=== PATIENT | male | born 1965 | race Caucasian/White ===

== ENCOUNTER → 2016-09-02 | Outpatient (CLI) | payer OTHER ==
[~2016-09-02] MED LIST: ATOR-22 PO; AZAT50TA5 PO; CLIN1LOT; CYAN10005 PO; FOLIC ACID PO; FRRG PO; GEMF600T3 PO; LISI-725 PO; PRED10TA PO; PROP80TA2 PO; WARF5TAB7 PO
[2016-09-02 13:15] LABS: BASO % 0.4 %; BASO ABS # 0.04 K/uL (0-0.2); COMPLETE YES; EOS % 1.4 %; HEMATOCRIT 35.4 % (42-52); IG% 2.3 %; INR 2.4 (0.9-1.1); LYMPH % 19.8 %; LYMPH ABS # 1.84 K/uL (1.2-3.4); MEAN CELL VOLUME 98.9 fL (80-100); MEAN CORPUSCULAR HEMOGLOBIN 33.2 pg (25-34); MEAN CORPUSCULAR HGB CONC 33.6 g/dl (32-36); MEAN PLATELET VOLUME 8.9 fL (7.4-10.4); MONO % 8.1 %; PLATELET COUNT 309 K/uL (130-400); PROTHROMBIN TIME (PATIENT) 26.7 SECONDS (9.0-12.0); RED BLOOD COUNT 3.58 M/uL (4.7-6.1); WHITE BLOOD COUNT 9.27 K/uL (4.8-10.8)
[2016-09-02 13:27] LABS: URINE APPEARANCE CLEAR (CLEAR); URINE BILIRUBIN NEG (NEG); URINE COLOR YELLOW; URINE EPITHELIAL CELL AUTO 0-5 /lpf (0-5); URINE NITRITE NEG (NEG); URINE PH 6.5 (4.5-7.5); URINE SPECIFIC GRAVITY 1.009 (1.000-1.030); UROBILINOGEN NEG (NEG)
[2016-09-02 13:44] LABS: MANUAL MICROSCOPIC REQUIRED? NO; REVIEW REQ? NO
[2016-09-02 13:50] LABS: ESTIMATED AVERAGE GLUCOSE 117 mg/dl; HA1C FLAG Normal (Normal)
[2016-09-02 14:16] LABS: ALT/SGPT 16 U/L (12-78); AST/SGOT 16 U/L (15-37); BLOOD UREA NITROGEN 55 mg/dl (7-18); BUN/CREATININE RATIO 21.3 (10-20); CALCIUM 8.6 mg/dl (8.5-10.1); CARBON DIOXIDE 21 mmol/L (21-32); CHLORIDE 105 mmol/L (98-107); CHOLESTEROL 154 mg/dl (0-200); GLUCOSE 99 mg/dl (70-99); POTASSIUM 4.4 mmol/L (3.5-5.1); SODIUM 138 mmol/L (136-145); TRIGLYCERIDES 218 mg/dl (0-150); VERY LOW DENSITY LIPOPROT CALC 44 mg/dl
[2016-09-02 14:19] LABS: CHOLESTEROL/HDL RATIO 3.5; HDL CHOLESTEROL 44 mg/dl; LDL CHOLESTEROL CALCULATED 66 mg/dl
== END | disposition home or self-care (01) ==
LOC: C.LABMFLN 08:34
PROVIDERS: ATTEND Internal Medicine
DX: E78.00 Pure hypercholesterolemia, unspecified (principal); N28.9 Disorder of kidney and ureter, unspecified; D62 Acute posthemorrhagic anemia; I82.409 Acute embolism and thrombosis of unspecified deep veins of unspecified lower extremity; Z94.0 Kidney transplant status

== ENCOUNTER → 2016-12-05 | Outpatient (CLI) | payer OTHER ==
[2016-12-05 13:15] LABS: BASO % 0.4 %; BASO ABS # 0.04 K/uL (0-0.2); COMPLETE YES; HEMATOCRIT 38.5 % (42-52); IG% 2.1 %; LYMPH % 19.6 %; LYMPH ABS # 2.19 K/uL (1.2-3.4); MEAN CELL VOLUME 102.4 fL (80-100); MEAN CORPUSCULAR HGB CONC 32.2 g/dl (32-36); MEAN PLATELET VOLUME 9.1 fL (7.4-10.4); NEUT % 69.9 %; PLATELET COUNT 315 K/uL (130-400); RED BLOOD COUNT 3.76 M/uL (4.7-6.1); WHITE BLOOD COUNT 11.19 K/uL (4.8-10.8)
[2016-12-05 14:01] LABS: BLOOD UREA NITROGEN 58 mg/dl (7-18); BUN/CREATININE RATIO 23.2 (10-20); CARBON DIOXIDE 24 mmol/L (21-32); CHLORIDE 106 mmol/L (98-107); GLUCOSE 95 mg/dl (70-99); POTASSIUM 4.4 mmol/L (3.5-5.1); SODIUM 140 mmol/L (136-145)
[2016-12-05 14:06] LABS: FERRITIN 1837.9 ng/ml (8.0-388.0); TOTAL IRON BINDING CAPACITY 265 mcg/dl (250-450)
== END | disposition home or self-care (01) ==
LOC: C.LABMFLN 09:00
PROVIDERS: ATTEND Internal Medicine
DX: M10.9 Gout, unspecified (principal); N18.9 Chronic kidney disease, unspecified

== ENCOUNTER → 2016-12-21 | Outpatient (CLI) | payer OTHER ==
[2016-12-21 13:05] LABS: INR 2.1 (0.9-1.1); PROTHROMBIN TIME (PATIENT) 23.4 SECONDS (9.0-12.0)
== END | disposition home or self-care (01) ==
LOC: C.LABMFLN 08:49
PROVIDERS: ATTEND Internal Medicine
DX: I82.409 Acute embolism and thrombosis of unspecified deep veins of unspecified lower extremity (principal)

== ENCOUNTER → 2017-03-16 | Outpatient (CLI) | payer OTHER ==
[2017-03-16 13:37] LABS: HEMATOCRIT 35.8 % (42-52); MEAN CELL VOLUME 102.6 fL (80-100); MEAN CORPUSCULAR HGB CONC 32.1 g/dl (32-36); PLATELET COUNT 331 K/uL (130-400); RED BLOOD COUNT 3.49 M/uL (4.7-6.1); WHITE BLOOD COUNT 9.61 K/uL (4.8-10.8)
[2017-03-16 13:52] LABS: INR 2.2 (0.9-1.1); PROTHROMBIN TIME (PATIENT) 24.1 SECONDS (9.0-12.0)
[2017-03-16 14:21] LABS: ESTIMATED AVERAGE GLUCOSE 117 mg/dl; HA1C FLAG Normal (Normal)
[2017-03-16 14:34] LABS: ALT/SGPT 18 U/L (12-78); AST/SGOT 18 U/L (15-37); BLOOD UREA NITROGEN 46 mg/dl (7-18); BUN/CREATININE RATIO 19.1 (10-20); CALCIUM 8.3 mg/dl (8.5-10.1); CARBON DIOXIDE 22 mmol/L (21-32); CHLORIDE 107 mmol/L (98-107); CHOLESTEROL 143 mg/dl (0-200); GLUCOSE 93 mg/dl (70-99); POTASSIUM 4.4 mmol/L (3.5-5.1); SODIUM 138 mmol/L (136-145); TRIGLYCERIDES 269 mg/dl (0-150); VERY LOW DENSITY LIPOPROT CALC 54 mg/dl
[2017-03-16 14:41] LABS: COMPLETE YES; EOSINOPHIL % 2.6 %; LYMPH ABS # 4.01 K/uL (1.2-3.4); LYMPHOCYTE % 41.7 %; MYELOCYTE % 3.5 %
[2017-03-16 14:45] LABS: CHOLESTEROL/HDL RATIO 3.8; HDL CHOLESTEROL 38 mg/dl; LDL CHOLESTEROL CALCULATED 51 mg/dl
[2017-03-16 14:46] LABS: URINE APPEARANCE CLEAR (CLEAR); URINE BILIRUBIN NEG (NEG); URINE COLOR YELLOW; URINE EPITHELIAL CELL AUTO 0-5 /lpf (0-5); URINE NITRITE NEG (NEG); URINE PH 6.5 (4.5-7.5); URINE SPECIFIC GRAVITY 1.012 (1.000-1.030); UROBILINOGEN NEG (NEG)
[2017-03-16 14:51] LABS: MANUAL MICROSCOPIC REQUIRED? NO; REVIEW REQ? NO
== END | disposition home or self-care (01) ==
LOC: C.LABMFLN 07:14
PROVIDERS: ATTEND Internal Medicine
DX: E78.00 Pure hypercholesterolemia, unspecified (principal); I82.409 Acute embolism and thrombosis of unspecified deep veins of unspecified lower extremity

== ENCOUNTER → 2017-06-28 | Outpatient (CLI) | payer OTHER ==
[2017-06-28 12:45] LABS: BASO % 0.4 %; BASO ABS # 0.05 K/uL (0-0.2); COMPLETE YES; EOS % 1.3 %; HEMATOCRIT 36.7 % (42-52); IG% 1.7 %; LYMPH % 16.5 %; LYMPH ABS # 2.01 K/uL (1.2-3.4); MEAN CELL VOLUME 102.8 fL (80-100); MEAN CORPUSCULAR HEMOGLOBIN 33.1 pg (25-34); MEAN CORPUSCULAR HGB CONC 32.2 g/dl (32-36); MEAN PLATELET VOLUME 9.1 fL (7.4-10.4); MONO % 5.7 %; NEUT % 74.4 %; PLATELET COUNT 265 K/uL (130-400); RED BLOOD COUNT 3.57 M/uL (4.7-6.1); WHITE BLOOD COUNT 12.21 K/uL (4.8-10.8)
[2017-06-28 13:06] LABS: BLOOD UREA NITROGEN 70 mg/dl (7-18); BUN/CREATININE RATIO 27.6 (10-20); CALCIUM 8.8 mg/dl (8.5-10.1); CARBON DIOXIDE 22 mmol/L (21-32); CHLORIDE 107 mmol/L (98-107); CREATININE 2.53 mg/dl (0.60-1.40); GLUCOSE 100 mg/dl (70-99); POTASSIUM 4.1 mmol/L (3.5-5.1); SODIUM 137 mmol/L (136-145)
== END | disposition home or self-care (01) ==
LOC: C.LABMFLN 07:30
PROVIDERS: ATTEND Internal Medicine
DX: E78.00 Pure hypercholesterolemia, unspecified (principal)

== ENCOUNTER 2023-06-22 15:49 | Inpatient (IN) ==
--- NOTE | 2023-06-22 16:48 | XRay Report ---
XR chest 1V not portable CLINICAL HISTORY: Chest pain, nonspecific TECHNIQUE: Single frontal radiograph of the chest was obtained. Comparison: Comparison is made to chest radiograph 11/05/2018 FINDINGS: No lines and tubes are seen. The cardiomediastinal silhouette is normal. The lungs are clear. No evid ence of pleural effusion or pneumothorax. IMPRESSION: No acute chest disease. ACT 112: Negative or not required by law. Electronically signed by: Zak Arredondo M.D. 06/22/2023 4:47 PM
[2023-06-22 18:10] LABS: Basophils # (auto) 0.08 K/uL (0.00-0.20); Basophils % (auto) 0.6 %; Eosinophils # (auto) 0.16 K/uL (0.00-0.50); Eosinophils % (auto) 1.2 %; Hematocrit (blood only) 35.7 % (42.0-52.0); Hemoglobin 11.5 g/dl (14.0-18.0); Immature Granulocytes % (auto) 4.4 %; Lymphocytes % (auto) 7.4 %; Mean Corpuscular Hemoglobin 33.8 pg (25.0-34.0); Mean Corpuscular Hgb Conc 32.2 g/dL (32.0-36.0); Mean Platelet Volume 8.9 fL (9.4-12.4); Monocytes # (auto) 0.66 K/uL (0.11-0.59); Monocytes % (auto) 4.9 %; Neutrophils # (auto) 11.05 K/uL (1.40-6.50); Neutrophils % (auto) 81.5 %; Platelet Count 434 K/uL (130-400); RDW Coefficient of Variation 15.3 % (11.5-14.5); RDW Standard Deviation 59.1 fL (36.4-46.3); White Blood Count 13.55 K/ul (4.8-10.8)
[2023-06-22 18:26] LABS: Albumin Globulin Ratio 1.3 (0.9-2); BUN Creatinine Ratio 23.9 (10-20); Bilirubin,Total 0.5 mg/dl (0.2-1.0); Calcium 8.7 mg/dl (8.6-10.3); Creatinine Clr Calc Pharmacy 25.7 ml/min; Est GFR (African American) 25.7 ml/min; Est GFR (Non-African American) 22.2 ml/min; Globulin 3.1 gm/dl (2.5-4.0); Potassium 5.1 mmol/L (3.5-5.1); Total Protein 7.1 gm/dl (6.0-8.3)
[2023-06-22 18:36] LABS: Troponin I High Sensitivity 264.2 pg/ml (0-20)
[2023-06-22 18:37] LABS: INR 2.1 (0.9-1.1); Partial Thromboplastin Ratio 1.2; Partial Thromboplastin Time 32.5 Seconds (21.0-31.0); Prothrombin Time 22.4 Seconds (9.0-12.0)
--- NOTE | 2023-06-22 19:05 | Emergency Department Note ---
Impression & Plan KNOX (dyspnea on exertion), Chest discomfort, Elevated troponin, CKD (chronic kidney disease) ED Provider Note ED Provider Note NAME: GUERO SIMEON AGE:58 SEX: Male : 1965 ARRIVES VIA: Private vehicle INFORMANT: Patient ED PROVIDER(s): Heather Alicea DO CHIEF COMPLAINT: Dyspnea on exertion, chest discomfort, referred here by nephrology HPI: This is a 58-year-old male who presents to the emergency department due to concern for increased dyspnea with exertion with accompanying chest discomfort that he describes as a burning. Patient mention this to other providers today when he was having a check of his INR and they contacted his flood control engineer, Dr. Noyola, who instructed him this afternoon to come to the emergency room for additional evaluation. Patient denies any history of heart problems. He states there are sick people at work although he has not otherwise felt overtly ill. He denies any fevers, chills, URI symptoms. No recent increased leg swelling. Patient is a kidney transplant patient. Transplant performed back in 1979. He states only recent medication change was a calcium supplement that was added several weeks ago. He states he did have a sinus infection about 3 to 4 weeks ago but felt as though that had resolved. INR today 2.1. Patient does have a history of DVT, and states there is an inherited clotting disorder in his family. PAST MEDICAL HISTORY:See Below PAST SURGICAL HISTORY:See Below FAMILY HISTORY:See Below SOCIAL HISTORY:See Below HOME MEDICATIONS:See Below ALLERGIES:See Below VITALS:See Below PHYSICAL EXAMINATION: GENERAL: alert, well appearing, well nourished, no distress, non-toxic EYE EXAM: normal conjunctiva, PERRL and EOM's grossly intact OROPHARYNX: no exudate, no erythema, lips, buccal mucosa, and tongue normal and mucous membranes are moist NECK: supple, no nuchal rigidity, no adenopathy, non-tender LUNGS: Clear to auscultation. Normal chest wall mechanics, no w/r/r HEART: no murmurs, S1 normal and S2 normal ABDOMEN: abdomen soft, non-tender, normo-active bowel sounds, no masses, no rebound or guarding. BACK: Back is symmetrical on inspection and there is no deformity, no midline tenderness, no CVA tenderness. SKIN: no rashes, petechiae, orbruising UPPER EXTREMITIES: upper extremities are grossly normal. FROM, nml pulses b/l. LOWER EXTREMITIES: No pitting edema. FROM, nml pulses b/l. NEURO EXAM: Normal sensorium, cranial nerves II-XII grossly intact, normal speech, no facial droop,nogross weakness of arms, no gross weakness of legs. Gross sensation intact. No ataxia. Vital Signs: reviewed and remarkable Differential Diagnosis: pneumonia, bronchitis, COPD/Asthma exacerbation, pneumothorax, pulmonary embolism, congestive heart failure, acute coronary syndrome, as well as others were considered MEDICAL DECISION MAKING: This is a 58-year-old male presents emergency department due to concern for 2 weeks of increased dyspnea on exertion and chest discomfort. Patient well- appearing here and had no symptoms while at rest. He was afebrile vital signs stable. Labs drawn and sent, IV established, EKG and chest were performed at bedside and interpreted by me and patient monitored in telemetry. I did discuss case with the patient's flood control engineer this patient stated he had been referred here by nephrology. I do not feel this is a primary nephrology problem. I was concerned and discussed with the patient additional inpatient evaluation due to possible cardiac etiology of his symptoms. Patient does have multiple risk factors for coronary artery disease. Case discussed with the mother and the hospitalist team for additional evaluation and management. Patient had no acute EKG changes. He was noted to have an elevated troponin. While patient does have chronic kidney disease, the troponin elevation feels disproportional and there are no priors to compare to. A bio fire nasal swab was added and did show COVID-19. I suspect this may be from patient's reported sinus infection 3 weeks ago as patient has no further URI symptoms, fevers or chills in the last 2 weeks. I do not suspect acute vascular etiology of his symptoms. I have a low suspicion for occult PE as patient is anticoagulated. Consultation(s): 1944: Discussed with Dr. Noyola, nephrology. We reviewed labs. Patient is stable from a renal perspective. 2039: Discussed with Dr. Pham, not any hospitalist, for additional evaluation and management. ER Treatment Provided: See below Diagnostics Interpreted By Me: -ECG: Normal sinus at 75 with first-degree AV block, leftward axis, right bundle branch block, normal QTc, ST depression noted in 1, aVL -Cardiac Monitoring: An order was placed for continuous cardiac monitoring. The monitor shows a rate of 70 with normal sinus rhythm. -Laboratory studies: As stated above and show below. -Imaging studies: X-ray Chest: A single view study of the chest was reviewed and was negative for cardiomegaly, focal infiltrate, effusion, pulmonary edema, or wide mediastinum. Triage Nursing Note Reviewed Prior/Outside Records Reviewed -prior nephrology office visit reviewed Past Med/Surg History Medical History Blood clotting disorder pt unable to specify -- dx after DVT LLE > 5 years ago - on warfarin Chronic steroid use Gout Osteoarthritis History of renal dialysis prior to transplant History of GI bleed GERD (gastroesophageal reflux disease) TUMS prn History of DVT (deep vein thrombosis) LLE - > 5 years ago - clotting disorder - on warfarin Anemia due to chronic kidney disease Anticoagulant long-term use Gout Hypercholesterolemia Hypertension Immunosuppressed status 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 Lynn Family History Brother Diabetes Mother Diabetes Other Coronary heart disease Heart disease Hypertension No family history of adverse response to anesthesia Social History Smoking Status: Never smoker Second Hand Exposure: No; Do You Dip or Chew Tobacco: No; Hx Alcohol Use: No Hx Substance Use: No Preferred Language: Mauritanian Communication Ability: Effective Visual Impairment: No Limitations Hearing Ability: Normal Egyptologist Required: No Beliefs That Will Affect Care: None Current Living Situation: Spouse Current Living Situation Comment: home with current occupational status: employed Feels Safe at Home: Yes Assistive Devices: None Allergies Allergies Allergy/AdvReac Type Severity Reaction Status Date / Time NSAIDS (Non-Steroidal AdvReac Unknown GI bleeds Verified 06/22/23 19:55 Anti-Inflamma Home Meds Home Medications Medication Instructions Recorded Confirmed folic acid 800 mcg tablet 800 mcg PO DAILY 10/25/19 06/22/23 calcium carbonate 300 mg (750 mg) 300 mg PO BID PRN Heartburn 01/01/20 06/22/23 chewable tablet (Tums) cyanocobalamin (vitamin B-12) 2,000 mcg PO DAILY 01/12/23 06/22/23 1,000 mcg tablet calcitriol 0.25 mcg capsule 0.25 mcg PO HS 06/22/23 06/22/23 gemfibrozil 600 mg tablet 600 mg PO HS 06/22/23 06/22/23 hydrocortisone 2.5 % topical cream 1 applic topical BID PRN Skin 06/22/23 06/22/23 Irritation lisinopril 20 mg tablet 20 mg PO QAM 06/22/23 06/22/23 Previous Rx's Medication Instructions Recorded warfarin 5 mg tablet 5 mg PO DAILY #90 tabs 03/01/22 clindamycin 1 %-benzoyl peroxide 5 1 applic topical BID PRN acne #45 07/08/22 % topical gel grams atorvastatin 20 mg tablet 20 mg PO QPM #90 tabs 07/11/22 propranolol 160 mg capsule,24 160 mg PO BID #180 caps 10/14/22 hr,extended release amoxicillin 500 mg tablet 2,000 mg (4 x 500 mg) PO ONCE #4 01/17/23 tabs azathioprine 50 mg tablet 150 mg (3 x 50 mg) PO QAM #270 tabs 03/09/23 prednisone 10 mg tablet 10 mg PO QAM #90 tabs 04/28/23 Results & Data (ED) Vital Signs Vital Signs - 24 hr 06/22/23 16:04 06/22/23 18:44 06/22/23 18:46 Temperature 36.4 C L Temperature Source Temporal Artery Scan Pulse Rate 73 Pulse Rate [Apical] 81 Respiratory Rate 20 19 Respiratory Effort / Characteristics Non-Labored Spontaneous Non-Labored Spontaneous Respiratory Depth Normal Normal Respiratory Pattern Regular Blood Pressure 169/107 H Blood Pressure [Right Arm] 182/109 H Blood Pressure Mean 127 Blood Pressure Mean [Right Arm] 133 Blood Pressure Position [Right Arm] Semi-fowlers Pulse Oximetry 97 99 Oxygen Delivery Method Room Air Room Air Room Air Sepsis Recent Fever Within 48 Hours No Sepsis New/Unexplained Change in Mental Status No Sepsis Action Taken by Nursing No Action Required 06/22/23 18:54 06/22/23 19:17 06/22/23 19:18 Temperature Temperature Source Pulse Rate 77 Pulse Rate [Apical] Respiratory Rate Respiratory Effort / Characteristics Respiratory Depth Respiratory Pattern Blood Pressure Blood Pressure [Right Arm] 178/114 H Blood Pressure Mean Blood Pressure Mean [Right Arm] 135 Blood Pressure Position [Right Arm] Semi-fowlers Pulse Oximetry Oxygen Delivery Method Room Air Sepsis Recent Fever Within 48 Hours Sepsis New/Unexplained Change in Mental Status Sepsis Action Taken by Nursing Laboratory Data 06/23/23 03:39 06/23/23 03:39 Lab Results 06/22/23 06/22/23 06/22/23 Range/Units 17:46 19:16 20:00 WBC 13.55 H (4.8-10.8) K/ul RBC 3.40 L (4.70-6.10) M/uL Hgb 11.5 L (14.0-18.0) g/dl Hct 35.7 L (42.0-52.0) % MCV 105.0 H (80.0-100.0) fL MCH 33.8 (25.0-34.0) pg MCHC 32.2 (32.0-36.0) g/dL RDW Std Deviation 59.1 H (36.4-46.3) fL RDW Coeff of Zeus 15.3 H (11.5-14.5) % Plt Count 434 H (130-400) K/uL MPV 8.9 L (9.4-12.4) fL Immature Gran % (Auto) 4.4 % Neut % (Auto) 81.5 % Lymph % (Auto) 7.4 % Mcpherson % (Auto) 4.9 % Eos % (Auto) 1.2 % Baso % (Auto) 0.6 % Neut # (Auto) 11.05 H (1.40-6.50) K/uL Lymph # (Auto) 1.00 L (1.20-3.40) K/uL Mcpherson # (Auto) 0.66 H (0.11-0.59) K/uL Eos # (Auto) 0.16 (0.00-0.50) K/uL Baso # (Auto) 0.08 (0.00-0.20) K/uL Immature Gran # (Auto) 0.60 H (0.01-0.20) K/uL PT 22.4 H (9.0-12.0) Seconds INR 2.1 H (0.9-1.1) APTT 32.5 H (21.0-31.0) Seconds PTT Ratio 1.2 Sodium 136 (136-145) mmol/L Potassium 5.1 (3.5-5.1) mmol/L Chloride 107 (98-107) mmol/L Carbon Dioxide 19 L (21-32) mmol/L Anion Gap 10 (3-11) BUN 71 H (6-23) mg/dl Creatinine 2.97 H (0.6-1.4) mg/dl Est Cr Clr Drug Dosing 25.7 ml/min Est GFR ( Amer) 25.7 ml/min Est GFR (Non-Af Amer) 22.2 ml/min BUN/Creatinine Ratio 23.9 H (10-20) Glucose 109 H (70-99(Fasting)) mg/dl Calcium 8.7 (8.6-10.3) mg/dl Total Bilirubin 0.5 (0.2-1.0) mg/dl AST 16 (13-39) U/L ALT 9 (7-52) U/L Alkaline Phosphatase 46 (34-104) U/L Troponin I High Sens 264.2 H* 285.2 H* (0-20) pg/ml Total Protein 7.1 (6.0-8.3) gm/dl Albumin 4.0 (3.4-5.0) gm/dl Globulin 3.1 (2.5-4.0) gm/dl Albumin/Globulin Ratio 1.3 (0.9-2) Procalcitonin < 0.05 (0-0.5) ng/ml Adenovirus (PCR) Not Detected (NotDetected) B. pertussis DNA (PCR) Not Detected (NotDetected) B.parapertussis DNA PCR Not Detected (NotDetected) C. pneumoniae DNA (PCR) Not Detected (NotDetected) Coronavirus OC43 (PCR) Not Detected (NotDetected) Coronavirus HKU1 (PCR) Not Detected (NotDetected) Coronavirus 229E (PCR) Not Detected (NotDetected) SARS-CoV-2 (PCR) DETECTED A* (NotDetected) Coronavirus NL63 (PCR) Not Detected (NotDetected) Human Metapneumovir PCR Not Detected (NotDetected) Influenza Type A (PCR) Not Detected (NotDetected) Influenza Type B (PCR) Not Detected (NotDetected) M. pneumoniae (PCR) Not Detected (NotDetected) Parainfluenza 1 (PCR) Not Detected (NotDetected) Parainfluenza 2 (PCR) Not Detected (NotDetected) Parainfluenza 3 (PCR) Not Detected (NotDetected) Parainfluenza 4 (PCR) Not Detected (NotDetected) RSV (PCR) Not Detected (NotDetected) Entero/Rhino (PCR) Not Detected (NotDetected) Administered Medications Atorvastatin Calcium (Atorvastatin 20 Mg Tab) 20 mg PO QPM [facility] Stop: 07/23/23 01:05 Last Admin: 06/23/23 21:23 Dose: 20 mg Documented By: JOSE GUADALUPE Admin: 06/23/23 02:17 Dose: 20 mg Documented By: PENELOPE Azathioprine (Azathioprine 50 Mg Tab) [facility] [place] Stop: 07/23/23 08:59 Last Admin: 06/23/23 08:11 Dose: 150 mg Documented By: QGV Calcitriol (Calcitriol 0.25 Mcg Capsule) 0.25 mcg PO [facility] Stop: 07/23/23 01:05 Last Admin: 06/23/23 21:23 Dose: 0.25 mcg Documented By: JOSE GUADALUPE Admin: 06/23/23 02:17 Dose: 0.25 mcg Documented By: PENELOPE Gemfibrozil (Gemfibrozil 600 Mg Tab) 600 mg PO [facility] Stop: 07/23/23 01:05 Last Admin: 06/23/23 21:22 Dose: 600 mg Documented By: JOSE GUADALUPE Admin: 06/23/23 02:17 Dose: 600 mg Documented By: PENELOPE Lisinopril (Lisinopril 20 Mg Tab) 20 mg PO QAM [facility] Stop: 07/23/23 08:59 Last Admin: 06/23/23 08:10 Dose: 20 mg Documented By: QGV Pantoprazole Sodium (Pantoprazole 40 Mg Tab) 40 mg PO DAILY [facility] Stop: 07/23/23 08:59 Last Admin: 06/23/23 08:10 Dose: 40 mg Documented By: QGV Prednisone (Prednisone 10 Mg Tablet) 10 mg PO QAM [facility] Stop: 07/23/23 08:59 Last Admin: 06/23/23 08:11 Dose: 10 mg Documented By: QGV Propranolol HCl (Propranolol Hcl La 80 Mg Capcr) 160 mg PO BID [facility] Stop: 07/23/23 01:05 Last Admin: 06/23/23 21:23 Dose: 160 mg Documented By: Admin: 06/23/23 08:11 Dose: 160 mg Documented By: Admin: 06/23/23 02:17 Dose: 160 mg Documented By: KMB Warfarin Sodium (Warfarin Sod 2.5 Mg Tab) 2.5 mg PO MoFr@1600 [facility] Stop: 07/23/23 15:59 Last Admin: 06/23/23 17:19 Dose: 2.5 mg Documented By: MES Imaging Data Radiologist's Impression: Chest X-Ray 06/22/23 16:07 XR chest 1V not portable CLINICAL HISTORY: Chest pain, nonspecific TECHNIQUE: Single frontal radiograph of the chest was obtained. Comparison: Comparison is made to chest radiograph 11/05/2018 FINDINGS: No lines and tubes are seen. The cardiomediastinal silhouette is normal. The lungs are clear. No evidence of pleural effusion or pneumothorax. IMPRESSION: No acute chest disease. ACT 112: Negative or not required by law. Electronically signed by: Zak Arredondo M.D. 06/22/2023 4:47 PM Discharge Plan Visit Data Chief Complaint: Shortness of Breath/Dyspnea Stated Complaint: REF BY ZULY VELARDE ED Provider: Heather Alicea Discharge Problem: KNOX (dyspnea on exertion), Chest discomfort, Elevated troponin, CKD (chronic kidney disease) Patient Disposition: Home - Self-Care Discharge Instructions Interventions: ED Discharge Assessment Last Done: 06/23/23 01:07
[2023-06-22 20:43] LABS: Adenovirus PCR Not Detected (NotDetected); Bordetella parapertussis PCR Not Detected (NotDetected); Bordetella pertussis PCR Not Detected (NotDetected); Chlamydia pneumoniae PCR Not Detected (NotDetected); Coronavirus 229E PCR Not Detected (NotDetected); Coronavirus HKU1 PCR Not Detected (NotDetected); Coronavirus NL63 PCR Not Detected (NotDetected); Coronavirus OC43PCR Not Detected (NotDetected); Human Metapneumovirus PCR Not Detected (NotDetected); Influenza A PCR Not Detected (NotDetected); Influenza B PCR Not Detected (NotDetected); Mycoplasma pneumoniae PCR Not Detected (NotDetected); Parainfluenza Virus 1 PCR Not Detected (NotDetected); Parainfluenza Virus 2 PCR Not Detected (NotDetected); Parainfluenza Virus 3 PCR Not Detected (NotDetected); Parainfluenza Virus 4 PCR Not Detected (NotDetected); Respiratory Syncytial VirusPCR Not Detected (NotDetected); Rhinovirus/Enterovirus PCR Not Detected (NotDetected)
[2023-06-22 20:48] LABS: Coronavirus CoV-2 (COVID19)PCR DETECTED (NotDetected)
--- NOTE | 2023-06-22 20:51 | History & Physical Report ---
Date of Service June 22, 2023 Assessment & Plan (1) Shortness of breath: Plan: +Covid-19 may be etiology of patient's SOB. He reports a head cold two weeks ago - this may have been the initial infection now with continued positive PCR testing? Difficult to tell. Concern also for elevated troponin and patient's report of exertional "heart burn symptoms" -Trend troponin -Check 2 echo -Symptomatic management for Covid (2) Elevated troponin: Plan: Patient denies chest pain. -Trend troponin -Patient may benefit from outpatient stress testing (3) Kidney replaced by transplant: Plan: Chronic -Continue Prednisone History of Present Illness Chief Complaint: shortness of breath Primary Care Provider: Jorge Luis Noyola DO 58yo male with history of renal transplant on Prednisone, hypercoag state on Coumadin anticoagulation presenting with progressive dyspnea over the last few weeks. He reports he had a cold 2 weeks ago. He has occasional chest discomfort and sensation of heart burn and nausea after exertion - walking up two flights of stairs triggers these symptoms. He denies overt chest pain, palpitations or edema, no orthopnea or weight gain. No fever, chills, vomiting or diarrhea. Allergies Allergy/AdvReac Type Severity Reaction Status Date / Time NSAIDS (Non-Steroidal AdvReac Unknown GI bleeds Verified 06/22/23 19:55 Anti-Inflamma Home Medications Medication Instructions Recorded Confirmed Type folic acid 800 mcg tablet 800 mcg PO DAILY 10/25/19 06/22/23 History calcium carbonate 300 mg (750 mg) 300 mg PO BID PRN Heartburn 01/01/20 06/22/23 History chewable tablet (Tums) warfarin 5 mg tablet 5 mg PO DAILY #90 tabs 03/01/22 06/22/23 Rx clindamycin 1 %-benzoyl peroxide 5 1 applic topical BID PRN acne #45 07/08/22 06/22/23 Rx % topical gel grams atorvastatin 20 mg tablet 20 mg PO QPM #90 tabs 07/11/22 06/22/23 Rx propranolol 160 mg capsule,24 160 mg PO BID #180 caps 10/14/22 06/22/23 Rx hr,extended release cyanocobalamin (vitamin B-12) 2,000 mcg PO DAILY 01/12/23 06/22/23 History 1,000 mcg tablet amoxicillin 500 mg tablet 2,000 mg (4 x 500 mg) PO ONCE #4 06/27/23 11/30/23 Rx tabs azathioprine 50 mg tablet 150 mg (3 x 50 mg) PO QAM #270 tabs 03/09/23 06/22/23 Rx prednisone 10 mg tablet 10 mg PO QAM #90 tabs 04/28/23 06/22/23 Rx calcitriol 0.25 mcg capsule 0.25 mcg PO HS 06/22/23 06/22/23 History gemfibrozil 600 mg tablet 600 mg PO HS 06/22/23 06/22/23 History hydrocortisone 2.5 % topical cream 1 applic topical BID PRN Skin 06/22/23 06/22/23 History Irritation lisinopril 20 mg tablet 20 mg PO QAM 06/22/23 06/22/23 History Past Med/Surg History Medical History Blood clotting disorder pt unable to specify -- dx after DVT LLE > 5 years ago - on warfarin Chronic steroid use Gout Osteoarthritis History of renal dialysis prior to transplant History of GI bleed GERD (gastroesophageal reflux disease) TUMS prn History of DVT (deep vein thrombosis) LLE - > 5 years ago - clotting disorder - on warfarin Anemia due to chronic kidney disease Anticoagulant long-term use Gout Hypercholesterolemia Hypertension Immunosuppressed status 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 Lynn Family History Brother Diabetes Mother Diabetes Other Coronary heart disease Heart disease Hypertension No family history of adverse response to anesthesia Social History Smoking Status: Never smoker Second Hand Exposure: No; Do You Dip or Chew Tobacco: No; Tobacco Cessation Education Requested by Patient: No Hx Alcohol Use: No Hx Substance Use: No Preferred Language: Armenian Communication Ability: Effective Visual Impairment: No Limitations Hearing Ability: Normal Trial Judge Required: No Beliefs That Will Affect Care: None Current Living Situation: Spouse Current Living Situation Comment: home with current occupational status: employed Other Information That Helps Us Care for You: No Feels Safe at Home: Yes Safety Concerns: Feels Safe At This Time Assistive Devices: Glasses Review of Systems Review of Systems: All systems reviewed & are unremarkable except as noted in HPI & below Physical Exam Physical Exam: General: patient resting comfortably, NAD, non-toxic in appearance, AA&O x 4 Skin: warm, dry, intact, no rashes or lesions HEENT: NC/AT, PERRL, EOMI, anicteric sclera, conjunctiva without injection, external ear normal to inspection and nontender, nares patent, moist mucus membranes, dentition intact, no oropharyngeal lesions, neck supple, trachea midline, no LAD, no thyromegaly, no JVD Heart: +S1/S2, regular, no m/r/g Lungs: equal air entry bilaterally, no rales/rhonchi/wheezes Abd: +BS, soft, NT/ND, no masses/organomegaly/ascites, transplant in RLQ - no tenderness Ext: warm, 2+ pulses in UE/LE bilaterally, no clubbing/cyanosis or edema Neuro: nonfocal, patient AA&O x 4, speech intact, no facial droop, moving all extremities on command with equal strength 5/5 Results & Data Results & Data Vital Signs (Past 12 Hours) Vital Signs Temp Pulse Pulse Resp BP BP Pulse Ox 06/22/23 19:18 06/22/23 19:17 178/114 H 06/22/23 18:54 77 06/22/23 18:46 99 06/22/23 18:44 81 19 182/109 H 06/22/23 16:04 36.4 C L 73 20 169/107 H 97 O2 Del Method 06/22/23 19:18 Room Air 06/22/23 19:17 06/22/23 18:54 06/22/23 18:46 Room Air 06/22/23 18:44 Room Air 06/22/23 16:04 Room Air Laboratory Results Laboratory Results WBC 10.64 K/ul (4.8-10.8) 06/23/23 03:39 RBC 3.06 M/uL (4.70-6.10) L 06/23/23 03:39 Hgb 10.4 g/dl (14.0-18.0) L 06/23/23 03:39 Hct 32.0 % (42.0-52.0) L 06/23/23 03:39 MCV 104.6 fL (80.0-100.0) H 06/23/23 03:39 MCH 34.0 pg (25.0-34.0) 06/23/23 03:39 MCHC 32.5 g/dL (32.0-36.0) 06/23/23 03:39 RDW Std Deviation 58.6 fL (36.4-46.3) H 06/23/23 03:39 RDW Coeff of Zeus 15.3 % (11.5-14.5) H 06/23/23 03:39 Plt Count 376 K/uL (130-400) 06/23/23 03:39 MPV 8.8 fL (9.4-12.4) L 06/23/23 03:39 Immature Gran % (Auto) 4.4 % 06/22/23 17:46 Neut % (Auto) 81.5 % 06/22/23 17:46 Lymph % (Auto) 7.4 % 06/22/23 17:46 Ferry % (Auto) 4.9 % 06/22/23 17:46 Eos % (Auto) 1.2 % 06/22/23 17:46 Baso % (Auto) 0.6 % 06/22/23 17:46 Neut # (Auto) 11.05 K/uL (1.40-6.50) H 06/22/23 17:46 Lymph # (Auto) 1.00 K/uL (1.20-3.40) L 06/22/23 17:46 Ferry # (Auto) 0.66 K/uL (0.11-0.59) H 06/22/23 17:46 Eos # (Auto) 0.16 K/uL (0.00-0.50) 06/22/23 17:46 Baso # (Auto) 0.08 K/uL (0.00-0.20) 06/22/23 17:46 Immature Gran # (Auto) 0.60 K/uL (0.01-0.20) H 06/22/23 17:46 PT 21.7 Seconds (9.0-12.0) H 06/23/23 03:39 INR 2.1 (0.9-1.1) H 06/23/23 03:39 APTT 32.5 Seconds (21.0-31.0) H 06/22/23 17:46 PTT Ratio 1.2 06/22/23 17:46 Sodium 139 mmol/L (136-145) 06/23/23 03:39 Potassium 4.2 mmol/L (3.5-5.1) 06/23/23 03:39 Chloride 110 mmol/L (98-107) H 06/23/23 03:39 Carbon Dioxide 19 mmol/L (21-32) L 06/23/23 03:39 Anion Gap 10 (3-11) 06/23/23 03:39 BUN 70 mg/dl (6-23) H 06/23/23 03:39 Creatinine 2.95 mg/dl (0.6-1.4) H 06/23/23 03:39 Est Cr Clr Drug Dosing 25.8 ml/min 06/23/23 03:39 Est GFR ( Amer) 25.9 ml/min 06/23/23 03:39 Est GFR (Non-Af Amer) 22.3 ml/min 06/23/23 03:39 BUN/Creatinine Ratio 23.7 (10-20) H 06/23/23 03:39 Glucose 86 mg/dl (70-99(Fasting)) 06/23/23 03:39 Calcium 8.0 mg/dl (8.6-10.3) L 06/23/23 03:39 Total Bilirubin 0.5 mg/dl (0.2-1.0) 06/22/23 17:46 AST 16 U/L (13-39) 06/22/23 17:46 ALT 9 U/L (7-52) 06/22/23 17:46 Alkaline Phosphatase 46 U/L (34-104) 06/22/23 17:46 Troponin I High Sens 285.2 pg/ml (0-20) H* 06/22/23 20:00 Total Protein 7.1 gm/dl (6.0-8.3) 06/22/23 17:46 Albumin 4.0 gm/dl (3.4-5.0) 06/22/23 17:46 Globulin 3.1 gm/dl (2.5-4.0) 06/22/23 17:46 Albumin/Globulin Ratio 1.3 (0.9-2) 06/22/23 17:46 Procalcitonin < 0.05 ng/ml (0-0.5) 06/22/23 20:00 Adenovirus (PCR) Not Detected (NotDetected) 06/22/23 19:16 B. pertussis DNA (PCR) Not Detected (NotDetected) 06/22/23 19:16 B.parapertussis DNA PCR Not Detected (NotDetected) 06/22/23 19:16 C. pneumoniae DNA (PCR) Not Detected (NotDetected) 06/22/23 19:16 Coronavirus OC43 (PCR) Not Detected (NotDetected) 06/22/23 19:16 Coronavirus HKU1 (PCR) Not Detected (NotDetected) 06/22/23 19:16 Coronavirus 229E (PCR) Not Detected (NotDetected) 06/22/23 19:16 SARS-CoV-2 (PCR) DETECTED (NotDetected) A* 06/22/23 19:16 Coronavirus NL63 (PCR) Not Detected (NotDetected) 06/22/23 19:16 Human Metapneumovir PCR Not Detected (NotDetected) 06/22/23 19:16 Influenza Type A (PCR) Not Detected (NotDetected) 06/22/23 19:16 Influenza Type B (PCR) Not Detected (NotDetected) 06/22/23 19:16 M. pneumoniae (PCR) Not Detected (NotDetected) 06/22/23 19:16 Parainfluenza 1 (PCR) Not Detected (NotDetected) 06/22/23 19:16 Parainfluenza 2 (PCR) Not Detected (NotDetected) 06/22/23 19:16 Parainfluenza 3 (PCR) Not Detected (NotDetected) 06/22/23 19:16 Parainfluenza 4 (PCR) Not Detected (NotDetected) 06/22/23 19:16 RSV (PCR) Not Detected (NotDetected) 06/22/23 19:16 Entero/Rhino (PCR) Not Detected (NotDetected) 06/22/23 19:16 Impressions Chest X-Ray 06/22/23 16:07 XR chest 1V not portable CLINICAL HISTORY: Chest pain, nonspecific TECHNIQUE: Single frontal radiograph of the chest was obtained. Comparison: Comparison is made to chest radiograph 11/05/2018 FINDINGS: No lines and tubes are seen. The cardiomediastinal silhouette is normal. The lungs are clear. No evidence of pleural effusion or pneumothorax. IMPRESSION: No acute chest disease. ACT 112: Negative or not required by law. Electronically signed by: Zak Arredondo M.D. 06/22/2023 4:47 PM Code Status & VTE Plan VTE Prophylaxis Plan VTE Prophylaxis will be ordered: Yes PG Care Time/CCT Total # of Minutes Spent Total Time Spent with Patient: Total time spent is greater than 50% in coordination of care (as documented) at patient's floor/unit and/or counseling patient: Coding Level of Care Code 27237 INT INP/OBS CARE 2/55MIN Diagnoses Shortness of breath R06.02 Elevated troponin R79.89 Kidney replaced by transplant Z94.0
[2023-06-23] MEDS ORDERED: ACETAMINOPHEN 325 MG TAB PO PRN (01:06)
[2023-06-23] MEDS ORDERED: ONDANSETRON INJ 2 MG/ML 2 ML VIAL IV PRN (01:06)
[2023-06-23] MEDS: ATORVASTATIN 20 MG TAB PO SCH ×2 (02:17→21:23)
[2023-06-23] MEDS: PROPRANOLOL HCL LA 80 MG CAPCR PO SCH ×3 (02:17→21:23)
[2023-06-23] MEDS: CALCITRIOL 0.25 MCG CAPSULE PO SCH ×2 (02:17→21:23)
[2023-06-23] MEDS: gemfibroziL 600 MG TAB PO SCH ×2 (02:17→21:22)
[2023-06-23 03:57] LABS: Hemoglobin 10.4 g/dl (14.0-18.0); Mean Corpuscular Hgb Conc 32.5 g/dL (32.0-36.0); Mean Corpuscular Volume 104.6 fL (80.0-100.0); Mean Platelet Volume 8.8 fL (9.4-12.4); Platelet Count 376 K/uL (130-400); RDW Coefficient of Variation 15.3 % (11.5-14.5); RDW Standard Deviation 58.6 fL (36.4-46.3); Red Blood Count 3.06 M/uL (4.70-6.10); White Blood Count 10.64 K/ul (4.8-10.8)
[2023-06-23 04:11] LABS: BUN Creatinine Ratio 23.7 (10-20); Creatinine Clr Calc Pharmacy 25.8 ml/min; Est GFR (African American) 25.9 ml/min; Est GFR (Non-African American) 22.3 ml/min; Potassium 4.2 mmol/L (3.5-5.1)
[2023-06-23 04:24] LABS: INR 2.1 (0.9-1.1); Prothrombin Time 21.7 Seconds (9.0-12.0)
[2023-06-23 04:32] LABS: Troponin I High Sensitivity 294.7 pg/ml (0-20)
--- NOTE | 2023-06-23 06:46 | Hospitalist Progress Note ---
Date of Service June 23, 2023 Assessment & Plan (1) Elevated troponin: (2) KNOX (dyspnea on exertion): (3) CKD (chronic kidney disease): (4) Kidney replaced by transplant: Plan Shortness of breath +Covid-19 may be etiology of patient's SOB. He reports a head cold two weeks ago - this may have been the initial infection now with continued positive PCR testing? Difficult to tell. Concern also for elevated troponin and patient's [id number] of exertional "heart burn symptoms" -Symptomatic management for Covid Elevated troponin Patient denies chest pain, when pressed described chest discomfort that accompanied dyspnea on exertion. -Trended troponin: 214 <-- 295 <-- 285 <-- 264 --> then cancelled remaining trop series -Echocardiography results: - nml LV systolic function, nml LV wall motion - moderate MR noted; mild AR noted -Patient may benefit from outpatient stress testing Kidney replaced by transplant Chronic At baseline for Cr 2.9, BUN 70. hypocalcemia at 8.0, mild acidemia HCO3 19 mild anemia, Hgb 10.4 -Continue Prednisone Admission and Anticipated Discharge Date Admission Date: June 22, 2023 Supervising Physician Co-Signing Physician Notes Attending attestation Pt seen and examined in concert with Dr. Khan. In agreement with the documented findings as noted in the resident documentation with any exceptions or additions as noted here. Patient resting comfortably in bed without acute complaint at present. On examination, S1/S2 nl RRR no MCG. CTAB. Abd NT/ND BS+ve VS: 150/87, 69, 18, 36.4C, 98 RA Elevated troponin in the setting of CKD s/p renal transplant on azathioprine - troponin downtrending. Monitor on telemetry o/n and repeat EKG in AM COVID +ve - minimal symptoms at present Else see resident documentation as noted. Subjective Patient has felt increased SOB in going from car to office at work. Patient needed to get his INR tested yesterday at PCP office, it was w/in range for warfarin therapy at 2.1. Has not received COVID vacc this year; has received vaccs/boosters in past. No sick contacts or COVID illness that pt's aware of among contacts. Patient denies cough, runny nose, nasal congestion, sore throat (had these Sx at beginning 2 wks ago but they've resolved. No chest congestion, no chest pain. Only SOB w/ exertion, no orthopnea, no inc SOB at night. When pressed pt said maybe chest discomfort w/ exertion. At baseline for Cr 2.9, BUN 70. hypocalcemia at 8.0. Trops elevated 264 --> 295, then declined to 214. Review of Systems Constitutional: no fever, no chills and no body aches Ear, Nose, Mouth, Throat: no nasal congestion, no nasal discharge, no post nasal drip and no nasal obstruction Respiratory: + dyspnea on exertion; no cough and no c hest congestion Cardiovascular: + chest pain with activity (discomfort w / exertion); no radiating jaw, neck or arm pain and no palpitations Gastrointestinal: no nausea, no vomiting, no constipation and no diarrhea/loose stools Genitourinary: no dysuria or no urinary frequency Physical Exam Constitutional: WD/WN, vitals as above Respiratory: normal respiratory effort, lungs clear to auscultation Cardiovascular: RRR, no murmur, no edema Gastrointestinal (Abdomen): normal bowel sounds, soft, nontender, no hepatosplenomegaly Psychiatric: A+Ox3, euthymic affect Results & Data Results & Data Vital Signs (Past 12 Hours) Vital Signs Pulse Pulse Resp BP BP Pulse Ox O2 Del Method 06/23/23 06:00 67 104/78 96 Room Air 06/23/23 02:00 69 12 139/88 100 Room Air 06/23/23 01:00 74 14 126/82 96 Room Air 06/23/23 00:00 71 15 118/82 97 Room Air 06/22/23 23:26 98 Room Air 06/22/23 23:20 75 06/22/23 23:20 75 20 145/95 H 98 Room Air 06/22/23 22:00 82 18 152/102 H 97 Room Air 06/22/23 21:00 80 20 162/103 H 99 Room Air 06/22/23 19:18 Room Air 06/22/23 19:17 178/114 H 06/22/23 18:54 77 Resident Activity Tracking Resident Involvement: Resident Care Provided Care Provided: Adult Hospital Medicine
[2023-06-23] MEDS: PANTOprazole 40 MG TAB PO SCH (08:10)
[2023-06-23] MEDS: lisinopril 20 MG TAB PO SCH (08:10)
[2023-06-23] MEDS: predniSONE 10 MG TABLET PO SCH (08:11)
[2023-06-23] MEDS: azaTHIOprine 50 MG TAB PO SCH (08:11)
[2023-06-23 15:26] LABS: Folate (Folic Acid),Ser orPlas > 22.30 ng/ml (>5.38)
[2023-06-23 15:27] LABS: Vitamin B12 676 pg/ml (180-914)
[2023-06-23] MEDS ORDERED: WARFARIN SOD 2.5 MG TAB PO SCH (16:00)
--- NOTE | 2023-06-23 17:30 | Electrocardiogram Report ---
Test Reason : Blood Pressure : / mmHG Vent. Rate : 075 BPM Atrial Rate : 075 BPM P-R Int : 248 ms QRS Dur : 136 ms QT Int : 410 ms P-R-T Axes : -04 -33 094 degrees QTc Int : 457 ms Sinus rhythm with 1st degree A-V block Left axis deviation Right bundle branch block T wave abnormality, consider lateral ischemia Abnormal ECG When compared with ECG of 14-AUG-2015 15:24, HI interval has increased QRS axis Shifted left Nonspecific T wave abnormality now evident in Inferior leads T wave inversion now evident in Lateral leads Confirmed by Camilo Leblanc ([id number]) on 06/23/2023 5:30:09 PM Referred By: REFERRED SELF Confirmed By:Dennis Leblanc
--- NOTE | 2023-06-23 18:58 | XCELERA ---
[id number] [id number]
[2023-06-24 07:29] LABS: INR 1.8 (0.9-1.1); Prothrombin Time 19.3 Seconds (9.0-12.0)
[2023-06-24 08:28] LABS: Albumin Globulin Ratio 1.3 (0.9-2); Albumin Level 3.5 gm/dl (3.4-5.0); BUN Creatinine Ratio 21.3 (10-20); Bilirubin,Total 0.5 mg/dl (0.2-1.0); Calcium 8.2 mg/dl (8.6-10.3); Creatinine Clr Calc Pharmacy 22.9 ml/min; Est GFR (African American) 22.4 ml/min; Est GFR (Non-African American) 19.3 ml/min; Globulin 2.7 gm/dl (2.5-4.0); Potassium 4.4 mmol/L (3.5-5.1); Total Protein 6.2 gm/dl (6.0-8.3)
[2023-06-24 08:43] LABS: Basophils # (auto) 0.06 K/uL (0.00-0.20); Basophils % (auto) 0.6 %; Eosinophils # (auto) 0.37 K/uL (0.00-0.50); Eosinophils % (auto) 3.7 %; Hemoglobin 10.7 g/dl (14.0-18.0); Immature Granulocytes # (auto) 0.24 K/uL (0.01-0.20); Immature Granulocytes % (auto) 2.4 %; Lymphocytes % (auto) 17.8 %; Mean Corpuscular Hemoglobin 33.2 pg (25.0-34.0); Mean Corpuscular Hgb Conc 31.5 g/dL (32.0-36.0); Mean Corpuscular Volume 105.6 fL (80.0-100.0); Mean Platelet Volume 9.2 fL (9.4-12.4); Monocytes # (auto) 0.66 K/uL (0.11-0.59); Monocytes % (auto) 6.5 %; Neutrophils # (auto) 6.97 K/uL (1.40-6.50); Platelet Count 378 K/uL (130-400); RDW Coefficient of Variation 15.4 % (11.5-14.5); RDW Standard Deviation 60.9 fL (36.4-46.3); Red Blood Count 3.22 M/uL (4.70-6.10)
[2023-06-24] MEDS: predniSONE 10 MG TABLET PO SCH (09:44)
[2023-06-24] MEDS: azaTHIOprine 50 MG TAB PO SCH (09:44)
[2023-06-24] MEDS: PROPRANOLOL HCL LA 80 MG CAPCR PO SCH (09:44)
[2023-06-24] MEDS: lisinopril 20 MG TAB PO SCH (09:44)
[2023-06-24] MEDS: PANTOprazole 40 MG TAB PO SCH (09:45)
--- NOTE | 2023-06-24 11:39 | Discharge Summary ---
Date of Service June 24, 2023 Admission HPI Per Admitting Provider 58yo male with history of renal transplant on Prednisone, hypercoag state on Coumadin anticoagulation presenting with progressive dyspnea over the last few weeks. He reports he had a cold 2 weeks ago. He has occasional chest discomfort and sensation of heart burn and nausea after exertion - walking up two flights of stairs triggers these symptoms. He denies overt chest pain, palpitations or edema, no orthopnea or weight gain. No fever, chills, vomiting or diarrhea. Admission Exam Per Admitting Provider Physical Exam: General: patient resting comfortably, NAD, non-toxic in appearance, AA&O x 4 Skin: warm, dry, intact, no rashes or lesions HEENT: NC/AT, PERRL, EOMI, anicteric sclera, conjunctiva without injection, external ear normal to inspection and nontender, nares patent, moist mucus membranes, dentition intact, no oropharyngeal lesions, neck supple, trachea midline, no LAD, no thyromegaly, no JVD Heart: +S1/S2, regular, no m/r/g Lungs: equal air entry bilaterally, no rales/rhonchi/wheezes Abd: +BS, soft, NT/ND, no masses/organomegaly/ascites, transplant in RLQ - no tenderness Ext: warm, 2+ pulses in UE/LE bilaterally, no clubbing/cyanosis or edema Neuro: nonfocal, patient AA&O x 4, speech intact, no facial droop, moving all extremities on command with equal strength 5/5 Principal Diagnosis dyspnea on exertion, elevated troponins Discharge Exam Constitutional WD/WN, vitals as above Respiratory normal respiratory effort, lungs clear to auscultation Cardiovascular RRR, no murmur, no edema Gastrointestinal (Abdomen) normal bowel sounds, soft, nontender, no hepatosplenomegaly Psychiatric A+Ox3, euthymic affect Discharge Data Allergies Allergy/AdvReac Type Severity Reaction Status Date / Time NSAIDS (Non-Steroidal AdvReac Unknown GI bleeds Verified 06/22/23 19:55 Anti-Inflamma Consultations 06/22/23 20:33 ED Decision to Admit Stat Hospital Course (1) Elevated troponin: (2) KNOX (dyspnea on exertion): (3) CKD (chronic kidney disease): (4) Kidney replaced by transplant: Plan Shortness of breath +Covid-19 may be etiology of patient's SOB. He reports a head cold two weeks ago - this may have been the initial infection now with continued positive PCR testing? Concern also for elevated troponin and patient's report of exertional "heart burn symptoms" -Symptomatic management for Covid Elevated troponin Patient denies chest pain, when pressed described chest discomfort that accompanied dyspnea on exertion. -Trended troponin: 214 <-- 295 <-- 285 <-- 264 --> then cancelled remaining trop series -Echocardiography results: - nml LV systolic function, nml LV wall motion - moderate MR noted; mild AR noted -Patient may benefit from outpatient stress testing Kidney replaced by transplant Chronic, CKD-stage 4 At baseline for Cr 2.9, BUN 70 --> Cr 3.33 today from 2.9 yesterday, per pt he's not been hydrating well during hospital stay F/U with PCP and/or cold mill inspector 1 week post-discharge hypocalcemia at 8.0, mild acidemia HCO3 19 --> both very close to baseline values mild anemia, Hgb 10.4 -Continue Prednisone Total Time Total Time Spent Total Time Spent (In Minutes): see attending attestation Discharge Plan Discharge Items Patient Disposition: Home - Self-Care Reason For Visit: SHORTNESS OF BREATH, CHEST DISCOMFORT Discharge Diagnosis: Dyspnea on exertion, elevated troponins Activity: Resume your previous activity Non-emergency contact: Primary Care Provider and Patient Financial Services Coordinator Call non-emergency contact if: you have any medication questions and you have a fever Follow-up/Referrals: PCP,NO [Primary Care Provider] - Diet: Regular Addtl Attending Provider Instructions: You were admitted to the hospital for [_]. You were treated with [_]. A discharge summary will be sent to your primary care physician to ensure continuity of care. Please bring this discharge summary with you to your next office appointment so that your provider can review it at that time. Follow-up appointments: We have requested a follow-up appointment with your primary care physician and/or cold mill inspector within one week of discharge. Please call their office if you do not hear from them. Keep all your follow-up appointments as already scheduled. If you cannot make an appointment, notify your provider. Medications: Your medication list has been reviewed and reconciled upon discharge to ensure accuracy and continuity of care. An updated list of all your medications is included with your hospital discharge paperwork. Please review this list closely, and make note of any changes. Take your medications as instructed; do not skip a dose of your medicines. Make sure all of your doctors know every medicine you are taking (including over-the- counter medicines, vitamins, and supplements). Call your primary care provider before taking any new medicines (including sori-lxi-qsrtsze medicines, vitamins, and supplements), because some of these may interact with your current medications, or may make your symptoms worse. Tell your primary care provider if you cannot afford your medications. CONTACT YOUR PRIMARY CARE PROVIDER if you experience any of the following: increased shortness of breath or increased chest pain fever, chills, lightheadedness Difficulty following your treatment plan, or difficulty taking medications CALL 911 OR GO TO THE EMERGENCY DEPARTMENT if you experience any of the following: Sudden, severe abdominal pain or nausea/vomiting Severe chest pain, or chest pain that radiates (moves) to your jaw or arm Sudden, severe shortness of breath or difficulty breathing Thank you for allowing us to participate in your care Pending Studies at Discharge: No Stand-Alone Forms: My [facility] [employer], Smoking Cessation Medications and DC Order Prescriptions: Continued warfarin 5 mg tablet 5 mg PO DAILY Qty: 90 3RF Protocol: Dose Management Condition: Monday Dose/Route: 5 mg Instruction: 1 x 5 mg tablet Condition: Monday Dose/Route: 2.5 mg Instruction: 0.5 x 5 mg tablets Condition: Monday Dose/Route: 5 mg Instruction: 1 x 5 mg tablet Condition: Monday Dose/Route: 5 mg Instruction: 1 x 5 mg tablet Condition: Dose/Route: 5 mg Instruction: 1 x 5 mg tablet Condition: Monday Dose/Route: 2.5 mg Instruction: 0.5 x 5 mg tablets Condition: Monday Dose/Route: 5 mg Instruction: 1 x 5 mg tablet Protocol Text: Adjustment Start Date: 06/22/23 INR Value: 2.1 INR Date: 06/22/23 Recheck Date: 07/20/23 Rx Instructions: Take 2.5mg on Mon/Mon 2.5mg, and take 5mg all other days clindamycin-benzoyl peroxide 1-5 % gel 1 applic TOP BID PRN (Reason: acne) Qty: 45 3RF atorvastatin 20 mg tablet 20 mg PO QPM Qty: 90 3RF propranolol 160 mg capsule,extended release 24 hr 160 mg PO BID Qty: 180 3RF azathioprine 50 mg tablet 150 mg PO QAM Qty: 270 3RF prednisone 10 mg tablet 10 mg PO QAM Qty: 90 3RF cyanocobalamin (vitamin B-12) 1,000 mcg tablet 2,000 mcg PO DAILY folic acid 800 mcg tablet 800 mcg PO DAILY calcium carbonate [Tums] 300 mg (750 mg) Tablet,Chewable 300 mg PO BID PRN (Reason: Heartburn) lisinopril 20 mg tablet 20 mg PO QAM gemfibrozil 600 mg tablet 600 mg PO HS hydrocortisone 2.5 % cream 1 applic topical BID PRN (Reason: Skin Irritation) Rx Instructions: APPLY TOPICALLY TWICE DAILY NEEDED FOR SKIN IRRITATION calcitriol 0.25 mcg capsule 0.25 mcg PO HS Discontinued amoxicillin 500 mg tablet 2,000 mg PO ONCE Qty: 4 2RF Rx Instructions: TAKE 4 TABLETS ONE HOUR PRIOR TO DENTAL WORK Discharge Orders: Discharge Order (Routine); Ordered 06/24/23 Ordered By: Camilo Khan Admission Data Admit Date/Time: 06/22/23 20:50 Attending Provider: Camilo Chacon Admit Provider: Lisette Pham Primary Care Provider: PCP,NO Other Providers: Lisette Pham Supervising Physician Co-Signing Physician Notes Attending attestation Pt seen and examined in concert with Dr. Khan. In agreement with the documented findings as noted in the resident documentation with any exceptions or additions as noted here. Patient resting comfortably in bed without acute complaint at time of examination. On examination, S1/S2 nl RRR no MCG. CTAB. Abd NT/ND BS+ve VS: 154/89, 69, 18, 36.5C, 96 RA Data: Hgb 10.7, BUN 71, Cr 3.33 Elevated Cr in the setting of CKD s/p renal transplant remotely - patient has not been hydrating well during stay and declines monitoring at this time in favor of outpatient follow up with Dr. Noyola Elevated troponin in the setting of CKD s/p renal transplant on azathioprine - troponin downtrended COVID +ve - minimal symptoms at present Else see resident documentation as noted. Total attending physician time spent with this patient's care on the day of discharge: 35 minutes.
[2023-06-24] MEDS ORDERED: WARFARIN SOD 5 MG TAB PO SCH (16:00)
== END 2023-06-24 14:21 | disposition home or self-care (01) | DRG 178 ==
LOC: ED 15:49 → SUATTDRO 20:50 → EDINP 20:50 → 2N 06-23 01:07

== ENCOUNTER 2023-08-28 08:00 | Inpatient (IN) ==
--- OUTSIDE RECORDS SUMMARY | 2023-08-28 08:46 | External Medical Summary | Summary of Care ---
Author Name Unknown Organization [facility] Address [address] [place] [address] Phone [phone] Care Team Providers Care Special Events Fundraiser Name Role Phone Emmett Lynn MD Primary Care Provider [phone] Reason for Visit * Reason Onset Date Comments Other 08/21/2023 Encounter Details Date Type Department Care Team (Late st Contact Info) Description 08/21/2023 Telephone Pre Surgery Center, [facility] [address], [place] [id number] Pipo Meza MD [address] [place] [id number] Other Allergies Active Allergy Reactions Criticality Noted Date Comments Celecoxib Bleeding High 09/04/2013 Gi bleeding Nsaids 07/13/2022 Other Reaction(s): GI bleeds documented as of this encounter (statuses as of 08/21/2023) Medications Medication Sig Dispensed Refills Start Date End Date Status CLINDAMYCIN PHOSPHATE 1 % EX LOTN topically twice a day as needed 0 Active PROPRANOLOL HCL ER 160 MG PO CP24 Take 80 mg by mouth in the morning. 0 Active IMURAN 50 MG PO TABS three tablets daily by mouth 0 Active PREDNISONE 10 MG PO TABS one tab daily 0 Active FOLIC ACID 800 MCG PO TABS one daily by mouth 0 Active COUMADIN 1 MG PO TABS 5 mg daily by mouth , then as directed with INR due every Mon/Th 0 Active atorvaSTATin (LIPITOR) 20 MG Tablet Take 1 Tablet by mouth every night at bedtime. 0 08/22/2018 Active gemfibrozil (LOPID) 600 MG Tablet Take 1 Tablet by mouth in the morning. 0 09/20/2018 Active Ketoconazole 2 % cream Apply topically to affected area. 2 08/07/2018 Active lisinopril (PRINIVIL) 20 MG Tablet Take 1 Tablet by mouth in the morning. 0 08/01/2018 Active Clindamycin Phos-Benzoyl Perox 1.2-5 % GEL APPLY AND RUB IN A THIN FILM TO AFFECTED AREAS TWICE DAILY.(AM AND PM) 3 09/27/2018 Active vitamin b-12 (CYANOCOBALAMIN) 1000 MCG/ML injection Inject 1,000 mcg into a large muscle every 30 days. 1 mL 0 11/29/2019 Active hydrocortisone (ANUSOL-HC) 2.5 % Administer into the rectum 2 times a day. 30 g 0 01/21/2020 Active Additional Information Patient not taking.Reported on 03/07/2023 predniSONE 10 MG Oral Tablet (Deltasone) TAKE ONE TABLET BY MOUTH EVERY DAY IN THE MORNING 90 Tablet 3 10/18/2022 10/18/2023 Active Calcitriol 0.25 MCG Oral Capsule (Rocaltrol) .MWF 0 01/05/2023 Active amLODIPine Besylate 5 MG Oral Tablet (Norvasc) 1 Tablet. 0 07/31/2023 Active documented as of this encounter (statuses as of 08/21/2023) Active Problems Problem Noted Date Diagnosed Date Primary hypercoagulable state 09/04/2013 documented as of this encounter (statuses as of 08/21/2023) Social History Tobacco Use Types Packs/Day Years Used Date Smoking Tobacco: Never Smokeless Tobacco: Never Alcohol Use Standard Drinks/Week Comments No 0 (1 standard drink = 0.6 oz pur e alcohol) Sex and Gender Information Value Date Recorded Sex Assigned at Not on file Gender Identity Not on file Sexual Orientation Not on file Job Start Date Occupation Industry Not on file Not on file Not on file documented as of this encounter Miscellaneous Notes * Telephone Encounter - Trinidad Mendoza LPN - 08/21/2023 3:29 PM EST Called patient. Patient as seen unix engineer last week, Trell Moore PA-C for the abnormal EKG. He did have a echo stress test and was informed that he needed to have a nuclear stress test done. He isawaiting to be scheduled. He will notify his unix engineer that he needs written documentation of clearance for his surgery. The patient will be calling the office on next week to give us an update. * Telephone Encounter - Ramona Joya RN - 08/21/2023 9:15 AM EST Patient's pre op EKG is below: 08/10/2023 EKG: REASON FOR STUDY: pre op CONCLUSIONS: Sinus rhythm with 1st degree AV block Nonspecific intraventricular conduction block Incomplete right bundle branch block Marked ST depression consider anterolateral ischemia Abnormal ECG No previous ECGs available [place] text sent to anesthesiologist, Dr. Ha, to take a look at pt's pre-op EKG. Per Dr. Ha, "He has evidence of possible anterolateral ischemia. He should be seen and evaluatedby cardiology preop to determine whether he is symptomatic and if he needs to be treated. They needto provide preoperative clearance. There is no urgency to hemorrhoid procedure." If your office could set him up for Cardiology clearance prior to his surgery on 09/01/2023. Thanks. documented in this encounter Plan of Treatment Upcoming Encounters Date Type Department Care Team (Latest Contact Info) Description 09/01/2023 3:22 PM EST Hospital Encounter OR [facility], Operating Room, [facility] - 4th Floor [address] [place] [address] Pipo Meza MD [address] [place] [address] 09/01/2023 3:22 PM EST - 09/01/2023 4:45 PM EST Surgery OR [facility], Operating Room, [facility] - 4th Floor [address] [facility] [place] [address] Pipo Meza MD [address] [place] [address] [phone] ANORECTAL EXAM UNDER ANESTHESIA 09/04/2023 9:00 AM EST Scheduled Telephone General Surgery Victor Manuel Watson [address] [facility] [address] [place] [address] Victor Manuel Nurse Gen Surg Perri Ponce RN [address] [facility] [address] [place] [address] 09/15/2023 10:00 AM EST Office Visit General Surgery Victor Manuel [address] [place] [address] Pipo Meza MD [address] [place] [address] [phone] Scheduled Procedures Name Priority Associated Diagnoses Date/Ti me ANORECTAL EXAM UNDER ANESTHESIA Bleeding hemorrhoid 09/01/2023 3:22 PM EST HEMORRHOIDECTOMY EXTERNAL AN D INTERNAL SIMPLE Bleeding hemorrhoid 09/01/2023 3:22 PM EST Health Maintenance Due Date Last Done Comments Hepatitis B (1 of 3 - 3-dose series) 1965 Lipid Panel 1965 Pneumococcal Vaccine: Pediatrics (0 to 5 Years) and At-Risk Patients (6 to 64 Years) (1 - PCV) 1971 Depression Screening 1977 HIV Screening 02/06/1980 Hepatitis C Screening 1983 DTaP,Tdap,and Td Vaccines (1 - Tdap) 02/06/1984 Zoster Vaccines (1 of 2) 02/06/1984 Cologuard 2010 Colonoscopy 2010 Colorectal Cancer Screening 2010 Fecal Occult Blood Test 2010 Sigmoidoscopy 2010 COVID-19 Vaccine ( season) 2023 04/29/2022, 07/22/2021, 09/30/2020, Additional history exists Diabetes Screening 08/10/2026 08/10/2023 Influenza Vaccine (FLU shot) Completed , 07/13/2022, 06/25/2021, Additional history exists GARDASIL-HPV IMMUNIZATION SERIES Aged Out No longer eligible based on patient's age to complete this topic MENINGOCOCCAL (MENACTRA/MENVEO) Aged Out No longer eligible based on patient's age to complete this topic documented as of this encounter Medical Devices Not on filedocumented as of this encounter Care Teams Special Events Fundraiser Relationship Specialty Start Date End Date Emmett Lynn MD [address] [place] [address] PCP - General 07/24/02 documented as of this encounter
--- NOTE | 2023-08-28 08:47 | Emergency Department Note ---
History of Present Illness General Chief complaint: Shortness of Breath/Dyspnea Stated complaint: SOB, LIGHTHEADED, DIARRHEA, LOW BP Time Seen by Provider: 08/28/23 08:11 History of Present Illness Maximum Pain Intensity: 0 Home Medications Medication Instructions Recorded Confirmed Type folic acid 800 mcg tablet 800 mcg PO DAILY 10/25/19 08/28/23 History calcium carbonate 300 mg (750 mg) 300 mg PO BID PRN Heartburn 01/01/20 08/28/23 History chewable tablet (Tums) clindamycin 1 %-benzoyl peroxide 5 1 applic topical BID PRN acne #45 07/08/22 08/28/23 Rx % topical gel grams cyanocobalamin (vitamin B-12) 2,000 mcg PO DAILY 01/12/23 08/28/23 History 1,000 mcg tablet azathioprine 50 mg tablet 150 mg (3 x 50 mg) PO QAM #270 tabs 03/09/23 08/28/23 Rx prednisone 10 mg tablet 10 mg PO QAM #90 tabs 04/28/23 08/28/23 Rx gemfibrozil 600 mg tablet 600 mg PO HS 06/22/23 08/28/23 History calcitriol 0.25 mcg capsule 0.25 mcg PO HS #90 caps 06/29/23 08/28/23 Rx atorvastatin 20 mg tablet 20 mg PO QPM #90 tabs 07/05/23 08/28/23 Rx warfarin 5 mg tablet 5 mg PO DAILY #90 tabs 07/05/23 08/28/23 Rx amlodipine 5 mg tablet 5 mg PO DAILY #90 tabs 07/31/23 08/28/23 Rx lisinopril 20 mg tablet 20 mg PO QAM #90 tabs 07/31/23 08/28/23 Rx propranolol 80 mg capsule,24 80 mg PO DAILY #90 caps 07/31/23 08/28/23 Rx hr,extended release Allergies Allergy/AdvReac Type Severity Reaction Status Date / Time NSAIDS (Non-Steroidal AdvReac Unknown GI bleeds Verified 08/16/23 09:56 Anti-Inflamma Past Med/Surg History Medical History Blood clotting disorder pt unable to specify -- dx after DVT LLE > 5 years ago - on warfarin Chronic steroid use Gout Osteoarthritis History of renal dialysis prior to transplant History of GI bleed GERD (gastroesophageal reflux disease) TUMS prn History of DVT (deep vein thrombosis) LLE - > 5 years ago - clotting disorder - on warfarin Anemia due to chronic kidney disease Anticoagulant long-term use Gout Hypercholesterolemia Hypertension Immunosuppressed status 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 Helper Required: No Beliefs That Will Affect Care: None Current Living Situation: Spouse Current Living Situation Comment: home with current occupational status: employed Feels Safe at Home: Yes Assistive Devices: None Review of Systems A total of 10 systems reviewed and were otherwise negative Cardiovascular: + dyspnea; no chest pain and no palpitations Gastrointestinal: no abdominal pain Physical Exam Vital Signs Vital Signs - 24 hr 08/28/23 08:06 08/28/23 08:22 08/28/23 08:27 Temperature 36.7 C Temperature Source Temporal Artery Scan Pulse Rate 45 L 43 L 43 L Pulse Rate from SpO2 Sensor Pulse Rhythm Regular Respiratory Rate 16 22 22 Respiratory Effort / Characteristics Non-Labored Respiratory Depth Normal Respiratory Pattern Blood Pressure 135/75 178/87 H Blood Pressure Mean 95 117 Pulse Oximetry 100 100 100 Oxygen Delivery Method Room Air Room Air Room Air Sepsis Recent Fever Within 48 Hours No Sepsis New/Unexplained Change in Mental Status N/A Sepsis Action Taken by Nursing No Action Required 08/28/23 08:29 08/28/23 08:29 08/28/23 08:31 Temperature Temperature Source Pulse Rate 42 L Pulse Rate from SpO2 Sensor Pulse Rhythm Respiratory Rate 20 Respiratory Effort / Characteristics Non-Labored Spontaneous SOB on Exertion Respiratory Depth Normal Respiratory Pattern Regular Blood Pressure 166/83 H Blood Pressure Mean 110 Pulse Oximetry 100 100 Oxygen Delivery Method Room Air Room Air Room Air Sepsis Recent Fever Within 48 Hours Sepsis New/Unexplained Change in Mental Status Sepsis Action Taken by Nursing 08/28/23 08:51 08/28/23 09:00 08/28/23 09:30 Temperature Temperature Source Pulse Rate 43 L 41 L 42 L Pulse Rate from SpO2 Sensor 41 L 42 L Pulse Rhythm Respiratory Rate 22 24 Respiratory Effort / Characteristics Respiratory Depth Respiratory Pattern Blood Pressure 144/71 H 147/80 H Blood Pressure Mean 95 102 Pulse Oximetry 98 98 Oxygen Delivery Method Room Air Room Air Sepsis Recent Fever Within 48 Hours Sepsis New/Unexplained Change in Mental Status Sepsis Action Taken by Nursing 08/28/23 10:00 08/28/23 10:31 08/28/23 11:00 Temperature Temperature Source Pulse Rate 42 L 41 L 42 L Pulse Rate from SpO2 Sensor 42 L 42 L Pulse Rhythm Respiratory Rate 22 20 18 Respiratory Effort / Characteristics Respiratory Depth Respiratory Pattern Blood Pressure 155/79 H 134/66 Blood Pressure Mean 104 88 Pulse Oximetry 99 99 98 Oxygen Delivery Method Room Air Room Air Sepsis Recent Fever Within 48 Hours Sepsis New/Unexplained Change in Mental Status Sepsis Action Taken by Nursing 08/28/23 11:00 08/28/23 11:30 08/28/23 11:31 Temperature Temperature Source Pulse Rate 41 L 42 L Pulse Rate from SpO2 Sensor 42 L 42 L Pulse Rhythm Respiratory Rate 18 18 Respiratory Effort / Characteristics Respiratory Depth Respiratory Pattern Blood Pressure 135/73 Blood Pressure Mean 91 Pulse Oximetry 98 99 Oxygen Delivery Method Sepsis Recent Fever Within 48 Hours Sepsis New/Unexplained Change in Mental Status Sepsis Action Taken by Nursing 08/28/23 11:31 08/28/23 12:00 08/28/23 12:02 Temperature Temperature Source Pulse Rate 40 L Pulse Rate from SpO2 Sensor 40 L Pulse Rhythm Respiratory Rate 20 Respiratory Effort / Characteristics Respiratory Depth Respiratory Pattern Blood Pressure 147/76 H 134/79 Blood Pressure Mean 107 102 Pulse Oximetry 97 Oxygen Delivery Method Sepsis Recent Fever Within 48 Hours Sepsis New/Unexplained Change in Mental Status Sepsis Action Taken by Nursing 08/28/23 12:02 Temperature Temperature Source Pulse Rate 41 L Pulse Rate from SpO2 Sensor Pulse Rhythm Respiratory Rate 18 Respiratory Effort / Characteristics Respiratory Depth Respiratory Pattern Blood Pressure Blood Pressure Mean Pulse Oximetry 98 Oxygen Delivery Method Sepsis Recent Fever Within 48 Hours Sepsis New/Unexplained Change in Mental Status Sepsis Action Taken by Nursing GENERAL: Patient is awake alert in no acute distress patient is resting comfortably and showing no signs of anxiety EYES: The conjunctivae are clear. The pupils are round and reactive. EARS, NOSE, MOUTH AND THROAT: The nose is without any evidence of any deformity. Mucous membranes are moist. Tongue is midline. NECK: The neck is nontender and supple. RESPIRATORY: Normal respiratory effort is noted there is no evidence of wheezing rhonchi or rales CARDIOVASCULAR: Bradycardic rate and regular rhythm noted there no murmurs rubs or gallops normal S1 normal S2. GASTROINTESTINAL: The abdomen is soft. Abdomen is nontender. BACK: No midline tenderness or or step-off noted range of motion in flexion extension as well as rotation no signs of muscle spasm noted MUSCULOSKELETAL/EXTREMITIES: There is no evidence of gross deformity full range of motion is noted in the hips and shoulders. SKIN: There is no obvious evidence of any rash. There are no petechiae, pallor or cyanosis noted. NEUROLOGIC: Patient is awake alert and oriented x3 strength is symmetric Course Reevaluation(s) Reevaluation #1: Patient is resting in no distress heart rate is 44 blood pressure is greater than 120 systolic. I discussed the evaluation with the patient. He does relate having diarrhea for the past 3 days as well. No current chest pain, dizziness, or shortness of breath Time: 09:42 Consultations Consultation #1: Case was discussed with the [facility] hospitalist for admission Time: 09:43 Administered Medications Magnesium Sulfate/Dextrose (Magnesium Sulfate / D5w) 1 gm in 100 mls @ 50 mls/hr IV ONE ONE Stop: 08/28/23 12:43 Last Admin: 08/28/23 10:49 Dose: 50 mls/hr Documented By: LEE Heparin Sodium/Dextrose (Heparin Sodium/Dextrose) 25,000 units in 500 mls @ 16 mls/hr IV .Q24H [facility]; Protocol Stop: 09/27/23 11:29 Last Admin: 08/28/23 11:42 Dose: 800 units/hr, 16 mls/hr Documented By: SOLEDAD Co-signed By: MES Discontinued Medications Piperacillin Sod/Tazobactam Sod (Zosyn) 4.5 gm in 100 mls @ 200 mls/hr IV NOW ONE Stop: 08/28/23 09:54 Last Infusion: 08/28/23 10:29 Dose: Infused Documented By: Admin: 08/28/23 09:59 Dose: 200 mls/hr Documented By: LEE Sodium Chloride (Nss) 1,000 mls @ 999 mls/hr IV .Q1H1M ONE Stop: 08/28/23 10:29 Last Admin: 08/28/23 09:59 Dose: 500 mls/hr Documented By: LEE Magnesium Sulfate/Dextrose (Magnesium Sulfate 1gm / D5w Bag) Confirm Administered Dose 1 gm IV .STK-MED ONE Stop: 08/28/23 10:48 Last Admin: 08/28/23 10:49 Dose: Not Given Documented By: LEE Critical Care Time Critical Care Time: Yes Total Critical Care Time: 45 I have personally spent greater than 45 minutes of critical care time in the direct management of this patient. This includes bedside care, interpretation of diagnostic studies, and testing, discussion with consultants, patient, and family members, and other required patient management activities. These minutes are in excess of all separately billable procedures. Medical Decision Making Medical Records Attestation: I reviewed the patient's medical records. Home Medications Current Medication List: was personally reviewed by me Laboratory Data Attestation: I reviewed the patient's lab results. Patient has an elevated white blood cell count, elevated potassium, low bicarb, elevated BUN and elevated creatinine 08/28/23 08:21 08/28/23 08:21 Lab Results 08/28/23 08/28/23 08/28/23 Range/Units 08:20 08:21 09:26 WBC 12.09 H (4.8-10.8) K/ul RBC 2.70 L (4.70-6.10) M/uL Hgb 9.2 L (14.0-18.0) g/dl Hct 29.1 L (42.0-52.0) % MCV 107.8 H (80.0-100.0) fL MCH 34.1 H (25.0-34.0) pg MCHC 31.6 L (32.0-36.0) g/dL RDW Std Deviation 61.5 H (36.4-46.3) fL RDW Coeff of Zeus 15.5 H (11.5-14.5) % Plt Count 432 H (130-400) K/uL MPV 9.8 (9.4-12.4) fL Immature Gran % (Auto) 2.2 % Neut % (Auto) 78.3 % Lymph % (Auto) 11.7 % [place] % (Auto) 6.3 % Eos % (Auto) 1.2 % Baso % (Auto) 0.3 % Neut # (Auto) 9.46 H (1.40-6.50) K/uL Lymph # (Auto) 1.42 (1.20-3.40) K/uL [place] # (Auto) 0.76 H (0.11-0.59) K/uL Eos # (Auto) 0.15 (0.00-0.50) K/uL Baso # (Auto) 0.04 (0.00-0.20) K/uL Immature Gran # (Auto) 0.26 H (0.01-0.20) K/uL Absolute Nucleated RBC 0.02 (0.00-0.12) K/uL Nucleated RBC % (auto) 0.2 % PT 19.1 H (9.0-12.0) Seconds INR 1.8 H (0.9-1.1) APTT 33 H (21-31) Seconds PTT Ratio 1.2 Sodium 137 (136-145) mmol/L Potassium 5.2 H (3.5-5.1) mmol/L Chloride 107 (98-107) mmol/L Carbon Dioxide 13 L (21-32) mmol/L Anion Gap 17 H (3-11) BUN 146 H (6-23) mg/dl Creatinine 4.79 H* (0.6-1.4) mg/dl Est Cr Clr Drug Dosing 16.2 ml/min Est GFR ( Amer) 14.4 ml/min Est GFR (Non-Af Amer) 12.4 ml/min BUN/Creatinine Ratio 30.5 H (10-20) Glucose 129 H (70-99(Fasting)) mg/dl Lactate (0.4-2.0) mmol/L Calcium 8.5 L (8.6-10.3) mg/dl Magnesium 1.8 (1.7-2.4) mg/dl Total Bilirubin 0.3 (0.2-1.0) mg/dl Direct Bilirubin 0.1 (0-0.2) mg/dl AST 27 (13-39) U/L ALT 15 (7-52) U/L Alkaline Phosphatase 55 (34-104) U/L Troponin I High Sens 12232.8 H* (0-20) pg/ml Total Protein 6.8 (6.0-8.3) gm/dl Albumin 3.9 (3.4-5.0) gm/dl Procalcitonin Cancelled 0.09 Urine Color Yellow Urine Appearance Clear (Clear) Urine pH 5.5 (4.5-7.5) Ur Specific [place] 1.015 (1.000-1.030) Urine Protein 2+ H (Negative) Urine Glucose (UA) Negative (Negative) Urine Ketones Negative (Negative) Urine Blood Negative (Negative) Urine Nitrite Negative (Negative) Urine Bilirubin Negative (Negative) Urine Urobilinogen Negative (Negative) Ur Leukocyte Esterase Negative (Negative) Urine RBC 0-4 (0-4) /hpf Urine WBC 0-5 (0-5) /hpf Ur Epithelial Cells 0-5 (0-5) /lpf Urine Bacteria Negative (Negative) SARS-CoV-2 (PCR) NEGATIVE (Negative) Influenza Type A (PCR) Negative (Neg) Influenza Type B (PCR) Negative (Neg) RSV (RT-PCR) Negative (Neg) 08/28/23 Range/Units 09:28 WBC (4.8-10.8) K/ul RBC (4.70-6.10) M/uL Hgb (14.0-18.0) g/dl Hct (42.0-52.0) % MCV (80.0-100.0) fL MCH (25.0-34.0) pg MCHC (32.0-36.0) g/dL RDW Std Deviation (36.4-46.3) fL RDW Coeff of Zeus (11.5-14.5) % Plt Count (130-400) K/uL MPV (9.4-12.4) fL Immature Gran % (Auto) % Neut % (Auto) % Lymph % (Auto) % [place] % (Auto) % Eos % (Auto) % Baso % (Auto) % Neut # (Auto) (1.40-6.50) K/uL Lymph # (Auto) (1.20-3.40) K/uL [place] # (Auto) (0.11-0.59) K/uL Eos # (Auto) (0.00-0.50) K/uL Baso # (Auto) (0.00-0.20) K/uL Immature Gran # (Auto) (0.01-0.20) K/uL Absolute Nucleated RBC (0.00-0.12) K/uL Nucleated RBC % (auto) % PT (9.0-12.0) Seconds INR (0.9-1.1) APTT (21-31) Seconds PTT Ratio Sodium (136-145) mmol/L Potassium (3.5-5.1) mmol/L Chloride (98-107) mmol/L Carbon Dioxide (21-32) mmol/L Anion Gap (3-11) BUN (6-23) mg/dl Creatinine (0.6-1.4) mg/dl Est Cr Clr Drug Dosing ml/min Est GFR ( Amer) ml/min Est GFR (Non-Af Amer) ml/min BUN/Creatinine Ratio (10-20) Glucose (70-99(Fasting)) mg/dl Lactate 1.6 (0.4-2.0) mmol/L Calcium (8.6-10.3) mg/dl Magnesium (1.7-2.4) mg/dl Total Bilirubin (0.2-1.0) mg/dl Direct Bilirubin (0-0.2) mg/dl AST (13-39) U/L ALT (7-52) U/L Alkaline Phosphatase (34-104) U/L Troponin I High Sens (0-20) pg/ml Total Protein (6.0-8.3) gm/dl Albumin (3.4-5.0) gm/dl Procalcitonin Urine Color Urine Appearance (Clear) Urine pH (4.5-7.5) Ur Specific [place] (1.000-1.030) Urine Protein (Negative) Urine Glucose (UA) (Negative) Urine Ketones (Negative) Urine Blood (Negative) Urine Nitrite (Negative) Urine Bilirubin (Negative) Urine Urobilinogen (Negative) Ur Leukocyte Esterase (Negative) Urine RBC (0-4) /hpf Urine WBC (0-5) /hpf Ur Epithelial Cells (0-5) /lpf Urine Bacteria (Negative) SARS-CoV-2 (PCR) (Negative) Influenza Type A (PCR) (Neg) Influenza Type B (PCR) (Neg) RSV (RT-PCR) (Neg) Imaging Data Attestation: I personally reviewed and interpreted this imaging study as follows: My Impression: Chest x-ray interpreted by me cardiomegaly, right lower lobe infiltrate Radiologist's Impression: Chest X-Ray 08/28/23 08:11 XR chest 1V portable HISTORY: 58 years-old Male Sepsis acute sepsis COMPARISON: 06/22/2023 TECHNIQUE: AP view of the chest FINDINGS: Cardiac silhouette is enlarged. Asymmetric right hilar prominence. Right infrahilar and bibasilar airspace opacities. Pulmonary vascular congestion. No pneumothorax. Probable trace pleural effusions. Bones appear grossly intact with degenerative changes of the shoulders and spine. A peripherally calcified vascular structure is again noted within the left axilla measuring 3.1 cm transversely. IMPRESSION: 1. Cardiomegaly with pulmonary vascular congestion. 2. Bibasilar and right perihilar opacities are suggestive of multifocal pneumonia. Follow-up imaging in order to document resolution is recommended. 3. Probable trace pleural effusions. ACT 112: Negative or not required by law. The above report was generated using voice recognition software. It may contain grammatical, syntax or spelling errors. Electronically signed by: Mehdi Kiser M.D. 08/28/2023 9:17 AM ECG Data Attestation: I personally reviewed and interpreted this ECG as follows: Additional Comments: EKG interpreted by me sinus bradycardia with first-degree AV block rate of 45 left ventricular hypertrophy age-indeterminate inferior wall DC nonspecific ST-T change, in comparison to an EKG of June 22, 2023 the rate has changed from 82-45 EKG from today was also compared to EKG from August 10, 2023 in which the patient had ST segment elevation in 3 and aVF with depression in 1 and aVL that is essentially unchanged in today's EKG Telemetry was ordered by me, interpreted as sinus bradycardia rate of 42 MDM Narrative Medical decision making differential diagnosis includes symptomatic bradycardia, electrolyte abnormality, cardiac dysrhythmia, overmedicated with beta-macy, CHF, acute coronary syndrome Plan is to check labs, EKG, chest x-ray I have reviewed the patient's stress echo of June 2023, patient did not achieve maximal heart rate due to propranolol I have also reviewed the nephrology note of July 31, [address] Noyola -in which the patient had a prior renal transplant and was not 100% sold on going back on dialysis in the future Patient was started on IV saline, IV Zosyn, patient did describe to me that he had diarrhea in the past 3 days he may be significantly dry. A 1 L bolus was given to the patient. Patient also may be over medicated with a beta-macy; patient has no current chest pain patient's EKG is unchanged from August 10, 2023 in which the patient had ST segment elevation in 3 and aVF as well as reciprocal changes in 1 and aVL. Patient has no current chest pain or symptoms to suggest acute DC; patient however does have an elevated troponin has an elevated creatinine worse than baseline has a history of diarrhea for the past 4 days and may be dehydrated. Patient is on Coumadin and has an INR of 1.8 Plan is to admit to the hospitalist, case was discussed with the [facility] hospitalist for admission Impression & Plan ACS (acute coronary syndrome), Acute renal failure, Pneumonia, Anemia, Acidosis Discharge Plan Visit Data Chief Complaint: Shortness of Breath/Dyspnea Stated Complaint: SOB, LIGHTHEADED, DIARRHEA, LOW BP ED Provider: Jae Sheridan Discharge Problem: ACS (acute coronary syndrome), Acute renal failure, Pneumonia, Anemia, Acidosis Patient Disposition: Admitted As Inpatient Forms Stand Alone Forms: My [facility] [employer] Prescriptions Prescriptions: No Action clindamycin-benzoyl peroxide 1-5 % gel 1 applic TOP BID PRN (Reason: acne) Qty: 45 3RF azathioprine 50 mg tablet 150 mg PO QAM Qty: 270 3RF prednisone 10 mg tablet 10 mg PO QAM Qty: 90 3RF calcitriol 0.25 mcg capsule 0.25 mcg PO HS Qty: 90 3RF atorvastatin 20 mg tablet 20 mg PO QPM Qty: 90 3RF warfarin 5 mg tablet 5 mg PO DAILY Qty: 90 3RF Protocol: Dose Management Condition: Monday Dose/Route: 5 mg Instruction: 1 x 5 mg tablet Condition: Monday Dose/Route: 2.5 mg Instruction: 0.5 x 5 mg tablets Condition: Monday Dose/Route: 5 mg Instruction: 1 x 5 mg tablet Condition: Monday Dose/Route: 5 mg Instruction: 1 x 5 mg tablet Condition: Dose/Route: 5 mg Instruction: 1 x 5 mg tablet Condition: Monday Dose/Route: 2.5 mg Instruction: 0.5 x 5 mg tablets Condition: Monday Dose/Route: 5 mg Instruction: 1 x 5 mg tablet Protocol Text: Adjustment Start Date: Monday07/28/23 INR Value: 2.8 INR Date: 07/28/23 Recheck Date: 08/25/23 Rx Instructions: Take 2.5mg on Mon/Mon 2.5mg, and take 5mg all other days cyanocobalamin (vitamin B-12) 1,000 mcg tablet 2,000 mcg PO DAILY amlodipine 5 mg tablet 5 mg PO DAILY Qty: 90 3RF propranolol 80 mg capsule,extended release 24 hr 80 mg PO DAILY Qty: 90 3RF Hold Instructions: Home Medication placed on hold at Doctor's office lisinopril 20 mg tablet 20 mg PO QAM Qty: 90 0RF folic acid 800 mcg tablet 800 mcg PO DAILY calcium carbonate [Tums] 300 mg (750 mg) Tablet,Chewable 300 mg PO BID PRN (Reason: Heartburn) gemfibrozil 600 mg tablet 600 mg PO HS Referrals Referrals: Jorge Luis Noyola DO [Primary Care Provider] -
[2023-08-28 08:49] LABS: Basophils # (auto) 0.04 K/uL (0.00-0.20); Basophils % (auto) 0.3 %; Eosinophils # (auto) 0.15 K/uL (0.00-0.50); Eosinophils % (auto) 1.2 %; Hematocrit (blood only) 29.1 % (42.0-52.0); Hemoglobin 9.2 g/dl (14.0-18.0); Immature Granulocytes # (auto) 0.26 K/uL (0.01-0.20); Immature Granulocytes % (auto) 2.2 %; Lymphocytes # (auto) 1.42 K/uL (1.20-3.40); Lymphocytes % (auto) 11.7 %; Mean Corpuscular Hemoglobin 34.1 pg (25.0-34.0); Mean Corpuscular Hgb Conc 31.6 g/dL (32.0-36.0); Mean Corpuscular Volume 107.8 fL (80.0-100.0); Mean Platelet Volume 9.8 fL (9.4-12.4); Monocytes # (auto) 0.76 K/uL (0.11-0.59); Monocytes % (auto) 6.3 %; Neutrophils # (auto) 9.46 K/uL (1.40-6.50); Neutrophils % (auto) 78.3 %; Nucleated RBC # (auto) 0.02 K/uL (0.00-0.12); Nucleated RBC % (auto) 0.2 %; Platelet Count 432 K/uL (130-400); RDW Coefficient of Variation 15.5 % (11.5-14.5); RDW Standard Deviation 61.5 fL (36.4-46.3); White Blood Count 12.09 K/ul (4.8-10.8)
[2023-08-28 08:54] LABS: Appearance Urine Clear (Clear); Bilirubin Urine Negative (Negative); Blood Urine Negative (Negative); Color Urine Yellow; Glucose Urine UA Negative (Negative); Ketones Urine Negative (Negative); Leukocyte Esterase Urine Negative (Negative); Nitrite Urine Negative (Negative); Protein Urine 2+ (Negative); Specific Gravity Urine 1.015 (1.000-1.030); Urobilinogen Urine Negative (Negative); pH Urine 5.5 (4.5-7.5)
[2023-08-28 09:04] LABS: Bilirubin Direct 0.1 mg/dl (0-0.2)
[2023-08-28 09:09] LABS: Epithelial Cell Urine 0-5 /lpf (0-5)
[2023-08-28 09:10] LABS: RBC Urine 0-4 /hpf (0-4)
[2023-08-28 09:11] LABS: Bacteria Urine Negative (Negative); WBC Urine 0-5 /hpf (0-5)
[2023-08-28 09:15] LABS: INR 1.8 (0.9-1.1); Partial Thromboplastin Ratio 1.2; Partial Thromboplastin Time 33 Seconds (21-31); Prothrombin Time 19.1 Seconds (9.0-12.0)
[2023-08-28 09:20] LABS: Albumin Level 3.9 gm/dl (3.4-5.0); BUN Creatinine Ratio 30.5 (10-20); Bilirubin,Total 0.3 mg/dl (0.2-1.0); Calcium 8.5 mg/dl (8.6-10.3); Creatinine Clr Calc Pharmacy 16.2 ml/min; Est GFR (African American) 14.4 ml/min; Est GFR (Non-African American) 12.4 ml/min; Magnesium 1.8 mg/dl (1.7-2.4); Potassium 5.2 mmol/L (3.5-5.1); Total Protein 6.8 gm/dl (6.0-8.3); Troponin I High Sensitivity 10072.8 pg/ml (0-20)
--- NOTE | 2023-08-28 09:20 | XRay Report ---
XR chest 1V portable HISTORY: 58 years-old Male Sepsis acute sepsis COMPARISON: 06/22/2023 TECHNIQUE: AP view of the chest FINDINGS: Cardiac silhouette is enlarged. Asymmetric right hilar prominence. Right infrahilar and bibasilar air space opacities. Pulmonary vascular congestion. No pneumothorax. Probable trace pleural effusions. Sarthak michelle appear grossly intact with degenerative changes of the shoulders and spine. A peripherally calcif ied vascular structure is again noted within the left axilla measuring 3.1 cm transversely. IMPRESSION: 1. Cardiomegaly with pulmonary vascular congestion. 2. Bibasilar and right perihilar opacities are suggestive of multifocal pneumonia. Follow-up imaging in order to document resolution is recommended. 3. Probable trace pleural effusions. ACT 112: Negative or not required by law. The above report was generated using voice recognition software. It may contain grammatical, syntax o r spelling errors. Electronically signed by: Mehdi Kiser M.D. 08/28/2023 9:17 AM
[2023-08-28 09:24] LABS: Influenza A virus by PCR Negative (Neg); Influenza B virus by PCR Negative (Neg); RSV by PCR Negative (Neg); SARS CoV2 RNA(COVID-19) Ceph NEGATIVE (Negative)
--- NOTE | 2023-08-28 09:42 | History & Physical Report ---
Date of Service August 28, 2023 Assessment & Plan (1) Multifocal pneumonia: Plan: SOB, diarrhea, fatigue starting on 08/24 Leukocytosis at 12.09 with neutrophil predominance; afebrile Note: patient is on immunosuppressive therapy with azathioprine Procalcitonin WNL COVID, RSV, flu negative CXR revealed multifocal pneumonia Blood cultures drawn, pending MRSA swab ordered, pending No prior microbiology available Zosyn 4.5mg IV q12h Doxycycline 100 mg IV BID Promote good pulmonary hygiene with incentive spirometry and flutter valve Supplemental oxygen as needed to maintain SpO2 >94% Monitor for third spacing A.m. CBC, BMP, mag, PT/INR (2) Type 2 DC (myocardial infarction): Plan: Clinically, patient denies chest pain, left arm pain, and left jaw pain/pressure Bradycardia in the 35-45bpm range Troponin grossly elevated at 10,072.9-->9,733.0 on arrival Trend troponin q6h x 3 EKG revealed sinus bradycardia with first-degree AV block at 45 bpm; QTc 380 Inferior infarct now present when compared to EKG on 06/22/2023 EKG on 06/22/2023 revealed sinus rhythm with first-degree AV block at 75 bpm; QTc 457; notable decrease in heart rate since that time ?Chronic ST elevations in leads II, III, aVF Stat cardiology consult Per cardiology: patient will require a catheterization, however he does not need emergency catheterization as he is not currently having chest pain Cath scheduled for 08/30 While ACS was in the initial differential, this elevated troponin likely represents severe demand ischemia rather than plaque rupture and thus is better characterized as a type II DC Dobutamine stress test on 07/04/2023 revealed markedly blunted HR dobutamine/atropine There was no EKG or echo evidence of DC at 62% maximum predicted heart rate Last echo on 06/23/2023 revealed LVEF at 60 to 65% Stat echocardiogram ordered, pending Heparin low-dose without bolus started in the ED CXR also revealed cardiomegaly with pulmonary vascular congestion and trace pleural effusions BNP markedly elevated at 4669 Continuous telemetry monitoring EKG as needed for chest pain Communication order placed: Please notify provider immediately of any chest pain (3) Kidney replaced by transplant: Plan: Hx of renal transplant in 1979 Continue prednisone Per nephrology, okay to continue azathioprine (4) Acute kidney injury superimposed on chronic kidney disease: Plan: Per patient, poor oral intake and GI losses since 08/24 BUN 146, creatinine 4.79 (baseline 2.9), EGFR 12.4 K 5.2-->4.9 on arrival Anion gap elevated at 17 on arrival ?Intravascular depletion due to poor oral intake vs cardiogenic Avoid nephrotoxic agents Hold lisinopril Will provide patient with small boluses of 500 mL of IVF at this time and trend BMP Nephrology consulted (5) Anemia: Plan: Hgb 9.2 and HCT 29.1 on arrival; may be secondary to acute on chronic CKD No signs of active bleeding Clinically, patient endorses some dizziness with standing In the setting of type II DC, transfuse to hemoglobin target >8 g/dL Hx of blood transfusion approximately 10 years ago H&H recheck ordered Type and screen ordered, pending Blood informed consent obtained 2 units PRBCs ordered; hold for now Continue to monitor a.m. labs (6) Bradycardia: Plan: Patient remains bradycardic despite GI losses; ?lack of compensation If patient becomes symptomatic, recommend atropine, transcutaneous pacing, or dopamine if necessary Atropine 1.0mg IV q5m x 3 max doses as needed for symptomatic bradycardia Communication order: Place transcutaneous pacer at bedside (7) History of DVT (deep vein thrombosis): Plan: Patient normally takes warfarin; PT/INR supratherapeutic on arrival (INR 1.8) Hold warfarin Heparin low-dose without bolus started in the ED Repeat a.m. PT/INR (8) Hypertension: Plan: Propranolol was decreased from 160mg BID --> 80mg daily approximately 1.5 months ago Despite this, patient is still exhibiting bradycardia on arrival Hold all BP medications for now (9) Hypercholesterolemia: Plan: Continue atorvastatin Hold gemfibrozil due to kidney function (10) 1st degree AV block: Plan: Chronic; noted (11) Immunosuppressed status: Plan: Chronic; noted Plan Disposition: Admit to PCU telemetry DNR/DNI AHA, dialysis renal diet VTE PPx: Heparin low-dose w/o bolus (platelets okay at 432) History of Present Illness Chief Complaint: SOB, diarrhea Primary Care Provider: DO Bradley Conley is a 58-year-old male with PMH of kidney transplant (on prednisone), immunosuppressed status, old RBBB, 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 He presented for KNOX, diarrhea, and dizziness that started on 08/24. Patient reports that he was around a sick coworker this past week. He then developed worsening KNOX when walking to the bathroom. He denies SOB at rest. SOB is worse when lying flat and he reports that he slept in his recliner on . No supplemental oxygen at home. No ambulatory assist devices. He denies history of pulmonary illness such as COPD, asthma. He denies smoking, tobacco use, and alcohol use. Patient had his renal transplant in 1979, when he was in 10th grade. He had previously been on dialysis starting in seventh grade. He follows with Dr. Canela for neph rology. He denies history of cardiac events such as MIs, bypasses, and stents. His diarrhea has improved since it started on , but he notes it is still runny; nonbloody; he is not taking anything additional at home for it. He endorses dizziness with standing that started on . He took his regular medications this morning. Patient recently decreased his propranolol from 160 mg twice daily to 80 mg daily approximately 1.5 months ago. He had a stress test and echo performed in June. Of note, he has been holding his amlodipine since due to low blood pressure and swelling in his lower extremities. His heart rate has also been markedly lower than it was during his hospitalization in June for COVID. Patient is bradycardic at 41 bpm at time of admission; normotensive; 98% SpO2 on room air; vitals otherwise stable. ED course: Zosyn 4.5 g IV NSS 1000 mL IV ROS: Patient endorses clammy, KNOX, diarrhea, and swelling in legs. Patient denies fever, chills, sweating, body aches, chest pain, chest palpitations, SOB at rest, pressure in L arm or jaw, abdominal pain, N/V, dysuria, burning with urination, blood in the urine/stool, or numbness/tingling/pain in legs. Allergies Allergy/AdvReac Type Severity Reaction Status Date / Time NSAIDS (Non-Steroidal AdvReac Unknown GI bleeds Verified 08/16/23 09:56 Anti-Inflamma Home Medications Medication Instructions Recorded Confirmed Type folic acid 800 mcg tablet 800 mcg PO DAILY 10/25/19 08/28/23 History calcium carbonate 300 mg (750 mg) 300 mg PO BID PRN Heartburn 01/01/20 08/28/23 History chewable tablet (Tums) clindamycin 1 %-benzoyl peroxide 5 1 applic topical BID PRN acne #45 07/08/22 08/28/23 Rx % topical gel grams cyanocobalamin (vitamin B-12) 2,000 mcg PO DAILY 01/12/23 08/28/23 History 1,000 mcg tablet azathioprine 50 mg tablet 150 mg (3 x 50 mg) PO QAM #270 tabs 03/09/23 08/28/23 Rx prednisone 10 mg tablet 10 mg PO QAM #90 tabs 04/28/23 08/28/23 Rx gemfibrozil 600 mg tablet 600 mg PO HS 06/22/23 08/28/23 History calcitriol 0.25 mcg capsule 0.25 mcg PO HS #90 caps 06/29/23 08/28/23 Rx atorvastatin 20 mg tablet 20 mg PO QPM #90 tabs 07/05/23 08/28/23 Rx warfarin 5 mg tablet 5 mg PO DAILY #90 tabs 07/05/23 08/28/23 Rx amlodipine 5 mg tablet 5 mg PO DAILY #90 tabs 07/31/23 08/28/23 Rx lisinopril 20 mg tablet 20 mg PO QAM #90 tabs 07/31/23 08/28/23 Rx propranolol 80 mg capsule,24 80 mg PO DAILY #90 caps 07/31/23 08/28/23 Rx hr,extended release Past Med/Surg History Medical History Blood clotting disorder pt unable to specify -- dx after DVT LLE > 5 years ago - on warfarin Chronic steroid use Gout Osteoarthritis History of renal dialysis prior to transplant History of GI bleed GERD (gastroesophageal reflux disease) TUMS prn History of DVT (deep vein thrombosis) LLE - > 5 years ago - clotting disorder - on warfarin Anemia due to chronic kidney disease Anticoagulant long-term use Gout Hypercholesterolemia Hypertension Immunosuppressed status 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 Lynn Family History Brother Diabetes Mother Diabetes Other Coronary heart disease Heart disease Hypertension No family history of adverse response to anesthesia Social History Smoking Status: Never smoker Second Hand Exposure: No; Do You Dip or Chew Tobacco: No; Hx Alcohol Use: No Hx Substance Use: No Preferred Language: Slovenian Communication Ability: Effective Visual Impairment: No Limitations Hearing Ability: Normal Perinatal Technician Required: No Beliefs That Will Affect Care: None Current Living Situation: Spouse Current Living Situation Comment: home with current occupational status: employed Feels Safe at Home: Yes Assistive Devices: None Review of Systems Review of Systems: See HPI above Physical Exam Physical Exam: General: no acute distress; clinically dry; anxious; non-toxic appearing; well- nourished; cooperative; 98% SpO2 on RA HEENT: normocephalic, atraumatic; no scleral icterus; PERRLA; dry mucus membrane; vision and hearing grossly intact Neck: supple; negative for JVD; no lymphadenopathy; trachea midline Skin: warm, dry without signs of tenting; no cyanosis; no rashes, bruising, lesions, or erythema noted CV: chest wall NTP; RR, bradycardic around 38-45 bpm; S1/S2 normal; no murmurs/rubs/gallops; diminished pulses intact and symmetric at radial, DP, and PT Lungs: no acute respiratory distress; symmetrical chest wall expansion; clear breath sounds across all lung segundo w/o adventitious sounds; no wheezing ABD: Soft, NTP; RUQ NTP; BS present; no rebound/guarding; no ascites; no distention MSK: no tics or fasciculations; nonpitting edema in the LEs b/l, nonerythematous, and NTP Neuro: A&Ox3; normal mood and affect; fluent speech; sensation grossly intact in the LEs b/l Results & Data Results & Data Vital Signs (Past 12 Hours) Vital Signs Temp Pulse Resp BP Pulse Ox O2 Del Method 08/28/23 08:51 43 L 08/28/23 08:29 Room Air 08/28/23 08:29 100 Room Air 08/28/23 08:27 43 L 22 100 Room Air 08/28/23 08:06 36.7 C 45 L 16 135/75 100 Room Air Laboratory Results Abnormal lab results 08/28/23 08/28/23 08/28/23 Range/Units 08:21 11:05 11:58 WBC 12.09 H (4.8-10.8) K/ul RBC 2.70 L (4.70-6.10) M/uL Hgb 9.2 L (14.0-18.0) g/dl Hct 29.1 L (42.0-52.0) % MCV 107.8 H (80.0-100.0) fL MCH 34.1 H (25.0-34.0) pg MCHC 31.6 L (32.0-36.0) g/dL RDW Std Deviation 61.5 H (36.4-46.3) fL RDW Coeff of Zeus 15.5 H (11.5-14.5) % Plt Count 432 H (130-400) K/uL Neut # (Auto) 9.46 H (1.40-6.50) K/uL Carter # (Auto) 0.76 H (0.11-0.59) K/uL Immature Gran # (Auto) 0.26 H (0.01-0.20) K/uL PT 19.1 H (9.0-12.0) Seconds INR 1.8 H (0.9-1.1) APTT 33 H (21-31) Seconds Potassium 5.2 H (3.5-5.1) mmol/L Chloride 108 H (98-107) mmol/L Carbon Dioxide 13 L 14 L (21-32) mmol/L Anion Gap 17 H 15 H (3-11) BUN 146 H 143 H (6-23) mg/dl Creatinine 4.79 H* 4.71 H* (0.6-1.4) mg/dl BUN/Creatinine Ratio 30.5 H 30.8 H (10-20) Glucose 129 H 143 H (70-99(Fasting)) mg/dl Calcium 8.5 L 8.2 L (8.6-10.3) mg/dl Troponin I High Sens 99258.8 H* 9733.0 H* (0-20) pg/ml B-Natriuretic Peptide 4669 H (0-100) pg/ml Urine Protein 2+ H (Negative) Diagnostic Findings Chest X-Ray 08/28/23 08:11 XR chest 1V portable HISTORY: 58 years-old Male Sepsis acute sepsis COMPARISON: 06/22/2023 TECHNIQUE: AP view of the chest FINDINGS: Cardiac silhouette is enlarged. Asymmetric right hilar prominence. Right infrahilar and bibasilar airspace opacities. Pulmonary vascular congestion. No pneumothorax. Probable trace pleural effusions. Bones appear grossly intact with degenerative changes of the shoulders and spine. A peripherally calcified vascular structure is again noted within the left axilla measuring 3.1 cm transversely. IMPRESSION: 1. Cardiomegaly with pulmonary vascular congestion. 2. Bibasilar and right perihilar opacities are suggestive of multifocal pneumonia. Follow-up imaging in order to document resolution is recommended. 3. Probable trace pleural effusions. ACT 112: Negative or not required by law. The above report was generated using voice recognition software. It may contain grammatical, syntax or spelling errors. Electronically signed by: Mehdi Kiser M.D. 08/28/2023 9:17 AM Code Status & VTE Plan Code Status DNR/DNI VTE Prophylaxis Plan VTE Prophylaxis will be ordered: Yes Supervising Physician Co-Signing Physician Notes Bradley is a 58-year-old male with a past medical history of renal transplant on prednisone, hypertension, DVT on warfarin, osteoarthritis, and first-degree AV block who presented to the emergency department with progressive dyspnea on exertion, orthopnea, presyncope without syncope, and fatigue. Acutely bradycardic in the 40s with EKG showing sinus first-degree AV block. EKG is concerning for potential ST elevations in the inferior leads with reciprocal depressions; initial troponin is elevated at 10,000. Given EKG changes and markedly elevated troponin stat cardiology consultation was obtained. He has been without chest pain at that point. Seen at the bedside and on reassessment at time of transport to floor. Patient remains without any chest pain, chest pressure, lightheadedness, dizziness, or syncope/presyncope.Troponin is downtrending at time of reassessment patient aware and reassured by this. Anticipate cardiac catheterization tomorrow. Pacer pads at bedside and atropine is available on-call if patient develops symptomatic bradycardia. Remains asymptomatic at this time. Multifocal pneumonia Patient is with multifactorial shortness of breath, fatigue, and? Multifocal pneumonia. Leukocytosis present, procalcitonin is normal Has a leukocytosis with a negative Pro-Sy, perihilar opacities and bibasilar opacities suggestive of multifocal pneumonia. Patient likely has superimposed CHF with cardiomegaly, pulmonary vascular congestion, and trace pleural effusions. Zosyn continually renally adjusted and Doxy added for atypical coverage, MRSA nares pending Possible small pleural effusions but no overt pulmonary edema, with KELSEA and infection, reasonable to continue small fluid boluses at this time and follow for signs of hypxoia/fluid overload. BNP pending. weight ~78kg, prior weights ~75-75kg. Demand ischemia/type II DC With? Inferior ST changes on EKG, initial troponin over than 10,000 in the setting of renal disease and pneumonia. No chest pain clinically. Cardiology consulted, stat echo pending, patient's warfarin for DVT temporarily held and he was transitioned to heparin GTT. INR slightly subtherapeutic on admission KELSEA on CKD With history of renal transplant the 1980s stable on prednisone/azathioprine. Baseline creatinine is 2.63.3, acutely elevated at 4.79 DDx includes prerenal with poor intake and multifocal pneumonia in addition to cardiogenic with worsened bradycardia, elevated troponin, and echo pending. Lactate is normal and patient has not been hypotensive. Nephrology consulted. Azathiaprine/pred continued. Potassium mildly elevated 5.2 without peaked T waves, patient s/p 1 L fluid and repeat BMP is pending. No signs of respiratory failure. Emergent dialysis not indicated at time of admission.. Hydration continued and patient may require cardiac cath/contrast administration during this admission with increased risk of DAVID Agree with assessment and management as above PG Care Time/CCT Total # of Minutes Spent Total Time Spent with Patient: Total time spent is greater than 50% in coordination of care (as documented) at patient's floor/unit and/or counseling patient: Coding [place] [address] INT INP/OBS CARE MIN Patient Type Established Medical Decision Making High Complexity Diagnoses Multifocal pneumonia J18.9 Type 2 DC (myocardial infarction) I21.A1 Kidney replaced by transplant Z94.0 Acute kidney injury superimposed on chronic kidney disease N17.9; N18.9 Anemia D64.9 Bradycardia R00.1 History of DVT (deep vein thrombosis) Z86.718 Hypertension, unspecified type I10 Hypertension type: unspecified Hypercholesterolemia E78.00 1st degree AV block I44.0 Immunosuppressed status D89.9 (8) Hypertension Hypertension type: unspecified Qualified Code(s): I10 - Essential (primary) hypertension
[2023-08-28] MEDS: PIPERACILLIN/TAZOBACTAM 4.5 GM/100 ML BAG IV ONE (09:59)
[2023-08-28] MEDS: SODIUM CHLORIDE 0.9% 1,000 ML IV ONE (09:59)
[2023-08-28] MEDS: MAGNESIUM SULFATE / D5W 1 GM/100 ML BAG IV ONE (10:49)
[2023-08-28] MEDS: MAGNESIUM SULFATE 1GM / D5W BAG IV ONE (10:49)
[2023-08-28] MEDS ORDERED: Heparin IV Adult Wt-Based Low-Dose *NO* INITIAL Bolus Protocol IV SCH (11:15)
[2023-08-28] MEDS: HEPARIN SODIUM/DEXTROSE 25,000 UNITS/500 ML BAG IV SCH (11:42)
[2023-08-28 12:06] LABS: Calcium 8.2 mg/dl (8.6-10.3); Potassium 4.9 mmol/L (3.5-5.1)
[2023-08-28 12:18] LABS: Creatinine Clr Calc Pharmacy 16.5 ml/min; Est GFR (African American) 14.7 ml/min; Est GFR (Non-African American) 12.7 ml/min
[2023-08-28 12:35] LABS: BUN Creatinine Ratio 30.8 (10-20)
[2023-08-28] MEDS: DOXYCYCLINE HYCLATE 100 MG in DEXTROSE 5% MINI-B 100 ML IV ONE (12:48)
--- NOTE | 2023-08-28 13:03 | Electrocardiogram Report ---
Test Reason : Blood Pressure : / mmHG Vent. Rate : 045 BPM Atrial Rate : 045 BPM P-R Int : 240 ms QRS Dur : 148 ms QT Int : 440 ms P-R-T Axes : 035 -25 -54 degrees QTc Int : 380 ms Sinus bradycardia with 1st degree A-V block Left ventricular hypertrophy with QRS widening and repolarization abnormality Right bundle branch block Old Inferior infarct Abnormal ECG When compared with ECG of 22-JUN-2023 17:43, Vent. rate has decreased BY 30 BPM Criteria for Inferior infarct now present Confirmed by Eric Louie ([id number]) on 08/28/2023 1:03:06 PM Referred By: Confirmed By:Eric Louie
--- NOTE | 2023-08-28 13:22 | Nephrology Consultation ---
Date of Consultation August 28, 2023 Assessment & Plan (1) Acute kidney injury superimposed on chronic kidney disease: (2) Anemia: (3) Acidosis: (4) Kidney replaced by transplant: Plan 58-year-old gentleman with stage IV CKD with allograft dysfunction, baseline creatinine lately around 3-3.3 mg/dl with high-grade proteinuria, admitted with several days history of diarrhea, shortness of breath and noted to have multifocal pneumonia and acute kidney injury with volume depletion. Shortness of breath most like related to multifocal pneumonia and possible underlying coronary artery disease, clinically no evidence of significant pulmonary congestion. Blood pressure has been stable. -- Encouraged to maintain oral hydration as he reports decent appetite, as diarrhea seem to be improving and clinically does not seem to be significantly volume depleted, okay to keep off of IV fluid at this time. -- If cardiac cath is planned in next 24 to 48 hours, would recommend hydrating prior to cardiac cath -- iron study, may need IV iron, hold off of MUNA for now -- Continue on azathioprine and prednisone current dose -- Start on sodium bicarbonate 650 mg twice a day -- Check phosphorus in a.m., if elevated, will start on phosphorus binder Thank you for allowing me to participate in your patient's care. It was a pleasure to see Bradley. History of Present Illness Reason for Consultation: Acute kidney injury with history of advanced CKD with allograft dysfunction. History of Present Illness Mr. 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 Nephrology consult was requested for management of KELSEA, immunosuppression with history of kidney transplant. Electronic medical records were reviewed in detail during patient's visit. Bradley presented to ER with several days history of diarrhea, shortness of breath, cough, dizziness at home. On admission chest x-ray showed multifocal pneumonia and pulmonary congestion. Labs showed creatinine 4.7 with BUN 145. Hemoglobin was low at 9.5 with baseline hemoglobin around 11. Troponin was noted to be elevated and EKG with some acute changes compared to prior EKG a few days ago. Heart rate was noted to be 41-45, beta-macy was discontinued. He denied chest pain, recent fever or chills. He was given IV fluid bolus and started on IV Zosyn empirically. Never smoker. He was recently seen by cardiology as preoperative evaluation for hemorrhoid surgery in future. As part of evaluation he had abnormal stress test and was planned to have cardiac cath in near future. 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 Kidney function has been slowly declining, b/l cr staying around 3.0 mg/dl, with high-grade proteinuria of about 3 g ,although recently further worsening noted, creatinine was 3.3 on routine labs in June, was on lisinopril 20 mg daily, no hematuria. He has been following with dermatology routinely. PMH also significant for complications related to long history of advanced CKD and end-stage renal disease including hypertension, anemia. Iron stores have been adequate, has not been on MUNA. 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 Most recent colonoscopy was unremarkable other than diverticulosis and non-bleeding internal and external hemorrhoids [place] [address] Correa. Has hypercholesterolemia, on atorvastatin 20 mg taken at bedtime and gemfibrozil 600 mg taken daily. Overall he feels slightly better, does not feel as weak or short of breath as he used to well walking back and forth from bathroom. Denies shortness of breath or chest pain at rest. Blood pressure has been stable. Reports decent urine output. Appetite decent. Allergies Allergy/AdvReac Type Severity Reaction Status Date / Time NSAIDS (Non-Steroidal AdvReac Unknown GI bleeds Verified 08/16/23 09:56 Anti-Inflamma Home Medications Medication Instructions Recorded Confirmed Type folic acid 800 mcg tablet 800 mcg PO DAILY 10/25/19 08/28/23 History calcium carbonate 300 mg (750 mg) 300 mg PO BID PRN Heartburn 01/01/20 08/28/23 History chewable tablet (Tums) clindamycin 1 %-benzoyl peroxide 5 1 applic topical BID PRN acne #45 07/08/22 08/28/23 Rx % topical gel grams cyanocobalamin (vitamin B-12) 2,000 mcg PO DAILY 01/12/23 08/28/23 History 1,000 mcg tablet azathioprine 50 mg tablet 150 mg (3 x 50 mg) PO QAM #270 tabs 03/09/23 08/28/23 Rx prednisone 10 mg tablet 10 mg PO QAM #90 tabs 04/28/23 08/28/23 Rx gemfibrozil 600 mg tablet 600 mg PO HS 06/22/23 08/28/23 History calcitriol 0.25 mcg capsule 0.25 mcg PO HS #90 caps 06/29/23 08/28/23 Rx atorvastatin 20 mg tablet 20 mg PO QPM #90 tabs 07/05/23 08/28/23 Rx warfarin 5 mg tablet 5 mg PO DAILY #90 tabs 07/05/23 08/28/23 Rx amlodipine 5 mg tablet 5 mg PO DAILY #90 tabs 07/31/23 08/28/23 Rx lisinopril 20 mg tablet 20 mg PO QAM #90 tabs 07/31/23 08/28/23 Rx propranolol 80 mg capsule,24 80 mg PO DAILY #90 caps 07/31/23 08/28/23 Rx hr,extended release Patient History Medical History Blood clotting disorder pt unable to specify -- dx after DVT LLE > 5 years ago - on warfarin Chronic steroid use Gout Osteoarthritis History of renal dialysis prior to transplant History of GI bleed GERD (gastroesophageal reflux disease) TUMS prn History of DVT (deep vein thrombosis) LLE - > 5 years ago - clotting disorder - on warfarin Anemia due to chronic kidney disease Anticoagulant long-term use Gout Hypercholesterolemia Hypertension Immunosuppressed status 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 Lynn Family History Brother Diabetes Mother Diabetes Other Coronary heart disease Heart disease Hypertension No family history of adverse response to anesthesia Social History Smoking Status: Never smoker Second Hand Exposure: No; Do You Dip or Chew Tobacco: No; Hx Alcohol Use: No Hx Substance Use: No Preferred Language: Serbian Communication Ability: Effective Visual Impairment: No Limitations Hearing Ability: Normal Shove Up Required: No Beliefs That Will Affect Care: None Current Living Situation: Spouse Current Living Situation Comment: home with current occupational status: employed Other Information That Helps Us Care for You: No Feels Safe at Home: Yes Assistive Devices: Glasses Review of Systems Review of Systems: All systems reviewed & are unremarkable except as noted in Subjective Physical Exam Constitutional: WD/WN, vitals as above no acute distress Eyes: + anicteric sclerae Neck: normal visual inspection Respiratory: no respiratory distress Auscultation: lungs clear to auscultation bilaterally; no crackles and no wheezes Cardiovascular: Rate/Rhythm: regular rate and regular rhythm Heart Sounds: normal S1 and normal S2 Extremities: no edema Gastrointestinal (Abdomen): Inspection/Auscultation: abdomen normal to inspection and normal bowel sounds Percussion/Palpation: abdomen soft; abdomen nontender obese Musculoskeletal: Extremities: extremities normal to inspection Skin: no rashes, warm and dry Neurologic: no focal motor deficits Psychiatric: Orientation: alert and oriented x 3 Affect: euthymic affect Results & Data Vital Signs (Past 12 Hours) Vital Signs Temp Pulse Resp BP Pulse Ox O2 Del Method 08/28/23 12:02 41 L 18 98 08/28/23 12:02 134/79 08/28/23 12:00 40 L 20 97 08/28/23 11:31 147/76 H 08/28/23 11:31 42 L 18 99 08/28/23 11:30 41 L 18 98 08/28/23 11:00 135/73 08/28/23 11:00 42 L 18 98 08/28/23 10:31 41 L 20 134/66 99 Room Air 08/28/23 10:00 42 L 22 155/79 H 99 Room Air 08/28/23 09:30 42 L 24 147/80 H 98 Room Air 08/28/23 09:00 41 L 22 144/71 H 98 Room Air 08/28/23 08:51 43 L 08/28/23 08:31 42 L 20 166/83 H 100 Room Air 08/28/23 08:29 Room Air 08/28/23 08:29 100 Room Air 08/28/23 08:27 43 L 22 100 Room Air 08/28/23 08:22 43 L 22 178/87 H 100 Room Air 08/28/23 08:06 36.7 C 45 L 16 135/75 100 Room Air PG Care Time/CCT Total # of Minutes Spent Total Time Spent with Patient: Total time spent is greater than 50% in coordination of care (as documented) at patient's floor/unit and/or counseling patient: Coding Level of Care Code 67505 IN/OBS CONSULT LVL 5,80M Diagnoses Acute kidney injury superimposed on chronic kidney disease N17.9; N18.9 Anemia D64.9 Acidosis E87.20 Kidney replaced by transplant Z94.0
[2023-08-28] MEDS ORDERED: SODIUM CHLORIDE 0.9% 250 ML IV PRN ×2 (13:29→14:43)
[2023-08-28] MEDS ORDERED: ATROPINE SO4 1 MG/ML 1ML VIAL IV PRN (13:40)
[2023-08-28] MEDS ORDERED: ACETAMINOPHEN 325 MG TAB PO PRN (13:45)
--- NOTE | 2023-08-28 14:55 | XCELERA ---
[id number]
--- NOTE | 2023-08-28 15:51 | Cardiology Consultation ---
Date of Consultation August 28, 2023 Assessment & Plan (1) Bradycardia: This is fairly profound. Despite a decrease in his propranolol dose his heart rate has not improved. Agree with holding beta-macy at this time. We will also check a Lyme titer just to be certain that he is not infected. Given his right bundle branch block, first-degree AV block, and some subtle wall motion abnormalities noted on echo I am concerned that he has RCA territory ischemia with underlying chronic RCA CAD. This certainly could trigger bradycardia and have been the cause for him to be unable to achieve his target heart rate with dobutamine infusion (chronotropic incompetence). If holding the beta-macy and excluding ischemia is unrevealing for coronary disease then he may have primary conduction system disease and require pacemaker implantation. (2) Multifocal pneumonia: This is likely the trigger for this acute admission. Contribute to dehydration, shortness of breath, etc. Treatment per primary team. (3) Type 2 LA (myocardial infarction): Suspect patient has underlying chronic occlusive coronary disease. I would like for him to undergo cardiac catheterization to evaluate further. He would also need this prior to upcoming surgery. However, at the moment the risk of the procedure outweighs anticipated benefit in the short term. Will try to optimize him medically and then proceed with cardiac catheterization to evaluate coronaries. If he requires percutaneous revascularization this would likely have to be staged because of his poor renal function. The echocardiogram suggests mildly reduced EF but this is predominantly because of the septal motion with IVCD. There is very subtle inferior wall hypokinesis seen on some views but not others. He is tentatively scheduled for catheterization on Monday. We will keep him on guideline directed medical therapy for secondary prevention. Currently, beta-macy contraindicated as is LAURIE inhibitor/ARB. He will remain on low-dose aspirin and statin will continue. Will discontinue the warfarin and placed him on heparin drip. (4) Acute kidney injury superimposed on chronic kidney disease: Patient is being seen by nephrology. Will defer treatment to them. I note that over the past year and a half his GFR has worsened. Today it is 12.7 with a creatinine of 4.71. He had been running in the upper 20s for GFR. Some of this is likely dehydration from the diarrhea. Despite the fact that he has some radiographic evidence of pulmonary edema and his BNP is elevated he overall looks volume depleted and the elevated BNP may be secondary to his chronic mitral regurgitation. I favor IV fluid resuscitation at this time and if needed we could diurese in the future. History of Present Illness Reason for Consultation: Elevated troponin, abnormal EKG Attending Physician: Hayes Burgess MD History of Present Illness Pleasant 58-year-old gentleman with complex past medical history including homozygous C6 77 T polymorphism in the MTHFR gene, kidney transplant with a cadaveric kidney 43 years ago on chronic immunosuppression, history of DVT on chronic warfarin, with recent COVID-19 infection and mildly elevated troponin at that time. He underwent dobutamine stress echocardiogram on 07/04/2023 which failed to demonstrate any evidence of ischemia but his heart rate was unresponsive to the dobutamine achieving only 66% of target. He was taking propranolol at the time and the dose was decreased by 50%. Recently seen in the cardiology clinic (Trell Moore PA-C) where a Lexiscan MPI stress test was requested in anticipation of upcoming hemorrhoid surgery to be performed by Dr. Meza. Unfortunately, for the past 3 to 4 days the patient has had shortness of breath, fatigue, and diarrhea. He presented to the emergency department with those complaints. EKG was performed demonstrating right bundle branch block, first-degree AV block, voltage criteria for LVH with associated T wave changes, inferior Q waves, anterolateral ST depressions unchanged from prior EKG, and sinus bradycardia heart rate 45. These findings were essentially unchanged except for the evidence of old inferior LA and significant reduction in his baseline heart rate compared to prior study (June 2023). His troponin was also found to be elevated. I was asked to see him regarding the EKG and elevated troponin. Patient denies any chest pain now or recently. He had a chest x-ray suggestive of pulmonary vascular congestion, possible trace bilateral pleural effusions, and evidence of multifocal pneumonia. Also noted on labs was significantly elevated BNP of 4669, elevated white count, anemia, elevated platelet count suggestive of acute phase reaction, elevated neutrophils, and GFR which had worsened from previous. Creatinine was 4.71 and BUN 143 on current labs. Patient denies any syncope, near syncope, orthopnea, PND, racing heartbeat, palpitations, or edema. His is present with him at the time of evaluation. Patient tells me he had been doing better recently but was placed on allopurinol for gout and this caused him significant problems. He voices no other complaints or concerns at this time. Patient was previously seen by Dr. Lynn for nephrology needs. Now seen by Dr. Noyola. Allergies Allergy/AdvReac Type Severity Reaction Status Date / Time NSAIDS (Non-Steroidal AdvReac Unknown GI bleeds Verified 08/16/23 09:56 Anti-Inflamma Home Medications Medication Instructions Recorded Confirmed Type folic acid 800 mcg tablet 800 mcg PO DAILY 10/25/19 08/28/23 History calcium carbonate 300 mg (750 mg) 300 mg PO BID PRN Heartburn 01/01/20 08/28/23 History chewable tablet (Tums) clindamycin 1 %-benzoyl peroxide 5 1 applic topical BID PRN acne #45 07/08/22 08/28/23 Rx % topical gel grams cyanocobalamin (vitamin B-12) 2,000 mcg PO DAILY 01/12/23 08/28/23 History 1,000 mcg tablet azathioprine 50 mg tablet 150 mg (3 x 50 mg) PO QAM #270 tabs 03/09/23 08/28/23 Rx prednisone 10 mg tablet 10 mg PO QAM #90 tabs 04/28/23 08/28/23 Rx gemfibrozil 600 mg tablet 600 mg PO HS 06/22/23 08/28/23 History calcitriol 0.25 mcg capsule 0.25 mcg PO HS #90 caps 06/29/23 08/28/23 Rx atorvastatin 20 mg tablet 20 mg PO QPM #90 tabs 07/05/23 08/28/23 Rx warfarin 5 mg tablet 5 mg PO DAILY #90 tabs 07/05/23 08/28/23 Rx amlodipine 5 mg tablet 5 mg PO DAILY #90 tabs 07/31/23 08/28/23 Rx lisinopril 20 mg tablet 20 mg PO QAM #90 tabs 07/31/23 08/28/23 Rx propranolol 80 mg capsule,24 80 mg PO DAILY #90 caps 07/31/23 08/28/23 Rx hr,extended release Patient History Medical History Blood clotting disorder pt unable to specify -- dx after DVT LLE > 5 years ago - on warfarin Chronic steroid use Gout Osteoarthritis History of renal dialysis prior to transplant History of GI bleed GERD (gastroesophageal reflux disease) TUMS prn History of DVT (deep vein thrombosis) LLE - > 5 years ago - clotting disorder - on warfarin Anemia due to chronic kidney disease Anticoagulant long-term use Gout Hypercholesterolemia Hypertension Immunosuppressed status 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 Lynn Family History Brother Diabetes Mother Diabetes Other Coronary heart disease Heart disease Hypertension No family history of adverse response to anesthesia Social History Smoking Status: Never smoker Second Hand Exposure: No; Do You Dip or Chew Tobacco: No; Hx Alcohol Use: No Hx Substance Use: No Preferred Language: Macedonian Communication Ability: Effective Visual Impairment: No Limitations Hearing Ability: Normal Orthopedic Mechanic Required: No Beliefs That Will Affect Care: None Current Living Situation: Spouse Current Living Situation Comment: home with current occupational status: employed Feels Safe at Home: Yes Assistive Devices: None Review of Systems Review of Systems: Negative except as per HPI Physical Exam Constitutional: Middle-aged, chronically ill-appearing. No acute distress. Eyes: Extraocular muscles intact. Sclera are anicteric. ENMT: Oral mucosa is pink and dry Neck: No JVD or bruits appreciated Respiratory: Bibasilar dullness. I do not appreciate any wheezing or crackles. Cardiovascular: Bradycardic rate, regular rhythm. Grade 2/6 systolic murmur. Trace bilateral lower extremity edema. Left upper extremity fistula without pulse/thrill. Musculoskeletal: no cyanosis or clubbing, extremities motor strength 5/5 Neurologic: Cognition is intact. Speech is fluent. No focal deficits. No tremor. Psychiatric: A+Ox3, euthymic affect Results & Data Vital Signs (Past 12 Hours) Vital Signs Temp Pulse Pulse Resp BP BP Pulse Ox 08/28/23 13:43 39 L 20 139/76 98 08/28/23 12:02 41 L 18 98 08/28/23 12:02 134/79 08/28/23 12:00 40 L 20 97 08/28/23 11:31 147/76 H 08/28/23 11:31 42 L 18 99 08/28/23 11:30 41 L 18 98 08/28/23 11:00 135/73 08/28/23 11:00 42 L 18 98 08/28/23 10:31 41 L 20 134/66 99 08/28/23 10:00 42 L 22 155/79 H 99 08/28/23 09:30 42 L 24 147/80 H 98 08/28/23 09:00 41 L 22 144/71 H 98 08/28/23 08:51 43 L 08/28/23 08:31 42 L 20 166/83 H 100 08/28/23 08:29 08/28/23 08:29 100 08/28/23 08:27 43 L 22 100 08/28/23 08:22 43 L 22 178/87 H 100 08/28/23 08:06 36.7 C 45 L 16 135/75 100 O2 Del Method 08/28/23 13:43 Room Air 08/28/23 12:02 08/28/23 12:02 08/28/23 12:00 08/28/23 11:31 08/28/23 11:31 08/28/23 11:30 08/28/23 11:00 08/28/23 11:00 08/28/23 10:31 Room Air 08/28/23 10:00 Room Air 08/28/23 09:30 Room Air 08/28/23 09:00 Room Air 08/28/23 08:51 08/28/23 08:31 Room Air 08/28/23 08:29 Room Air 08/28/23 08:29 Room Air 08/28/23 08:27 Room Air 08/28/23 08:22 Room Air 08/28/23 08:06 Room Air PG Care Time/CCT Total # of Minutes Spent Total Time Spent: 85 Total Time Spent with Patient: Total time spent is greater than 50% in coordination of care (as documented) at patient's floor/unit and/or counseling patient: Coding Level of Care Code 37201 IN/OBS CONSULT LVL 5,80M Diagnoses Bradycardia R00.1 Multifocal pneumonia J18.9 Type 2 LA (myocardial infarction) I21.A1 Acute kidney injury superimposed on chronic kidney disease N17.9; N18.9
[2023-08-28] MEDS: PIPERACILLIN/TAZOBACTAM 4.5 GM in DEXTROSE 5% MINI-B 100 ML IV SCH (17:47)
[2023-08-28 18:26] LABS: Hematocrit (blood only) 26.2 % (42.0-52.0); Hemoglobin 8.5 g/dl (14.0-18.0)
[2023-08-28 18:48] LABS: BUN Creatinine Ratio 29.1 (10-20); Creatinine Clr Calc Pharmacy 17.4 ml/min; Est GFR (African American) 15.7 ml/min; Est GFR (Non-African American) 13.5 ml/min; Potassium 5.5 mmol/L (3.5-5.1)
[2023-08-28 18:54] LABS: ANTI-Xa, UFH(UnfractionatedHep < 0.10 IU/ml (0.3-0.7)
[2023-08-28] MEDS ORDERED: STAT IV/IM STA (19:05)
[2023-08-28] MEDS: CALCIUM GLUCONATE 10% 1,000 MG in SODIUM CHLOR 0.9% MINI-B 50 ML IV ONE (19:55)
[2023-08-28] MEDS: HEPARIN SOD (PORCINE) 1000 UNIT/ML IV ONE (19:56)
[2023-08-28] MEDS: ATORVASTATIN 20 MG TAB PO SCH (20:01)
[2023-08-28] MEDS: SODIUM BICARBONATE 650 MG TAB PO SCH (20:02)
[2023-08-28] MEDS ORDERED: gemfibroziL 600 MG TAB PO SCH (21:00)
[2023-08-28] MEDS: DOXYCYCLINE HYCLATE 100 MG in DEXTROSE 5% MINI-B 100 ML IV SCH (23:44)
[2023-08-29 02:17] LABS: Basophils # (auto) 0.02 K/uL (0.00-0.20); Basophils % (auto) 0.2 %; Eosinophils # (auto) 0.07 K/uL (0.00-0.50); Eosinophils % (auto) 0.7 %; Hematocrit (blood only) 23.5 % (42.0-52.0); Hemoglobin 7.3 g/dl (14.0-18.0); Immature Granulocytes # (auto) 0.16 K/uL (0.01-0.20); Immature Granulocytes % (auto) 1.7 %; Lymphocytes # (auto) 0.98 K/uL (1.20-3.40); Lymphocytes % (auto) 10.2 %; Mean Corpuscular Hemoglobin 33.6 pg (25.0-34.0); Mean Corpuscular Hgb Conc 31.1 g/dL (32.0-36.0); Mean Corpuscular Volume 108.3 fL (80.0-100.0); Mean Platelet Volume 9.4 fL (9.4-12.4); Monocytes # (auto) 0.62 K/uL (0.11-0.59); Monocytes % (auto) 6.5 %; Neutrophils # (auto) 7.74 K/uL (1.40-6.50); Neutrophils % (auto) 80.7 %; Platelet Count 328 K/uL (130-400); RDW Coefficient of Variation 15.6 % (11.5-14.5); RDW Standard Deviation 61.4 fL (36.4-46.3); Red Blood Count 2.17 M/uL (4.70-6.10); White Blood Count 9.59 K/ul (4.8-10.8)
[2023-08-29 02:35] LABS: Anisocytosis Present; Polychromasia 1+
[2023-08-29 02:48] LABS: Albumin Level 3.3 gm/dl (3.4-5.0); Calcium 8.1 mg/dl (8.6-10.3); Creatinine Clr Calc Pharmacy 16.7 ml/min; Est GFR (Non-African American) 12.9 ml/min; Magnesium 1.9 mg/dl (1.7-2.4); Phosphorus 6.6 mg/dl (2.5-4.9); Potassium 4.9 mmol/L (3.5-5.1)
[2023-08-29 02:52] LABS: ANTI-Xa, UFH(UnfractionatedHep 0.55 IU/ml (0.3-0.7)
[2023-08-29 02:56] LABS: INR 2.4 (0.9-1.1); Prothrombin Time 24.7 Seconds (9.0-12.0)
[2023-08-29] MEDS: azaTHIOprine 50 MG TAB PO SCH (07:40)
[2023-08-29] MEDS: predniSONE 10 MG TABLET PO SCH (07:40)
[2023-08-29] MEDS: FOLIC ACID 400 MCG TAB PO SCH (07:40)
[2023-08-29] MEDS: PATIROMER CALCIUM SORBITEX 8.4 GM PACK PO SCH (07:41)
--- NOTE | 2023-08-29 08:30 | Hospitalist Progress Note ---
Date of Service August 29, 2023 Assessment & Plan (1) Multifocal pneumonia: Plan: Symptoms began 08/24, immunosuppressed with azathioprine for renal transplant Procalcitonin WNL, COVID, RSV, flu negative CXR suggests multifocal pneumonia Blood cultures , pending MRSA swab negative Zosyn 4.5mg IV q12h Doxycycline 100 mg IV BID (2) Type 2 DC (myocardial infarction): Plan: Clinically, patient denies chest pain, left arm pain, and left jaw pain/pressure Bradycardia , worsened baseline changes with inferior wall changes, concern for IWMI Echo with depressed EF from 07/15. perhaps Inferior wall hypokinesis Troponin grossly elevated at 10,072.9-->7439 Per cardiology: patient will require a catheterization, Cath scheduled for 08/30 Heparin low-dose without bolus started in the ED BNP markedly elevated at 4669, however now with acute renal failure (3) Kidney replaced by transplant: Plan: Hx of renal transplant in 1979 Continue prednisone, consider stress dosing Per nephrology, okay to continue azathioprine (4) Acute kidney injury superimposed on chronic kidney disease: Plan: Per patient, poor oral intake and GI losses since 08/24 Avoid nephrotoxic agents Hold lisinopril Will provide patient with small boluses of 500 mL of IVF at this time and trend BMP Nephrology consulted (5) Anemia: Plan: Hgb 9.2 and HCT 29.1 on arrival; may be secondary to acute on chronic CKD Clinically, patient endorses some dizziness with standing In the setting of type II DC, transfuse to hemoglobin target >8 g/dL Hx of blood transfusion approximately 10 years ago Type and screen ordered, pending Blood informed consent obtained 2 units PRBCs ordered; (6) Bradycardia: Plan: Patient remains bradycardic despite GI losses; ? inferior changes on ecg Communication order: Place transcutaneous pacer at bedside (7) History of DVT (deep vein thrombosis): Plan: Patient normally takes warfarin; Hold warfarin Heparin low-dose without bolus started in the ED Repeat a.m. PT/INR (8) Hypertension: Plan: Hold all BP medications for now (9) Hypercholesterolemia: Plan: Continue atorvastatin Hold gemfibrozil due to kidney function (10) 1st degree AV block: Plan: Chronic; noted (11) Immunosuppressed status: Plan: Chronic; noted Plan DNR/DNI VTE PPx: Heparin low-dose w/o bolus (platelets okay at 432) Admission and Anticipated Discharge Date Admission Date: August 28, 2023 Subjective pt is anxious no chest pain, dyspneic with walking, non productive cough Physical Exam Physical Exam: cardiac is bradycardic no murmur lung is diminished at the bases Results & Data Results & Data Vital Signs (Past 12 Hours) Vital Signs Temp Pulse Pulse Resp BP Pulse Ox O2 Del Method 08/29/23 08:00 Room Air 08/29/23 08:00 39 L 08/29/23 07:07 98.2 F 38 L 16 144/67 H 96 Room Air 08/29/23 02:53 97.7 F 37 L 20 125/66 97 Room Air 08/28/23 22:16 97.7 F 36 L 16 123/65 93 Room Air 08/28/23 22:00 35 L Laboratory Results review cbc review chemistry PG Care Time/CCT Total # of Minutes Spent Total Time Spent with Patient: Total time spent is greater than 50% in coordination of care (as documented) at patient's floor/unit and/or counseling patient: Coding Level of Care Code 85536 SUB INP/OBS CARE 3/50MIN Diagnoses Multifocal pneumonia J18.9 Type 2 DC (myocardial infarction) I21.A1 Kidney replaced by transplant Z94.0 Acute kidney injury superimposed on chronic kidney disease N17.9; N18.9 Anemia D64.9 Bradycardia R00.1 History of DVT (deep vein thrombosis) Z86.718 Hypertension, unspecified type I10 Hypertension type: unspecified Hypercholesterolemia E78.00 1st degree AV block I44.0 Immunosuppressed status D89.9 (8) Hypertension Hypertension type: unspecified Qualified Code(s): I10 - Essential (primary) hypertension
[2023-08-29 09:04] LABS: ANTI-Xa, UFH(UnfractionatedHep 0.33 IU/ml (0.3-0.7)
[2023-08-29] MEDS: SODIUM BICARBONATE 650 MG TAB PO SCH (09:38)
[2023-08-29] MEDS: LORazepam 0.5 MG TAB PO STA (10:54)
[2023-08-29] MEDS: SEVELAMER HCL 800 MG TABLET PO SCH (10:54)
--- NOTE | 2023-08-29 12:16 | Nephrology Progress Note ---
Date of Service August 29, 2023 Assessment & Plan (1) Acute kidney injury superimposed on chronic kidney disease: (2) Anemia: (3) Acidosis: (4) Kidney replaced by transplant: Plan 58-year-old gentleman with stage IV CKD with allograft dysfunction, baseline creatinine lately around 3-3.3 mg/dl with high-grade proteinuria, admitted with several days history of diarrhea, shortness of breath and noted to have multifocal pneumonia and acute kidney injury with volume depletion. Shortness of breath most like related to multifocal pneumonia and possible underlying coronary artery disease, clinically no evidence of significant pulmonary congestion. Blood pressure has been stable. Hemoglobin dropped to 7.3, has adequate iron store. Potassium normal, phosphorus elevated with persistent metabolic acidosis. -- Continue on azathioprine and prednisone current dose --Increase to sodium bicarbonate 650 mg 2 tabs twice a day --Renvela 1 tab 3 times daily with meal. --Considering potential for future renal transplant again, would like to avoid blood transfusion if at all possible, considering recent acute SD, ideally should avoid MUNA. Repeat hemoglobin in afternoon if hemoglobin 7 or below, will consider blood transfusion. -- No acute indication for renal replacement therapy however discussed in detail with breath this morning that there is high likelihood that he reached end-stage kidney disease and he will need dialysis in near future if not even during this admission especially if he needs cardiac cath. He verbalized understanding and agreeable to consider dialysis. Continue to monitor and if needed will get tunneled dialysis catheter. Admission and Anticipated Discharge Date Admission Date: August 28, 2023 Juliana Huerta was seen and evaluated this morning. Denied any shortness of breath or chest pain although some conversational dyspnea noted. Blood pressure has been stable. Heart rate remains low around 40s. No improvement in renal function, BUN, creatinine remain quite elevated with multiple electrolyte abnormality. Decent urine output. Hb dropped to 7.3 Review of Systems Review of Systems: All systems reviewed & are unremarkable except as noted in Subjective Physical Exam Constitutional: WD/WN, vitals as above no acute distress Eyes: + anicteric sclerae Neck: normal visual inspection Respiratory: no respiratory distress Auscultation: lungs clear to auscultation bilaterally; no crackles and no wheezes Cardiovascular: Rate/Rhythm: regular rate and regular rhythm Heart Sounds: normal S1 and normal S2 Extremities: no edema Gastrointestinal (Abdomen): obese Musculoskeletal: Extremities: extremities normal to inspection Skin: no rashes, warm and dry Neurologic: no focal motor deficits Psychiatric: Orientation: alert and oriented x 3 Affect: euthymic affect Results & Data Vital Signs (Past 12 Hours) Vital Signs Temp Pulse Pulse Resp BP Pulse Ox O2 Del Method 08/29/23 08:00 Room Air 08/29/23 08:00 39 L 08/29/23 07:07 36.8 C 38 L 16 144/67 H 96 Room Air 08/29/23 02:53 36.5 C 37 L 20 125/66 97 Room Air PG Care Time/CCT Total # of Minutes Spent Total Time Spent with Patient: Total time spent is greater than 50% in coordination of care (as documented) at patient's floor/unit and/or counseling patient: Coding Level of Care Code 05581 SUB INP/OBS CARE 2/35MIN Diagnoses Acute kidney injury superimposed on chronic kidney disease N17.9; N18.9 Anemia D64.9 Acidosis E87.20 Kidney replaced by transplant Z94.0
[2023-08-29] MEDS: QUEtiapine FUMARATE 25 MG TABLET PO ONE (20:14)
[2023-08-30 05:56] LABS: Basophils # (auto) 0.03 K/uL (0.00-0.20); Basophils % (auto) 0.4 %; Eosinophils % (auto) 1.3 %; Hematocrit (blood only) 23.2 % (42.0-52.0); Hemoglobin 7.2 g/dl (14.0-18.0); Immature Granulocytes # (auto) 0.16 K/uL (0.01-0.20); Lymphocytes # (auto) 0.98 K/uL (1.20-3.40); Lymphocytes % (auto) 12.5 %; Mean Corpuscular Hemoglobin 33.3 pg (25.0-34.0); Mean Corpuscular Volume 107.4 fL (80.0-100.0); Mean Platelet Volume 9.5 fL (9.4-12.4); Monocytes # (auto) 0.64 K/uL (0.11-0.59); Monocytes % (auto) 8.2 %; Neutrophils # (auto) 5.92 K/uL (1.40-6.50); Neutrophils % (auto) 75.6 %; Nucleated RBC # (auto) 0.02 K/uL (0.00-0.12); Nucleated RBC % (auto) 0.3 %; Platelet Count 306 K/uL (130-400); RDW Coefficient of Variation 15.7 % (11.5-14.5); RDW Standard Deviation 61.7 fL (36.4-46.3); Red Blood Count 2.16 M/uL (4.70-6.10); White Blood Count 7.83 K/ul (4.8-10.8)
[2023-08-30 06:17] LABS: Albumin Level 3.1 gm/dl (3.4-5.0); BUN Creatinine Ratio 26.5 (10-20); Calcium 8.3 mg/dl (8.6-10.3); Creatinine Clr Calc Pharmacy 17.3 ml/min; Est GFR (African American) 15.7 ml/min; Est GFR (Non-African American) 13.5 ml/min; Magnesium 1.6 mg/dl (1.7-2.4); Phosphorus 5.1 mg/dl (2.5-4.9); Potassium 4.5 mmol/L (3.5-5.1)
[2023-08-30 06:32] LABS: ANTI-Xa, UFH(UnfractionatedHep 0.31 IU/ml (0.3-0.7); INR 2.1 (0.9-1.1); Prothrombin Time 21.5 Seconds (9.0-12.0)
[2023-08-30 06:37] LABS: Echinocytes 1+; Polychromasia 1+
--- NOTE | 2023-08-30 09:11 | Hospitalist Progress Note ---
Date of Service August 30, 2023 Assessment & Plan (1) Multifocal pneumonia: Plan: Symptoms began 08/24, immunosuppressed with azathioprine for renal transplant Procalcitonin WNL, COVID, RSV, flu negative CXR suggests multifocal pneumonia Blood cultures , negative to date MRSA swab negative not acting like pneumonia with non productive cough, will check non con chest CT send pjp pcr, consider asking pulmonary eval pending the CT results Zosyn 4.5mg IV q12h Doxycycline 100 mg IV BID (2) Type 2 KS (myocardial infarction): Plan: Clinically, patient denies chest pain, left arm pain, and left jaw pain/pressure Bradycardia , worsened baseline changes with inferior wall changes, concern for IWMI Echo with depressed EF from 07/15. perhaps Inferior wall hypokinesis Troponin grossly elevated at 10,072.9-->7439 Per cardiology: patient will require a catheterization, Cath scheduled for 08/31 tenative on HGB abd Cr Heparin low-dose without bolus started in the ED BNP markedly elevated at 4669, however now with acute renal failure (3) Kidney replaced by transplant: Plan: Hx of renal transplant in 1979 Continue prednisone, consider stress dosing Per nephrology, okay to continue azathioprine (4) Acute kidney injury superimposed on chronic kidney disease: Plan: Per patient, poor oral intake and GI losses since 08/24 Avoid nephrotoxic agents Hold lisinopril Will provide patient with small boluses of 500 mL of IVF at this time and trend BMP Nephrology consulted (5) Anemia: Plan: Hgb 9.2 and HCT 29.1 on arrival; may be secondary to acute on chronic CKD Clinically, patient endorses some dizziness with standing In the setting of type II KS, transfuse to hemoglobin target >8 g/dL Hx of blood transfusion approximately 10 years ago Concern with transfusion and possible need for future transplant, trying to be conservative, did have epo 08/30 per nephrolgy Blood informed consent obtained 2 units PRBCs ordered; (6) History of DVT (deep vein thrombosis): Plan: Patient normally takes warfarin; Hold warfarin Heparin low-dose without bolus started in the ED Repeat a.m. PT/INR (7) Hypercholesterolemia: Plan: Continue atorvastatin Hold gemfibrozil due to kidney function Plan DNR/DNI VTE PPx: Heparin low-dose w/o bolus (platelets okay at 432) Admission and Anticipated Discharge Date Admission Date: August 28, 2023 Subjective pt is still with some shortness of breath but does not have a cough, his KNOX is lessened due to increased CR and anemia we are holding off on LHC at this time Physical Exam Physical Exam: cardiac is regular, no murmur lungs are diminished at the bases no wheezes no focal loss abd is soft sligtly distended Results & Data Results & Data Vital Signs (Past 12 Hours) Vital Signs Temp Pulse Pulse Resp BP Pulse Ox O2 Del Method 08/30/23 07:59 98.2 F 46 L 18 128/67 99 Room Air 08/30/23 05:52 44 L 08/30/23 02:19 98.2 F 46 L 20 146/73 H 97 Room Air 08/29/23 23:33 97.5 F L 43 L 16 130/66 96 Room Air 08/29/23 21:58 47 L Laboratory Results reviewed cbc reviewed chemistry PG Care Time/CCT Total # of Minutes Spent Total Time Spent with Patient: Total time spent is greater than 50% in coordination of care (as documented) at patient's floor/unit and/or counseling patient: Coding Level of Care Code 19241 SUB INP/OBS CARE 3/50MIN Diagnoses Multifocal pneumonia J18.9 Type 2 KS (myocardial infarction) I21.A1 Kidney replaced by transplant Z94.0 Acute kidney injury superimposed on chronic kidney disease N17.9; N18.9 Anemia D64.9 History of DVT (deep vein thrombosis) Z86.718 Hypercholesterolemia E78.00
--- NOTE | 2023-08-30 10:25 | Nephrology Progress Note ---
Date of Service August 30, 2023 Assessment & Plan (1) Acute kidney injury superimposed on chronic kidney disease: (2) Anemia: (3) Acidosis: (4) Kidney replaced by transplant: Plan 58-year-old gentleman with stage IV CKD with allograft dysfunction, baseline creatinine lately around 3-3.3 mg/dl with high-grade proteinuria, admitted with several days history of diarrhea, shortness of breath and noted to have multifocal pneumonia and acute kidney injury with volume depletion. Kidney function remains quite low although slight improvement in BUN and creatinine noted. Potassium normal. Bicarb slightly improved on sodium bicarbonate. Hemoglobin remains low, has adequate iron store. --Epogen 20,000 units x 1 dose now, repeat hemoglobin in afternoon if hemoglobin drops below 7, okay to give blood transfusion --Continue on azathioprine and prednisone current dose --Continue sodium bicarbonate 650 mg 2 tabs twice a day, Renvela 1 tab 3 times daily with meal. --No acute indication for renal replacement therapy but Mr. Mena knows that there is high likelihood that he reached end-stage kidney disease and he will need dialysis in near future if not even during this admission especially if he needs cardiac cath. --rt arm Nephrology precaution Admission and Anticipated Discharge Date Admission Date: August 28, 2023 Juliana Huerta was seen and evaluated today. Overall he has been feeling better, does not feel as short of breath as he used to while walking to and from the commode , denies chest pain. Blood pressure has been stable. Heart rate improved and staying about 40. Slight improvement in kidney function noted although not significant. Decent urine output. Hb staying low at 7.2. Review of Systems Review of Systems: All systems reviewed & are unremarkable except as noted in Subjective Physical Exam Constitutional: WD/WN, vitals as above no acute distress Eyes: + anicteric sclerae Neck: normal visual inspection Respiratory: no respiratory distress Auscultation: lungs clear to auscultation bilaterally; no crackles and no wheezes Cardiovascular: Rate/Rhythm: regular rhythm and + bradycardic Heart Sounds: normal S1 and normal S2 Extremities: no edema Musculoskeletal: Extremities: extremities normal to inspection Skin: no rashes, warm and dry Neurologic: no focal motor deficits Psychiatric: Orientation: alert and oriented x 3 Affect: euthymic affect Results & Data Vital Signs (Past 12 Hours) Vital Signs Temp Pulse Pulse Resp BP Pulse Ox O2 Del Method 08/30/23 07:59 36.8 C 46 L 18 128/67 99 Room Air 08/30/23 05:52 44 L 08/30/23 02:19 36.8 C 46 L 20 146/73 H 97 Room Air 08/29/23 23:33 36.4 C L 43 L 16 130/66 96 Room Air PG Care Time/CCT Total # of Minutes Spent Total Time Spent with Patient: Total time spent is greater than 50% in coordination of care (as documented) at patient's floor/unit and/or counseling patient: Coding Level of Care Code 53285 SUB INP/OBS CARE 2/35MIN Diagnoses Acute kidney injury superimposed on chronic kidney disease N17.9; N18.9 Anemia D64.9 Acidosis E87.20 Kidney replaced by transplant Z94.0
[2023-08-30] MEDS: EPOETIN ALFA 20,000 UNITS/ML VIAL SQ STA (10:50)
--- NOTE | 2023-08-30 14:04 | Hospitalist Consultation ---
Date of Consultation August 30, 2023 History of Present Illness Attending Physician: Jeronimo Levy MD Allergies Allergy/AdvReac Type Severity Reaction Status Date / Time NSAIDS (Non-Steroidal AdvReac Unknown GI bleeds Verified 08/16/23 09:56 Anti-Inflamma Home Medications Medication Instructions Recorded Confirmed Type folic acid 800 mcg tablet 800 mcg PO DAILY 10/25/19 08/28/23 History calcium carbonate 300 mg (750 mg) 300 mg PO BID PRN Heartburn 01/01/20 08/28/23 History chewable tablet (Tums) clindamycin 1 %-benzoyl peroxide 5 1 applic topical BID PRN acne #45 07/08/22 08/28/23 Rx % topical gel grams cyanocobalamin (vitamin B-12) 2,000 mcg PO DAILY 01/12/23 08/28/23 History 1,000 mcg tablet azathioprine 50 mg tablet 150 mg (3 x 50 mg) PO QAM #270 tabs 03/09/23 08/28/23 Rx prednisone 10 mg tablet 10 mg PO QAM #90 tabs 04/28/23 08/28/23 Rx gemfibrozil 600 mg tablet 600 mg PO HS 06/22/23 08/28/23 History calcitriol 0.25 mcg capsule 0.25 mcg PO HS #90 caps 06/29/23 08/28/23 Rx atorvastatin 20 mg tablet 20 mg PO QPM #90 tabs 07/05/23 08/28/23 Rx warfarin 5 mg tablet 5 mg PO DAILY #90 tabs 07/05/23 08/28/23 Rx amlodipine 5 mg tablet 5 mg PO DAILY #90 tabs 07/31/23 08/28/23 Rx lisinopril 20 mg tablet 20 mg PO QAM #90 tabs 07/31/23 08/28/23 Rx propranolol 80 mg capsule,24 80 mg PO DAILY #90 caps 07/31/23 08/28/23 Rx hr,extended release Patient History Medical History Blood clotting disorder pt unable to specify -- dx after DVT LLE > 5 years ago - on warfarin Chronic steroid use Gout Osteoarthritis History of renal dialysis prior to transplant History of GI bleed GERD (gastroesophageal reflux disease) TUMS prn History of DVT (deep vein thrombosis) LLE - > 5 years ago - clotting disorder - on warfarin Anemia due to chronic kidney disease Anticoagulant long-term use Gout Hypercholesterolemia Hypertension Immunosuppressed status 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 Lynn Family History Brother Diabetes Mother Diabetes Other Coronary heart disease Heart disease Hypertension No family history of adverse response to anesthesia Social History Smoking Status: Never smoker Second Hand Exposure: No; Do You Dip or Chew Tobacco: No; Hx Alcohol Use: No Hx Substance Use: No Preferred Language: Korean Communication Ability: Effective Visual Impairment: No Limitations Hearing Ability: Normal Site Acquisition Manager Required: No Beliefs That Will Affect Care: None Current Living Situation: Spouse Current Living Situation Comment: home with current occupational status: employed Other Information That Helps Us Care for You: No Feels Safe at Home: Yes Assistive Devices: None Review of Systems Constitutional: no sweats, no malaise and no weight loss Physical Exam Constitutional: WD/WN, vitals as above Eyes: PERRL, conjunctivae normal, anicteric sclerae no nystagmus ENMT: Nose: + external nose abnormality Results & Data Results & Data Vital Signs (Past 12 Hours) Vital Signs Temp Pulse Pulse Resp BP Pulse Ox O2 Del Method 08/30/23 11:37 36.7 C 54 L 18 146/79 H 99 Room Air 08/30/23 07:59 36.8 C 46 L 18 128/67 99 Room Air 08/30/23 05:52 44 L 08/30/23 02:19 36.8 C 46 L 20 146/73 H 97 Room Air PG Care Time/CCT Total # of Minutes Spent Total Time Spent with Patient: Total time spent is greater than 50% in coordination of care (as documented) at patient's floor/unit and/or counseling patient: Coding
--- NOTE | 2023-08-30 20:42 | CT Scan Report ---
Exam(s): CT CHEST Without Contrast EXAM: CT Chest Without Intravenous Contrast CLINICAL HISTORY: Reason for exam: renal transplant, abn cxr not acting like pnx. TECHNIQUE: Axial computed tomography images of the chest without intravenous contrast. CTDI is 17.66 mGy and DLP is 584.08 mGy-cm. Automated exposure control was utilized for the study. A dose lowering technique was utilized adhering to the principles of ALARA. COMPARISON: None. FINDINGS: Lungs: Bilateral lower lobe atelectasis, slightly more prominent on the right. Remainder lung segundo are clear. No mass. Pleural space: Minimal bilateral pleural effusions, slightly more prominent on the right compared to the left. No pneumothorax. Heart: Moderate cardiomegaly with coronary artery calcifications . No significant pericardial effusion. Bones/joints: Unremarkable. No acute fracture. No dislocation. Soft tissues: Unremarkable. Vasculature: Atherosclerotic disease of aorta with no aneurysm. Lymph nodes: Unremarkable. No enlarged lymph nodes. Kidneys and ureters: Upper abdomen reveals bilateral renal atrophy. Left upper renal pole simple cyst measuring 2.0 cm with no further follow- up imaging recommended. IMPRESSION: Bilateral lower lobe atelectasis with minimal effusions, finding slightly more prominent on the right compared to the left. Otherwise no acute cardiopulmonary disease. Electronically signed by: Oliva Alford MD 08/30/23 20:40 PM
[2023-08-30] MEDS: QUEtiapine FUMARATE 25 MG TABLET PO SCH (21:40)
[2023-08-30] MEDS: LORazepam 0.5 MG TAB PO PRN (21:50)
[2023-08-31] MEDS: ONDANSETRON INJ 2 MG/ML 2 ML VIAL IV PRN (05:33)
[2023-08-31 06:00] LABS: Basophils # (auto) 0.04 K/uL (0.00-0.20); Basophils % (auto) 0.5 %; Eosinophils # (auto) 0.12 K/uL (0.00-0.50); Eosinophils % (auto) 1.4 %; Hematocrit (blood only) 24.9 % (42.0-52.0); Hemoglobin 7.8 g/dl (14.0-18.0); Immature Granulocytes # (auto) 0.29 K/uL (0.01-0.20); Immature Granulocytes % (auto) 3.5 %; Lymphocytes % (auto) 14.4 %; Mean Corpuscular Hemoglobin 33.5 pg (25.0-34.0); Mean Corpuscular Hgb Conc 31.3 g/dL (32.0-36.0); Mean Corpuscular Volume 106.9 fL (80.0-100.0); Mean Platelet Volume 9.5 fL (9.4-12.4); Monocytes # (auto) 0.56 K/uL (0.11-0.59); Monocytes % (auto) 6.7 %; Neutrophils # (auto) 6.14 K/uL (1.40-6.50); Neutrophils % (auto) 73.5 %; Nucleated RBC # (auto) 0.03 K/uL (0.00-0.12); Nucleated RBC % (auto) 0.4 %; Platelet Count 334 K/uL (130-400); RDW Coefficient of Variation 15.8 % (11.5-14.5); RDW Standard Deviation 60.5 fL (36.4-46.3); Red Blood Count 2.33 M/uL (4.70-6.10); White Blood Count 8.35 K/ul (4.8-10.8)
[2023-08-31 06:04] LABS: Albumin Level 3.2 gm/dl (3.4-5.0); Calcium 8.1 mg/dl (8.6-10.3); Potassium 3.8 mmol/L (3.5-5.1)
[2023-08-31 06:11] LABS: ANTI-Xa, UFH(UnfractionatedHep < 0.10 IU/ml (0.3-0.7)
[2023-08-31 06:14] LABS: BUN Creatinine Ratio 23.9 (10-20); Creatinine Clr Calc Pharmacy 19.6 ml/min; Est GFR (African American) 18.2 ml/min; Est GFR (Non-African American) 15.7 ml/min; Phosphorus 4.2 mg/dl (2.5-4.9)
[2023-08-31 06:15] LABS: INR 1.6 (0.9-1.1); Prothrombin Time 17.4 Seconds (9.0-12.0)
[2023-08-31 06:50] LABS: Polychromasia 1+
--- NOTE | 2023-08-31 13:56 | Nephrology Progress Note ---
Date of Service August 31, 2023 Assessment & Plan (1) Acute kidney injury superimposed on chronic kidney disease: (2) Anemia: (3) Acidosis: (4) Kidney replaced by transplant: Plan 58-year-old gentleman with stage IV CKD with allograft dysfunction, baseline creatinine lately around 3-3.3 mg/dl with high-grade proteinuria, admitted with several days history of diarrhea, shortness of breath and noted to have multifocal pneumonia and acute kidney injury with volume depletion. Slight improvement in BUN and creatinine noted. Potassium normal. Bicarb still low on sodium bicarbonate. Hemoglobin remains low, has adequate iron store. Received Epogen 20,000 units x 1 dose on 08/30/23 --Continue on azathioprine and prednisone current dose --Continue sodium bicarbonate 650 mg 2 tabs twice a day, Renvela 1 tab 3 times daily with meal. --suggest IV NS prior to cardiac cath to minimize DAVID. No acute indication for renal replacement therapy but Mr. Mena knows that there is high likelihood that he reached end-stage kidney disease and he will need dialysis in near future if not even during this admission especially if he needs cardiac cath. --rt arm Nephrology precaution Admission and Anticipated Discharge Date Admission Date: August 28, 2023 Juliana Huerta was seen and evaluated today. Overall he has been feeling well, denies chest pain. Blood pressure has been stable. Heart rate improved and staying about 50. Slight improvement in kidney function noted, cr down to 3.9. Decent urine output. Hb improved to 7.8 Review of Systems Review of Systems: All systems reviewed & are unremarkable except as noted in Subjective Physical Exam Constitutional: WD/WN, vitals as above no acute distress Eyes: + anicteric sclerae Neck: normal visual inspection Respiratory: no respiratory distress Auscultation: lungs clear to auscultation bilaterally; no crackles and no wheezes Cardiovascular: Rate/Rhythm: regular rhythm and + bradycardic Heart Sounds: normal S1 and normal S2 Extremities: no edema Musculoskeletal: Extremities: extremities normal to inspection Skin: no rashes, warm and dry Neurologic: no focal motor deficits Psychiatric: Orientation: alert and oriented x 3 Affect: euthymic affect Results & Data Vital Signs (Past 12 Hours) Vital Signs Temp Pulse Resp BP Pulse Ox O2 Del Method 08/31/23 11:45 37.1 C 51 L 16 133/71 97 Room Air 08/31/23 09:23 36.8 C 52 L 16 134/79 97 Room Air 08/31/23 07:30 Room Air 08/31/23 02:43 36.6 C 49 L 16 142/78 H 96 Room Air PG Care Time/CCT Total # of Minutes Spent Total Time Spent with Patient: Total time spent is greater than 50% in coordination of care (as documented) at patient's floor/unit and/or counseling patient: Coding Level of Care Code 72911 SUB INP/OBS CARE 2/35MIN Diagnoses Acute kidney injury superimposed on chronic kidney disease N17.9; N18.9 Anemia D64.9 Acidosis E87.20 Kidney replaced by transplant Z94.0
--- NOTE | 2023-08-31 14:02 | Cardiology Progress Note ---
Date of Service August 31, 2023 Assessment & Plan (1) Type 2 MA (myocardial infarction): Plan: There is a high pretest probability of the patient has underlying occlusive coronary disease. I suspect that he has RCA involvement which would correlate with his right bundle branch block, wall motion abnormality noted on echo, and potentially his bradycardia. However, this does not appear to be ACS. This is a global demand ischemia from anemia, pneumonia, and high-grade renal insufficiency. As such, there is no urgency for catheterization with regard to ACS. Guideline directed medical therapy for secondary prevention of coronary disease is recommended for presumptive CAD. Unfortunately, we will not be able to provide him beta-macy because of the bradycardia. He may take low-dose aspirin, high intensity statin therapy but is also not currently appropriate for LAURIE inhibitor/ARB. Definitive evaluation by coronary angiography using a limited IVP contrast is recommended in the near future either during this admission or within the next few weeks as an outpatient. He is discussing further with family. (2) Bradycardia: Plan: Patient has not had any beta-blockers. He remains bradycardic although he seems to be asymptomatic. May be secondary to underlying ischemic coronary disease or may represent conduction system disease. There is a fairly good chance that he will require pacemaker implantation in the near future. (3) Preoperative cardiovascular examination: Plan: Currently the patient would be considered high risk for general anesthesia, particularly in light of his elevated troponins and unknown coronary artery disease status. We will need to perform coronary angiography to complete risk stratification. If he requires PCI we would do that in a staged manner to limit IVP contrast dose at any given time. Stenting would delay any planned surgery but would be durable to reduce cardiovascular risk of surgical procedure. Plan I will tentatively plan for catheterization tomorrow. He will notify me if he has decided in conjunction with his family to delay catheterization to another time. Admission and Anticipated Discharge Date Admission Date: August 28, 2023 Subjective Patient doing well. No chest pain or shortness of breath. Stool occult blood was positive. Patient informs me that this whole admission was because of abnormal EKG found preoperatively for planned hemorrhoid surgery. We discussed the risks of cardiac catheterization. Of specific concern for this patient is the low H&H, risk of GI bleed with known bleeding source, potential for occult bleeding source, and need for antiplatelets in addition to his anticoagulant if we were to proceed with PCI. Another specific concern is his worsened renal function. There is a fair chance he will be on dialysis at some point in the near future given his significant decline in renal function. However, excessive IVP contrast may accelerate that decline. He understands all of this. He wishes to discuss further with his . We have agreed to tentatively place him on the cath schedule for tomorrow but I also assured him that we could do this as an outpatient at any point he wished. He understands that it would be unlikely that he would be able to undergo hemorrhoid surgery or any other surgeries until he has had coronary angiography. Review of Systems Review of Systems: Negative except as per HPI Physical Exam Constitutional: Middle-aged, chronically ill-appearing. No acute distress. Eyes: Extraocular muscles intact. Sclera are anicteric. ENMT: Oral mucosa is pink and dry Neck: No JVD or bruits appreciated Respiratory: Fair air movement. No crackles, wheezing, or rhonchi. Cardiovascular: Bradycardic rate, regular rhythm. Grade 2/6 systolic murmur. No edema. Left upper extremity fistula without pulse/thrill. Right radial pulse is palpable. Musculoskeletal: no cyanosis or clubbing, extremities motor strength 5/5 Neurologic: Cognition is intact. Speech is fluent. No focal deficits. No tremor. Psychiatric: A+Ox3, euthymic affect Results & Data Vital Signs (Past 12 Hours) Vital Signs Temp Pulse Resp BP Pulse Ox O2 Del Method 08/31/23 11:45 37.1 C 51 L 16 133/71 97 Room Air 08/31/23 09:23 36.8 C 52 L 16 134/79 97 Room Air 08/31/23 07:30 Room Air 08/31/23 02:43 36.6 C 49 L 16 142/78 H 96 Room Air PG Care Time/CCT Total # of Minutes Spent Total Time Spent with Patient: Total time spent is greater than 50% in coordination of care (as documented) at patient's floor/unit and/or counseling patient: Coding Level of Care Code 32485 SUB INP/OBS CARE 2/35MIN Diagnoses Type 2 MA (myocardial infarction) I21.A1 Bradycardia R00.1 Preoperative cardiovascular examination Z01.810
[2023-08-31] MEDS: ENOXAPARIN INJ 30 MG/0.3 ML SYR SQ ONE (16:09)
[2023-08-31 19:08] LABS: Base Excess VBG -5.8 mEq/L; HCO3 VBG 20 mmol/L; Oxygen Saturation VBG < 60.0 %; PCO2 VBG 37 mmHg (38-50); PO2 VBG 24 mmHg; pH VBG 7.33 (7.36-7.41)
[2023-08-31 19:23] LABS: Hematocrit (blood only) 26.6 % (42.0-52.0); Hemoglobin 8.2 g/dl (14.0-18.0)
[2023-08-31 19:47] LABS: Calcium 8.6 mg/dl (8.6-10.3); Potassium 4.3 mmol/L (3.5-5.1)
[2023-08-31 19:53] LABS: BUN Creatinine Ratio 20.5 (10-20); Creatinine Clr Calc Pharmacy 19.5 ml/min; Est GFR (African American) 18.1 ml/min; Est GFR (Non-African American) 15.6 ml/min
--- NOTE | 2023-08-31 22:03 | Hospitalist Progress Note ---
Date of Service August 31, 2023 Assessment & Plan (1) Multifocal pneumonia: Plan: Symptoms began 08/24, immunosuppressed with azathioprine for renal transplant Procalcitonin WNL, COVID, RSV, flu negative CXR suggests multifocal pneumonia Blood cultures , negative to date MRSA swab negative not acting like pneumonia with non productive cough, will check non con chest CT send pjp pcr, consider asking pulmonary eval pending the CT results Zosyn 4.5mg IV q12h Doxycycline 100 mg IV BID Patient on room air. will continue to monitor. HOld pulmonary consult for now. (2) Type 2 SD (myocardial infarction): Plan: Clinically, patient denies chest pain, left arm pain, and left jaw pain/pressure Bradycardia , worsened baseline changes with inferior wall changes, concern for IWMI Echo with depressed EF from 07/15. perhaps Inferior wall hypokinesis Troponin grossly elevated at 10,072.9-->7439 Per cardiology: patient will require a catheterization, Cath scheduled for 08/31 tenative on HGB abd Cr Heparin low-dose without bolus started in the ED BNP markedly elevated at 4669, however now with acute renal failure (3) Kidney replaced by transplant: Plan: Hx of renal transplant in 1979 Continue prednisone, consider stress dosing Per nephrology, okay to continue azathioprine (4) Acute kidney injury superimposed on chronic kidney disease: Plan: Per patient, poor oral intake and GI losses since 08/24 Avoid nephrotoxic agents Hold lisinopril Will provide patient with small boluses of 500 mL of IVF at this time and trend BMP Nephrology consulted (5) Anemia: Plan: Hgb 9.2 and HCT 29.1 on arrival; may be secondary to acute on chronic CKD Clinically, patient endorses some dizziness with standing In the setting of type II SD, transfuse to hemoglobin target >8 g/dL Hx of blood transfusion approximately 10 years ago Concern with transfusion and possible need for future transplant, trying to be conservative, did have epo 08/30 per nephrolgy Blood informed consent obtained 2 units PRBCs ordered; (6) History of DVT (deep vein thrombosis): Plan: Patient normally takes warfarin; Hold warfarin Heparin low-dose without bolus started in the ED Repeat a.m. PT/INR (7) Hypercholesterolemia: Plan: Continue atorvastatin Hold gemfibrozil due to kidney function Plan DNR/DNI VTE PPx: Heparin low-dose w/o bolus (platelets okay at 432) Admission and Anticipated Discharge Date Admission Date: August 28, 2023 Subjective Patient asking to be discharged soon. Review of Systems Review of Systems: All systems reviewed & are unremarkable except as noted in HPI & below Physical Exam Physical Exam: Patient is comfortable cardiac RRR lungs are diminished at the bases. abd: soft slightly distended Results & Data Results & Data Vital Signs (Past 12 Hours) Vital Signs Temp Pulse Resp BP Pulse Ox O2 Del Method 08/31/23 19:14 36.7 C 51 L 20 139/81 97 Room Air 08/31/23 16:28 36.9 C 63 18 149/92 H 96 Room Air 08/31/23 14:13 36.8 C 54 L 18 135/76 99 Room Air 08/31/23 11:45 37.1 C 51 L 16 133/71 97 Room Air PG Care Time/CCT Total # of Minutes Spent Total Time Spent with Patient: Total time spent is greater than 50% in coordination of care (as documented) at patient's floor/unit and/or counseling patient: Coding Level of Care Code 15249 SUB INP/OBS CARE 2/35MIN Diagnoses Multifocal pneumonia J18.9 Type 2 SD (myocardial infarction) I21.A1 Kidney replaced by transplant Z94.0 Acute kidney injury superimposed on chronic kidney disease N17.9; N18.9 Anemia D64.9 History of DVT (deep vein thrombosis) Z86.718 Hypercholesterolemia E78.00
[2023-09-01 06:01] LABS: Basophils # (auto) 0.04 K/uL (0.00-0.20); Basophils % (auto) 0.5 %; Eosinophils % (auto) 1.2 %; Hematocrit (blood only) 24.2 % (42.0-52.0); Hemoglobin 7.7 g/dl (14.0-18.0); Immature Granulocytes # (auto) 0.33 K/uL (0.01-0.20); Immature Granulocytes % (auto) 3.9 %; Lymphocytes # (auto) 1.22 K/uL (1.20-3.40); Lymphocytes % (auto) 14.3 %; Mean Corpuscular Hemoglobin 34.2 pg (25.0-34.0); Mean Corpuscular Hgb Conc 31.8 g/dL (32.0-36.0); Mean Corpuscular Volume 107.6 fL (80.0-100.0); Mean Platelet Volume 9.5 fL (9.4-12.4); Monocytes # (auto) 0.65 K/uL (0.11-0.59); Monocytes % (auto) 7.6 %; Neutrophils % (auto) 72.5 %; Nucleated RBC # (auto) 0.06 K/uL (0.00-0.12); Nucleated RBC % (auto) 0.7 %; Platelet Count 309 K/uL (130-400); RDW Coefficient of Variation 15.9 % (11.5-14.5); RDW Standard Deviation 61.1 fL (36.4-46.3); Red Blood Count 2.25 M/uL (4.70-6.10); White Blood Count 8.54 K/ul (4.8-10.8)
[2023-09-01 06:22] LABS: Albumin Level 2.9 gm/dl (3.4-5.0); BUN Creatinine Ratio 19.5 (10-20); Calcium 8.1 mg/dl (8.6-10.3); Creatinine Clr Calc Pharmacy 19.3 ml/min; Est GFR (Non-African American) 15.5 ml/min; Potassium 4.1 mmol/L (3.5-5.1)
[2023-09-01 07:40] LABS: Polychromasia 2+; Tear Drop Cells 1+
--- NOTE | 2023-09-01 11:01 | Nephrology Progress Note ---
Date of Service September 01, 2023 Assessment & Plan (1) Acute kidney injury superimposed on chronic kidney disease: (2) Anemia: (3) Acidosis: (4) Kidney replaced by transplant: (5) Bradycardia: Plan 58-year-old gentleman with stage IV CKD with allograft dysfunction, baseline creatinine lately around 3-3.3 mg/dl with high-grade proteinuria, admitted with several days history of diarrhea, shortness of breath and noted to have multifocal pneumonia and acute kidney injury with volume depletion. On admission noted to be bradycardic with heart rate dropping below 40, has been off of beta-macy and slowly heart rate improved to above 50. Troponin was significantly elevated suggesting acute coronary event although did not have any chest pain and clinically otherwise has been doing well and stable. Kidney function staying relatively stable with a creatinine around 4.0 mg/dl over last 2 days, potassium normal. Bicarb still low on sodium bicarbonate. Hemoglobin relatively stable around 7.8-8.2., has adequate iron store. Received Epogen 20,000 units x 1 dose on 08/30/23. Plan for diagnostic cardiac cath this morning. --Continue on azathioprine and prednisone current dose --Continue sodium bicarbonate 650 mg 2 tabs twice a day, Renvela 1 tab 3 times daily with meal. --suggest IV NS prior to cardiac cath to minimize DAVID. Will continue to monitor kidney function after cath. --Do not see any indication for blood transfusion at this time however, if hemoglobin drops further, okay to consider PRBC. Will give another dose of Epogen tomorrow --rt arm Nephrology precaution Admission and Anticipated Discharge Date Admission Date: August 28, 2023 Juliana Huerta was seen and evaluated this morning. Overall he feels well, denies any symptoms. Blood pressure stable, p.o. intake has been decent. Heart rate improved and staying above 50. Kidney function staying stable with creatinine around 4.0 mg/dl. Hemoglobin was 7.8 Review of Systems Review of Systems: Detailed review of system was done, pertinent positives and negatives are mentioned above. Physical Exam Constitutional: WD/WN, vitals as above no acute distress Eyes: + anicteric sclerae Neck: normal visual inspection Respiratory: no respiratory distress Auscultation: lungs clear to auscultation bilaterally; no crackles and no wheezes Cardiovascular: Rate/Rhythm: regular rhythm and + bradycardic Heart Sounds: normal S1 and normal S2 Extremities: no edema Musculoskeletal: Extremities: extremities normal to inspection Skin: no rashes, warm and dry Neurologic: no focal motor deficits Psychiatric: Orientation: alert and oriented x 3 Affect: euthymic affect Results & Data Vital Signs (Past 12 Hours) Vital Signs Temp Pulse Resp BP Pulse Ox O2 Del Method 09/01/23 07:57 36.9 C 55 L 18 138/77 98 Room Air 09/01/23 02:48 36.8 C 63 18 124/73 96 Room Air PG Care Time/CCT Total # of Minutes Spent Total Time Spent with Patient: Total time spent is greater than 50% in coordination of care (as documented) at patient's floor/unit and/or counseling patient: Coding Level of Care Code 37336 SUB INP/OBS CARE 2/35MIN Diagnoses Acute kidney injury superimposed on chronic kidney disease N17.9; N18.9 Anemia D64.9 Acidosis E87.20 Kidney replaced by transplant Z94.0 Bradycardia R00.1
[2023-09-01] MEDS: HEPARIN (PORCINE) 1000 UNIT/ML 10 ML (CATH LAB USE ONLY) ONE (12:55)
[2023-09-01] MEDS: diphenhydrAMINE 50 MG/ML VIAL ONE (12:56)
[2023-09-01] MEDS: OPTIRAY 350 ONE (12:57)
[2023-09-01] MEDS: niCARdipine HCL INJ 2.5 MG/ML 10 ML AMP ONE (12:57)
[2023-09-01] MEDS: NITROGLYCERIN/D5W 100MCG/ML 20ML SYR ONE (12:57)
[2023-09-01] MEDS: fentaNYL citrate PF 100 MCG/2 ML VIAL ONE (12:58)
[2023-09-01] MEDS: MIDAZOLAM HCL 1 MG/ML 2ML VIAL ONE (13:00)
--- NOTE | 2023-09-01 16:29 | Pre Anesthesia Assessment ---
Date of Service September 01, 2023 Pre Sedation Assessment Vital Signs Temp Pulse Pulse Pulse Resp BP BP 09/01/23 14:23 36.9 C 53 L 19 111/79 09/01/23 13:17 56 L 14 105/71 09/01/23 13:10 64 14 109/77 09/01/23 12:19 66 18 164/84 H 09/01/23 11:17 36.9 C 65 19 131/84 09/01/23 07:57 36.9 C 55 L 18 138/77 09/01/23 02:48 36.8 C 63 18 124/73 08/31/23 22:48 36.5 C 51 L 20 116/57 L 08/31/23 22:00 68 08/31/23 19:14 36.7 C 51 L 20 139/81 Pulse Ox O2 Del Method 09/01/23 14:23 100 Room Air 09/01/23 13:17 94 Room Air 09/01/23 13:10 94 Room Air 09/01/23 12:19 97 Room Air 09/01/23 11:17 96 Room Air 09/01/23 07:57 98 Room Air 09/01/23 02:48 96 Room Air 08/31/23 22:48 97 Room Air 08/31/23 22:00 08/31/23 19:14 97 Room Air Cardiovascular RRR, no murmur, no edema Respiratory normal respiratory effort, lungs clear to auscultation Pre-Sedation Airway Assessment Smoking Status: Never smoker Hx Sleep Apnea: No Short, Thick Neck: No Thyromental Distance: > or= 3.5 Finger Breadths Oral Cavity: + WNL Mallampati Class: III ASA: ASA4 NPO Status Date of Last Intake of Fluids: 09/01/23 Time of Last Intake of Fluids: 07:00 Date of Last Intake of Solid Food: 08/31/23 Time of Last Intake of Solid Foods: 17:30 Notes The planned sedation has been discussed with the patient. Informed Consent was obtained. I have identified the patient, determined the appropriateness of sedation and have assessed the patient immediately prior to the procedure. All medicine(s) and interventions are by my order.
--- NOTE | 2023-09-01 16:33 | Post Anesthesia Assessment ---
Date of Service September 01, 2023 Post Sedation Assessment Vital Signs Temp Pulse Pulse Pulse Resp BP BP 09/01/23 14:23 36.9 C 53 L 19 111/79 09/01/23 13:17 56 L 14 105/71 09/01/23 13:10 64 14 109/77 09/01/23 12:19 66 18 164/84 H 09/01/23 11:17 36.9 C 65 19 131/84 09/01/23 07:57 36.9 C 55 L 18 138/77 09/01/23 02:48 36.8 C 63 18 124/73 08/31/23 22:48 36.5 C 51 L 20 116/57 L 08/31/23 22:00 68 08/31/23 19:14 36.7 C 51 L 20 139/81 Pulse Ox O2 Del Method 09/01/23 14:23 100 Room Air 09/01/23 13:17 94 Room Air 09/01/23 13:10 94 Room Air 09/01/23 12:19 97 Room Air 09/01/23 11:17 96 Room Air 09/01/23 07:57 98 Room Air 09/01/23 02:48 96 Room Air 08/31/23 22:48 97 Room Air 08/31/23 22:00 08/31/23 19:14 97 Room Air Recovery Score Activity: Moves 4 extremities Respiration: Deep Breath/Cough Circulation: +/-20% PreAnes Value Consciousness: Fully Awake Post Anesthesia Score: 8 Discharge Sedation Level of Care: Fast Track Phase II Post Sedation Plan On clinical assessment, the patient appears to have tolerated the sedation without complications. Patient is recovering as anticipated. Patient will continue to be monitored by nursing and may be discharged when sedation discharge criteria are met per below protocol. Upon Completions of procedure up to 15 minutes continue every 5 minute vital signs and the P.A.R. score; then discharge to a Phase I or Fast Track to Phase II per the following guidelines: * Discharge Patient to appropriate Phase II area if PAR is 8 or greater or return to pre- procedure baseline. The post - procedure orders will be as directed. * If PAR score is less than 8 or not return to pre-procedure baseline then patient will follow Phase I monitoring till PAR is reached for Phase II. The Phase I may be done in procedure room or may call to secure a Phase I area. * If naloxone or flumazenil are used for reversal, hold in Phase I for continued monitoring from when last reversal dose was given for a minimum of 60 minutes or longer pending the nurse and/or physician discretion of patient condition before discharge to Phase II. Please call the Sedation Physician to re-evaluate and complete post-note for discharge to Phase II area. Do NOT discharge from procedure sedation or Phase 1 until post- sedation evaluation note is complete by procedure /sedation MD Sedation Discharge Instructions to be given to the patient at discharge to home. [facility] Procedure Codes (Charges) Indication for Procedure Indication for procedure: NSTEMI Sedation/Anesthesia Procedure 1: Sedation/Anesthesia: 42475 Mod Sedation by the same physician;Init15 Min Child Age 5 & Up (Initial 15 min, start 1246 end 1259) Total Sedation Time (minutes): 13
--- NOTE | 2023-09-01 16:34 | Post Anesthesia Assessment ---
Date of Service September 01, 2023 Post Sedation Assessment Vital Signs Temp Pulse Pulse Pulse Resp BP BP 09/01/23 14:23 36.9 C 53 L 19 111/79 09/01/23 13:17 56 L 14 105/71 09/01/23 13:10 64 14 109/77 09/01/23 12:19 66 18 164/84 H 09/01/23 11:17 36.9 C 65 19 131/84 09/01/23 07:57 36.9 C 55 L 18 138/77 09/01/23 02:48 36.8 C 63 18 124/73 08/31/23 22:48 36.5 C 51 L 20 116/57 L 08/31/23 22:00 68 08/31/23 19:14 36.7 C 51 L 20 139/81 Pulse Ox O2 Del Method 09/01/23 14:23 100 Room Air 09/01/23 13:17 94 Room Air 09/01/23 13:10 94 Room Air 09/01/23 12:19 97 Room Air 09/01/23 11:17 96 Room Air 09/01/23 07:57 98 Room Air 09/01/23 02:48 96 Room Air 08/31/23 22:48 97 Room Air 08/31/23 22:00 08/31/23 19:14 97 Room Air Recovery Score Activity: Moves 4 extremities Respiration: Deep Breath/Cough Circulation: +/-20% PreAnes Value Consciousness: Fully Awake Post Anesthesia Score: 8 Discharge Sedation Level of Care: Fast Track Phase II Post Sedation Plan On clinical assessment, the patient appears to have tolerated the sedation without complications. Patient is recovering as anticipated. Patient will continue to be monitored by nursing and may be discharged when sedation discharge criteria are met per below protocol. Upon Completions of procedure up to 15 minutes continue every 5 minute vital signs and the P.A.R. score; then discharge to a Phase I or Fast Track to Phase II per the following guidelines: * Discharge Patient to appropriate Phase II area if PAR is 8 or greater or return to pre- procedure baseline. The post - procedure orders will be as directed. * If PAR score is less than 8 or not return to pre-procedure baseline then patient will follow Phase I monitoring till PAR is reached for Phase II. The Phase I may be done in procedure room or may call to secure a Phase I area. * If naloxone or flumazenil are used for reversal, hold in Phase I for continued monitoring from when last reversal dose was given for a minimum of 60 minutes or longer pending the nurse and/or physician discretion of patient condition before discharge to Phase II. Please call the Sedation Physician to re-evaluate and complete post-note for discharge to Phase II area. Do NOT discharge from procedure sedation or Phase 1 until post- sedation evaluation note is complete by procedure /sedation MD Sedation Discharge Instructions to be given to the patient at discharge to home. [facility] Procedure Codes (Charges) Indication for Procedure Indication for procedure: NSTEMI Sedation/Anesthesia Procedure 1: Sedation/Anesthesia: 46741 Mod Sedation by the same physician;Init15 Min Child Age 5 & Up (Initial 15 min, start time 1246, end time 1259) Total Sedation Time (minutes): 13
--- NOTE | 2023-09-01 16:40 | Cardiac Catheterization ---
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 Cardiac Status Clinical evaluation leading to the procedure CAD Presenation: Non STEMI Anginal Classification: No Symptoms Heart Failure: NYHA Class: CCS III Cardiogenic Shock within 24 Hours: No Cardiac Arrest within 24 Hours: No Imaging Studies Past 6 Months: Yes Stress Studies Past 6 Months: No Coronary Anatomy Dominant: Right Left Main (% Stenosis): Normal LAD (% Stenosis): Proximal (Mild less than 30%), Mid (80 to 90% focal calcified) and Distal (Long eccentric 70% calcified) D1 (% Stenosis): Ostial (Ostial to proximal 70 to 80%) Circumflex (% Stenosis): Normal OM1 (% Stenosis): Proximal (50%) and Mid (50%) L PL1 (% Stenosis): Normal RCA (% Stenosis): Proximal (Calcified 40%) and Mid (99% with thrombus) R PDA (% Stenosis): Normal R PL1 (% Stenosis): Normal Diagnostic Physicians Name: Tha Tran MD, PhD Closure Device Percutaneous Entry Location: Radial Closure Device: Radial Band Recommendations: PCI without planned CABG Cardiac Cath Procedure Full Procedure Date September 01, 2023 Pre-Procedure Diagnosis Pre-Procedure Diagnosis: Non STEMI AUC Score AUC Score: 07 Post-Procedure Diagnosis Post-Procedure Diagnosis: Severe CAD Procedure(s) Performed Procedure(s) Performed: Coronary Angiography and Ultrasound Guided Vascular Access Medical Scientific Liaison Tha Tran MD, PhD Estimated Blood Loss Estimated Blood Loss: 10 mL Medication(s) Medication(s): Fentanyl, Lidocaine 1%, Nicardipine, Nitroglycerin and Versed Summary of Findings Brief description: Patient was brought to cardiac catheterization suite where he was shaved and prepped in a sterile fashion. Sedated using IV Versed and fentanyl. Soft tis sues of the right wrist were anesthetized using 2 mL of 1% Xylocaine. Using the ultrasound for guidance, the right radial artery was accessed and a 6 [place] radial artery glide sheath was placed. All catheters were advanced and exchanged over a 0.035 J-tip wire. Patient was provided antispasmodics including nicardipine and nitroglycerin. Right coronary angiography was performed in orthogonal views with a 5 [place] 4 diagnostic catheter. Left coronary angiography was performed in orthogonal views with a 5 [place] JL 3.5 diagnostic catheter. Diagnostic catheters were removed. Radial artery sheath was removed. Hemostasis was obtained using the TR band. Patient remained hemodynamically stable and asymptomatic. He was returned to the recovery area. This ended the case. Coronary angiography findings: [id number] vessel bifurcating into LAD and circumflex. No angiographically significant disease. PRY-gsfsy-vfsgaev vessel. Proximal segment has mild disease. It provides a first diagonal which has ostial to proximal 70 to 80% stenosis and then branches. It appears to be medium caliber. The mid LAD has 80 to 90% calcified disease. Distally there is a long eccentric stenosis of 70% which is moderately calcified. ZEp-menee-pkwchtd and nondominant. Travels in the AV groove. Proximal segment is short and provides a large caliber branching OM1. This vessel has proximal and mid 50% stenosis. Circumflex continues in the midsegment providing an atrial branch and then provides a medium to large caliber multi branching posterolateral. Posterior lateral has scattered mild less than 30% stenosis. The distal AV groove circumflex is small in caliber and then terminates. CCB-oougj-vbmbrcm and dominant. It is moderately to severely calcified. Proximally there is mild diffuse 40% stenosis. The mid segment has a focal 99% stenosis which appears to harbor some thrombus. Distally the vessel has luminal irregularities and then bifurcates into a large PDA and a large multi branching posterolateral. These branch vessels have no angiographically significant disease. Summary: 1. Severe two-vessel coronary disease. The RCA is the culprit for recent non- ST elevation MD. The LAD appears more chronic. 2. Recommend that the patient undergo staged PCI. Would first address the RCA. The LAD will likely require at least intracoronary lithotripsy but the shockwave balloon. It may require rotational atherectomy. 3. We will allow the patient's kidney function to stabilize post diagnostic coronary angiography. We will add low volume normal saline infusion. Reassess renal function over the next 48 hours. 4. If renal function stable or improved would plan for inpatient PCI of the RCA on Monday. The LAD would be staged as an outpatient procedure. Hemodynamics Rest Ao:: 132/76 mmHg Final Ao: 109/67 mmHg LV: Not performed Recommendations Recommendations: PCI without planned CABG Radiation Exposure (mGy) 943 mGy, fluoroscopy time 2.7 minutes Contrast (mls) 60 mL Anesthesia 2 mg Versed, 50 mcg fentanyl IV. Start time 1246, end time 1259 Procedural Complication(s) None Disposition Process Tank Tender Holding/Recovery I attest to the content of the Intraoperative Record and any orders documented therein. Any exceptions are noted below. [facility] Card Cath Procedure Codes Cardiac Catheterization Procedure 1: Cardiovascular Cath Procedures: 79129 Coronaries Therapeutic Services & Ancillary Procedure 1: Cardiovascular Tx and Anc Procedures: 69492 Ultrasonic Guidance Vascular Access Moderate Sedation Procedure 1: Sedation/Anesthesia: 92758 Mod Sedation by the same physician;Init15 Min Child Age 5 & Up (Start 1246, end 1259) PG Care Time/CCT Total # of Minutes Spent Total Time Spent with Patient: Total time spent is greater than 50% in coordination of care (as documented) at patient's floor/unit and/or counseling patient:
[2023-09-01] MEDS: SODIUM CHLORIDE 0.9% 1,000 ML IV SCH (18:30)
[2023-09-01] MEDS: ENOXAPARIN INJ 30 MG/0.3 ML SYR SQ SCH (19:31)
--- NOTE | 2023-09-01 21:00 | Hospitalist Progress Note ---
Date of Service September 01, 2023 Assessment & Plan (1) Multifocal pneumonia: Plan: Symptoms began 08/24, immunosuppressed with azathioprine for renal transplant Procalcitonin WNL, COVID, RSV, flu negative CXR suggests multifocal pneumonia Blood cultures , negative to date MRSA swab negative not acting like pneumonia with non productive cough, will check non con chest CT send pjp pcr, consider asking pulmonary eval pending the CT results Zosyn 4.5mg IV q12h Doxycycline 100 mg IV BID Patient on room air. will continue to monitor. HOld pulmonary consult for now. (2) Type 2 OH (myocardial infarction): Plan: Clinically, patient denies chest pain, left arm pain, and left jaw pain/pressure Bradycardia , worsened baseline changes with inferior wall changes, concern for IWMI Echo with depressed EF from 07/15. perhaps Inferior wall hypokinesis Troponin grossly elevated at 10,072.9-->7439 Per cardiology: patient will require a catheterization, Cath scheduled for 08/31 tenative on HGB abd Cr stent placemenyt for 09/04 Heparin low-dose without bolus started in the ED BNP markedly elevated at 4669, however now with acute renal failure (3) Kidney replaced by transplant: Plan: Hx of renal transplant in 1979 Continue prednisone, consider stress dosing Per nephrology, okay to continue azathioprine (4) Acute kidney injury superimposed on chronic kidney disease: Plan: Per patient, poor oral intake and GI losses since 08/24 Avoid nephrotoxic agents Hold lisinopril Will provide patient with small boluses of 500 mL of IVF at this time and trend BMP Nephrology consulted (5) Anemia: Plan: Hgb 9.2 and HCT 29.1 on arrival; may be secondary to acute on chronic CKD Clinically, patient endorses some dizziness with standing In the setting of type II OH, transfuse to hemoglobin target >8 g/dL Hx of blood transfusion approximately 10 years ago Concern with transfusion and possible need for future transplant, trying to be conservative, did have epo 08/30 per nephrolgy Blood informed consent obtained 2 units PRBCs ordered; (6) History of DVT (deep vein thrombosis): Plan: Patient normally takes warfarin; Hold warfarin Heparin low-dose without bolus started in the ED Repeat a.m. PT/INR (7) Hypercholesterolemia: Plan: Continue atorvastatin Hold gemfibrozil due to kidney function Plan DNR/DNI VTE PPx: Heparin low-dose w/o bolus (platelets okay at 432) Admission and Anticipated Discharge Date Admission Date: August 28, 2023 Subjective Patient reports no new symptoms. Review of Systems Review of Systems: All systems reviewed & are unremarkable except as noted in HPI & below Physical Exam Physical Exam: Patient is comfortable cardiac RRR abd: soft slightly distended Results & Data Results & Data Vital Signs (Past 12 Hours) Vital Signs Temp Pulse Pulse Pulse Resp BP BP 09/01/23 19:18 36.9 C 74 18 167/75 H 09/01/23 17:23 36.8 C 62 16 102/64 09/01/23 17:20 65 0 L 09/01/23 17:10 52 L 5 L 09/01/23 17:00 70 10 L 09/01/23 16:50 69 7 L 09/01/23 16:40 73 11 L 09/01/23 16:30 55 L 8 L 09/01/23 16:23 36.7 C 55 L 18 107/65 09/01/23 16:20 50 L 8 L 09/01/23 16:10 50 L 2 L 09/01/23 16:00 51 L 5 L 09/01/23 15:50 56 L 4 L 09/01/23 15:48 53 L 14 09/01/23 14:23 36.9 C 53 L 19 111/79 09/01/23 13:17 56 L 14 105/71 09/01/23 13:10 64 14 109/77 09/01/23 12:19 66 18 164/84 H 09/01/23 12:02 56 L 0 L 09/01/23 11:17 36.9 C 65 19 131/84 Pulse Ox O2 Del Method 09/01/23 19:18 96 Room Air 09/01/23 17:23 95 Room Air 09/01/23 17:20 09/01/23 17:10 09/01/23 17:00 09/01/23 16:50 09/01/23 16:40 09/01/23 16:30 09/01/23 16:23 Room Air 09/01/23 16:20 09/01/23 16:10 09/01/23 16:00 09/01/23 15:50 09/01/23 15:48 09/01/23 14:23 100 Room Air 09/01/23 13:17 94 Room Air 09/01/23 13:10 94 Room Air 09/01/23 12:19 97 Room Air 09/01/23 12:02 09/01/23 11:17 96 Room Air PG Care Time/CCT Total # of Minutes Spent Total Time Spent with Patient: Total time spent is greater than 50% in coordination of care (as documented) at patient's floor/unit and/or counseling patient: Coding Level of Care Code 05139 SUB INP/OBS CARE 235MIN Diagnoses Multifocal pneumonia J18.9 Type 2 OH (myocardial infarction) I21.A1 Kidney replaced by transplant Z94.0 Acute kidney injury superimposed on chronic kidney disease N17.9; N18.9 Anemia D64.9 History of DVT (deep vein thrombosis) Z86.718 Hypercholesterolemia E78.00
[2023-09-02 06:15] LABS: Hematocrit (blood only) 26.6 % (42.0-52.0); Hemoglobin 8.3 g/dl (14.0-18.0); Mean Corpuscular Hemoglobin 33.7 pg (25.0-34.0); Mean Corpuscular Hgb Conc 31.2 g/dL (32.0-36.0); Mean Corpuscular Volume 108.1 fL (80.0-100.0); Mean Platelet Volume 9.2 fL (9.4-12.4); Nucleated RBC # (auto) 0.03 K/uL (0.00-0.12); Nucleated RBC % (auto) 0.4 %; Platelet Count 343 K/uL (130-400); RDW Standard Deviation 62.3 fL (36.4-46.3); Red Blood Count 2.46 M/uL (4.70-6.10); White Blood Count 7.95 K/ul (4.8-10.8)
[2023-09-02 06:32] LABS: Albumin Level 3.1 gm/dl (3.4-5.0); BUN Creatinine Ratio 18.5 (10-20); Calcium 7.9 mg/dl (8.6-10.3); Creatinine Clr Calc Pharmacy 21.3 ml/min; Est GFR (African American) 20.2 ml/min; Est GFR (Non-African American) 17.4 ml/min; Phosphorus 3.9 mg/dl (2.5-4.9); Potassium 3.7 mmol/L (3.5-5.1)
--- NOTE | 2023-09-02 11:16 | Cardiology Progress Note ---
Date of Service September 02, 2023 Assessment & Plan (1) Coronary artery disease: Plan: Status postcardiac catheterization. Thus far, no complications from catheterization. Findings demonstrated severe RCA and LAD disease. RCA appears more acute while the LAD is chronic disease. Plan for staged PCI of the each vessel. Patient will undergo PCI of the RCA via the femoral artery approach on Monday. The LAD will be undertaken as an outpatient 1 or [address] We will need to allow for his kidney to recover post RCA PCI. Will load Plavix 300 mg tomorrow evening and ASA 81 mg daily. Beta macy and ACEI/ARB are recommended but currently contraindicated. (2) Bradycardia: Plan: Heart rate now normal after washout of beta-macy. Suspect the RCA stenosis is contributing. Hopefully, post PCI his heart rate will tolerate the addition of beta-macy. If not, at some point he likely needs to be considered for pacemaker. (3) Acute kidney injury superimposed on chronic kidney disease: Plan: Unfortunately it seems that his transplanted kidney is failing. So far he has not required dialysis. I am using all possible caution with regard to nephrotoxic agents. However, the patient's coronary disease is a significant impediment to improving his quality of life at this time. Therefore, I will proceed with PCI of the RCA and later we will need to fix the LAD. He may need dialysis sooner rather than later but it seems fairly obvious that at some point he will need dialysis regardless. Additional recommendations per nephrology. (4) Hypercholesterolemia: Plan: Atherogenic dyslipidemia. High intensity statin therapy is recommended given his high risk. Currently on atorvastatin 20 mg. Recommend increasing that to at least 40 mg daily. (5) Hypertension: Plan: Blood pressure has been high normal to slightly high. He is not currently on any medications for blood pressure. I will recommend using low-dose beta- macy at minimum post PCI and see how his heart rate tolerates. LAURIE inhibitor or angiotensin receptor macy is also recommended from a cardiac standpoint but because of his kidney function not appropriate at this time. If he begins dialysis and it looks like he will remain on dialysis then we could utilize 1 of those medications for blood pressure control and myocardial protection as we certainly could not make his kidney function worse at that point. Plan Plan for PCI of RCA on Monday. Admission and Anticipated Discharge Date Admission Date: August 28, 2023 Subjective Patient reports that he is doing well post catheterization. He denies any chest pain or shortness of breath. No pain at the radial access site. We discussed staged PCI. We also discussed that thus far his renal function has remained stable and his H&H are also currently stable. Tentative plan for PCI on Monday morning. Review of Systems Review of Systems: Negative except as per HPI Physical Exam Constitutional: Middle-aged, chronically ill-appearing. No acute distress. Eyes: Extraocular muscles intact. Sclera are anicteric. ENMT: Oral mucosa is pink and moist Neck: No JVD or bruits appreciated Respiratory: Fair air movement. No crackles, wheezing, or rhonchi. Cardiovascular: regular rate and rhythm. Grade 2/6 systolic murmur. No edema. Right radial access site is clean dry and intact. Good distal perfusion. Musculoskeletal: no cyanosis or clubbing, extremities motor strength 5/5 Neurologic: Cognition is intact. Speech is fluent. No focal deficits. No tremor. Psychiatric: A+Ox3, euthymic affect Results & Data Vital Signs (Past 12 Hours) Vital Signs Temp Pulse Resp BP Pulse Ox O2 Del Method 09/02/23 08:25 36.8 C 69 17 131/84 94 Room Air 09/02/23 04:07 36.8 C 70 16 130/88 97 Room Air 09/01/23 23:08 36.7 C 67 16 149/94 H 97 Room Air PG Care Time/CCT Total # of Minutes Spent Total Time Spent with Patient: Total time spent is greater than 50% in coordination of care (as documented) at patient's floor/unit and/or counseling patient: Coding Level of Care Code 40855 SUB INP/OBS CARE 2/35MIN Diagnoses Coronary artery disease I25.10 Bradycardia R00.1 Acute kidney injury superimposed on chronic kidney disease N17.9; N18.9 Hypercholesterolemia E78.00 Hypertension, unspecified type I10 Hypertension type: unspecified (5) Hypertension Hypertension type: unspecified Qualified Code(s): I10 - Essential (primary) hypertension
--- NOTE | 2023-09-02 11:45 | Nephrology Progress Note ---
Date of Service September 02, 2023 Assessment & Plan (1) Acute kidney injury superimposed on chronic kidney disease: Plan: KELSEA attributed to ATN in the setting of NSTEMI and multifocal pneumonia. Volume status acceptable. Creatinine stable/slightly improved. Electrolytes normal. Medications are appropriate for kidney function. Maintain renal diet. May hold Patiromer. Continue Renvela QAC. Continue NaHCO3 BID. Repeat metabolic profile tomorrow AM. (2) Kidney replaced by transplant: Plan: Baseline creatinine ~3.3 mg/dL. A3 albuminuria. Potential future indications for [employer] reviewed. Continue azathioprine and prednisone at current dose. (3) Anemia: Plan: Hgb stable. Epogen 56395 units provided today. Repeat labs tomorrow AM. Denies signs of continued GI blood loss. (4) Coronary artery disease: Plan: s/p diagnostic cath yesterday. Dr. Tran planning staged procedure for RCA and LAD. Anticipated PCI on Monday. Beta macy held due to symptomatic bradycardia. Asymptomatic currently. (5) ACS (acute coronary syndrome): Plan: Remains on aspirin, Plavix, and Lovenox. Admission and Anticipated Discharge Date Admission Date: August 28, 2023 Subjective No acute events overnight. Bradley is resting comfortably in bed. He denies chest pain or palpitation. No shortness of breath. Some mild edema in the left leg but otherwise no notable fluid retention. Bradley continues to have loose bowel movements but this is improving. He denies hematochezia. Bowels are more formed. He is not experiencing abdominal pain or discomfort. No fevers or chills. Tolerated cardiac catheterization without complications. Review of Systems Review of Systems: All systems reviewed & are unremarkable except as noted in HPI & below Physical Exam Constitutional: well developed; no acute distress Eyes: no scleral abnormality and no corneal abnormality Neck: normal visual inspection and trachea midline Respiratory: normal respiratory effort Auscultation: lungs clear to auscultation bilaterally Cardiovascular: Rate/Rhythm: regular rate Heart Sounds: normal S1 and normal S2 Extremities: no edema Musculoskeletal: Extremities: no cyanosis and no clubbing Skin: normal turgor Neurologic: Motor/Sensory: no tremor and no asterixis Psychiatric: Orientation: alert and oriented x 3 Results & Data Vital Signs (Past 12 Hours) Vital Signs Temp Pulse Resp BP Pulse Ox O2 Del Method 09/02/23 08:25 36.8 C 69 17 131/84 94 Room Air 09/02/23 04:07 36.8 C 70 16 130/88 97 Room Air Laboratory Results Laboratory Results - last 24 hr 09/02/23 05:33 WBC 7.95 RBC 2.46 L Hgb 8.3 L Hct 26.6 L MCV 108.1 H MCH 33.7 MCHC 31.2 L RDW Std Deviation 62.3 H RDW Coeff of Zeus 16.0 H Plt Count 343 MPV 9.2 L Absolute Nucleated RBC 0.03 Nucleated RBC % (auto) 0.4 Sodium 139 Potassium 3.7 Chloride 111 H Carbon Dioxide 17 L Anion Gap 11 BUN 67 H Creatinine 3.62 H D Est Cr Clr Drug Dosing 21.3 Est GFR ( Amer) 20.2 Est GFR (Non-Af Amer) 17.4 BUN/Creatinine Ratio 18.5 Glucose 83 Calcium 7.9 L Phosphorus 3.9 Albumin 3.1 L Beta-(1,3)-D-Glucan Pending B-(1,3)-D-Glucan Intrp Pending Diagnostic Findings Coronary angiography findings: LPX-tsdpy-hfbgmlp vessel bifurcating into LAD and circumflex. No angiographically significant disease. OMS-jbgmv-vpoghkz vessel. Proximal segment has mild disease. It provides a first diagonal which has ostial to proximal 70 to 80% stenosis and then branches. It appears to be medium caliber. The mid LAD has 80 to 90% calcified disease. Distally there is a long eccentric stenosis of 70% which is moderately calcified. YKt-rpsvd-guajnat and nondominant. Travels in the AV groove. Proximal segment is short and provides a large caliber branching OM1. This vessel has proximal and mid 50% stenosis. Circumflex continues in the midsegment providing an atrial branch and then provides a medium to large caliber multi branching posterolateral. Posterior lateral has scattered mild less than 30% stenosis. The distal AV groove circumflex is small in caliber and then terminates. YLN-vczgt-sitygkc and dominant. It is moderately to severely calcified. Proximally there is mild diffuse 40% stenosis. The mid segment has a focal 99% stenosis which appears to harbor some thrombus. Distally the vessel has luminal irregularities and then bifurcates into a large PDA and a large multi branching posterolateral. These branch vessels have no angiographically significant disease. PG Care Time/CCT Total # of Minutes Spent Total Time Spent with Patient: Total time spent is greater than 50% in coordination of care (as documented) at patient's floor/unit and/or counseling patient: Coding Level of Care Code 47761 SUB INP/OBS CARE 3/50MIN Diagnoses Acute kidney injury superimposed on chronic kidney disease N17.9; N18.9 Kidney replaced by transplant Z94.0 Anemia D64.9 Coronary artery disease I25.10 ACS (acute coronary syndrome) I24.9
[2023-09-02] MEDS: EPOETIN ALFA 20,000 UNITS/ML VIAL SQ ONE (11:55)
[2023-09-02] MEDS: PIPERACILLIN/TAZOBACTAM 4.5 GM in DEXTROSE 5% MINI-B 100 ML IV SCH (14:33)
--- NOTE | 2023-09-02 20:46 | Hospitalist Progress Note ---
Date of Service September 02, 2023 Assessment & Plan (1) Multifocal pneumonia: Plan: Symptoms began 08/24, immunosuppressed with azathioprine for renal transplant Procalcitonin WNL, COVID, RSV, flu negative CXR suggests multifocal pneumonia Blood cultures , negative to date MRSA swab negative not acting like pneumonia with non productive cough, will check non con chest CT send pjp pcr, consider asking pulmonary eval pending the CT results Zosyn 4.5mg IV q12h Doxycycline 100 mg IV BID Patient on room air. will continue to monitor. HOld pulmonary consult for now. (2) Type 2 ID (myocardial infarction): Plan: Clinically, patient denies chest pain, left arm pain, and left jaw pain/pressure Bradycardia , worsened baseline changes with inferior wall changes, concern for IWMI Echo with depressed EF from 07/15. perhaps Inferior wall hypokinesis Troponin grossly elevated at 10,072.9-->7439 Per cardiology: patient will require a catheterization, Cath scheduled for 08/31 tenative on HGB abd Cr staged PCI for 09/04 Heparin low-dose without bolus started in the ED BNP markedly elevated at 4669, however now with acute renal failure (3) Kidney replaced by transplant: Plan: Hx of renal transplant in 1979 Continue prednisone, consider stress dosing Per nephrology, okay to continue azathioprine (4) Acute kidney injury superimposed on chronic kidney disease: Plan: Per patient, poor oral intake and GI losses since 08/24 Avoid nephrotoxic agents Hold lisinopril Nephrology consulted creatinine improving. (5) Anemia: Plan: Hgb 9.2 and HCT 29.1 on arrival; may be secondary to acute on chronic CKD Clinically, patient endorses some dizziness with standing In the setting of type II ID, transfuse to hemoglobin target >8 g/dL Hx of blood transfusion approximately 10 years ago Concern with transfusion and possible need for future transplant, trying to be conservative, did have epo 08/30 per nephrolgy Blood informed consent obtained 2 units PRBCs ordered; (6) History of DVT (deep vein thrombosis): Plan: Patient normally takes warfarin; Hold warfarin Heparin low-dose without bolus started in the ED Repeat a.m. PT/INR (7) Hypercholesterolemia: Plan: Continue atorvastatin Hold gemfibrozil due to kidney function Plan DNR/DNI VTE PPx: Heparin low-dose w/o bolus (platelets okay at 432) Admission and Anticipated Discharge Date Admission Date: August 28, 2023 Subjective Patient reports no new symptoms. Review of Systems Review of Systems: All systems reviewed & are unremarkable except as noted in HPI & below Physical Exam Physical Exam: Patient is comfortable cardiac RRR abd: soft slightly distended Results & Data Results & Data Vital Signs (Past 12 Hours) Vital Signs Temp Pulse Resp BP Pulse Ox O2 Del Method 09/02/23 19:15 37.2 C 70 16 150/96 H 97 Room Air 09/02/23 15:45 36.9 C 83 18 150/103 H 97 Room Air 09/02/23 12:15 36.7 C 77 18 154/94 H 96 Room Air PG Care Time/CCT Total # of Minutes Spent Total Time Spent with Patient: Total time spent is greater than 50% in coordination of care (as documented) at patient's floor/unit and/or counseling patient: Coding Level of Care Code 06992 SUB INP/OBS CARE 2/35MIN Diagnoses Multifocal pneumonia J18.9 Type 2 ID (myocardial infarction) I21.A1 Kidney replaced by transplant Z94.0 Acute kidney injury superimposed on chronic kidney disease N17.9; N18.9 Anemia D64.9 History of DVT (deep vein thrombosis) Z86.718 Hypercholesterolemia E78.00
[2023-09-03 06:13] LABS: Hematocrit (blood only) 27.4 % (42.0-52.0); Hemoglobin 8.4 g/dl (14.0-18.0); Mean Corpuscular Hemoglobin 32.9 pg (25.0-34.0); Mean Corpuscular Hgb Conc 30.7 g/dL (32.0-36.0); Mean Corpuscular Volume 107.5 fL (80.0-100.0); Mean Platelet Volume 9.2 fL (9.4-12.4); Nucleated RBC # (auto) 0.04 K/uL (0.00-0.12); Nucleated RBC % (auto) 0.5 %; Platelet Count 347 K/uL (130-400); RDW Coefficient of Variation 16.1 % (11.5-14.5); RDW Standard Deviation 62.5 fL (36.4-46.3); Red Blood Count 2.55 M/uL (4.70-6.10); White Blood Count 7.65 K/ul (4.8-10.8)
[2023-09-03 06:31] LABS: Albumin Level 3.1 gm/dl (3.4-5.0); BUN Creatinine Ratio 15.4 (10-20); Calcium 7.9 mg/dl (8.6-10.3); Creatinine Clr Calc Pharmacy 21.1 ml/min; Est GFR (African American) 20.1 ml/min; Est GFR (Non-African American) 17.4 ml/min; Phosphorus 3.7 mg/dl (2.5-4.9); Potassium 3.8 mmol/L (3.5-5.1)
[2023-09-03 06:49] LABS: Ferritin 556.9 ng/ml (8-388)
[2023-09-03] MEDS: ASPIRIN 81 MG ECTAB PO SCH (08:57)
[2023-09-03 09:17] LABS: C Reactive Protein 0.83 mg/dl (0-0.5)
--- NOTE | 2023-09-03 15:23 | Nephrology Progress Note ---
Date of Service September 03, 2023 Assessment & Plan (1) Acute kidney injury superimposed on chronic kidney disease: Plan: KELSEA attributed to ATN in the setting of NSTEMI and multifocal pneumonia. Volume status acceptable. Creatinine stable. Electrolytes normal. Medications are appropriate for kidney function. Maintain renal diet. Stop Patiromer today. Continue Renvela QAC. Continue NaHCO3 BID. Repeat metabolic profile tomorrow AM. (2) Kidney replaced by transplant: Plan: Baseline creatinine ~3.3 mg/dL. A3 albuminuria. Potential future indications for [employer] reviewed. Continue azathioprine and prednisone at current dose. (3) Anemia: Plan: Hgb stable. Epogen 83161 units provided yesterday. Repeat labs tomorrow AM. Denies signs of continued GI blood loss. (4) Coronary artery disease: Plan: s/p diagnostic cath 09/01. Planned PCI for RCA and LAD anticipated tomorrow. Beta macy held due to symptomatic bradycardia. HR now in the 90's. May consider resuming low dose beta-macy following intervention to RCA. Will defer to cardiology. Avoid RAASi for now. Asymptomatic currently. Admission and Anticipated Discharge Date Admission Date: August 28, 2023 Subjective No acute events overnight. Bradley feels reasonably well. He denies any fluid retention or edema. He denies chest pains or palpitations. No notable dyspnea ambulating in hospital room. I met with Bradley and his this morning. Review of Systems Review of Systems: All systems reviewed & are unremarkable except as noted in HPI & below Physical Exam Constitutional: well developed; no acute distress Eyes: no scleral abnormality and no corneal abnormality Neck: normal visual inspection and trachea midline Respiratory: normal respiratory effort Auscultation: lungs clear to auscultation bilaterally Cardiovascular: Rate/Rhythm: regular rate Heart Sounds: normal S1 and normal S2 Extremities: no edema Musculoskeletal: Extremities: no cyanosis and no clubbing Skin: normal turgor Neurologic: Motor/Sensory: no tremor and no asterixis Psychiatric: Orientation: alert and oriented x 3 Results & Data Vital Signs (Past 12 Hours) Vital Signs Temp Pulse Resp BP BP Pulse Ox O2 Del Method 09/03/23 15:08 36.8 C 87 16 138/93 98 Room Air 09/03/23 11:18 36.7 C 87 16 150/87 H 97 Room Air 09/03/23 07:30 Room Air 09/03/23 07:06 36.8 C 102 H 18 137/94 99 Room Air Laboratory Results Laboratory Results - last 24 hr 09/03/23 05:31 WBC 7.65 RBC 2.55 L Hgb 8.4 L Hct 27.4 L MCV 107.5 H MCH 32.9 MCHC 30.7 L RDW Std Deviation 62.5 H RDW Coeff of Zeus 16.1 H Plt Count 347 MPV 9.2 L Absolute Nucleated RBC 0.04 Nucleated RBC % (auto) 0.5 Sodium 138 Potassium 3.8 Chloride 110 H Carbon Dioxide 17 L Anion Gap 11 BUN 56 H Creatinine 3.63 H Est Cr Clr Drug Dosing 21.1 Est GFR ( Amer) 20.1 Est GFR (Non-Af Amer) 17.4 BUN/Creatinine Ratio 15.4 Glucose 87 Calcium 7.9 L Phosphorus 3.7 Iron 64 TIBC 204 L Unsaturated IBC 140 L Transferrin % Sat 31 Ferritin 556.9 H C-Reactive Protein 0.83 H Albumin 3.1 L PG Care Time/CCT Total # of Minutes Spent Total Time Spent with Patient: Total time spent is greater than 50% in coordination of care (as documented) at patient's floor/unit and/or counseling patient: Coding Level of Care Code 09547 SUB INP/OBS CARE 3/50MIN Diagnoses Acute kidney injury superimposed on chronic kidney disease N17.9; N18.9 Kidney replaced by transplant Z94.0 Anemia D64.9 Coronary artery disease I25.10
[2023-09-03] MEDS: CLOPIDOGREL BISULFATE 300 MG TAB PO ONE (19:53)
[2023-09-03] MEDS: CLOPIDOGREL BISULFATE 300 MG TAB ONE (21:29)
--- NOTE | 2023-09-03 22:38 | Hospitalist Progress Note ---
Date of Service September 03, 2023 Assessment & Plan (1) Multifocal pneumonia: Plan: Symptoms began 08/24, immunosuppressed with azathioprine for renal transplant Procalcitonin WNL, COVID, RSV, flu negative CXR suggests multifocal pneumonia Blood cultures , negative to date MRSA swab negative not acting like pneumonia with non productive cough, will check non con chest CT send pjp pcr, consider asking pulmonary eval pending the CT results Zosyn 4.5mg IV q12h Doxycycline 100 mg IV BID Patient on room air. will continue to monitor. Hold pulmonary consult for now. (2) Type 2 MN (myocardial infarction): Plan: Clinically, patient denies chest pain, left arm pain, and left jaw pain/pressure Bradycardia , worsened baseline changes with inferior wall changes, concern for IWMI Echo with depressed EF from 07/15. perhaps Inferior wall hypokinesis Troponin grossly elevated at 10,072.9-->7439 Per cardiology: patient will require a catheterization, Cath scheduled for 08/31 tenative on HGB abd Cr staged PCI for 09/04 Heparin low-dose without bolus started in the ED BNP markedly elevated at 4669, however now with acute renal failure reviewed creatinine on 09/03 (3) Kidney replaced by transplant: Plan: Hx of renal transplant in 1979 Continue prednisone, consider stress dosing Per nephrology, okay to continue azathioprine (4) Acute kidney injury superimposed on chronic kidney disease: Plan: Per patient, poor oral intake and GI losses since 08/24 Avoid nephrotoxic agents Hold lisinopril Nephrology consulted creatinine improving. (5) Anemia: Plan: Hgb 9.2 and HCT 29.1 on arrival; may be secondary to acute on chronic CKD Clinically, patient endorses some dizziness with standing In the setting of type II MN, transfuse to hemoglobin target >8 g/dL Hx of blood transfusion approximately 10 years ago Concern with transfusion and possible need for future transplant, trying to be conservative, did have epo 08/30 per nephrolgy Blood informed consent obtained 2 units PRBCs ordered; (6) History of DVT (deep vein thrombosis): Plan: Patient normally takes warfarin; Hold warfarin Heparin low-dose without bolus started in the ED Repeat a.m. PT/INR (7) Hypercholesterolemia: Plan: Continue atorvastatin Hold gemfibrozil due to kidney function Plan DNR/DNI VTE PPx: Heparin low-dose w/o bolus (platelets okay at 432) Admission and Anticipated Discharge Date Admission Date: August 28, 2023 Subjective Patient reports no new symptoms. Review of Systems Review of Systems: All systems reviewed & are unremarkable except as noted in HPI & below Physical Exam Physical Exam: Patient is comfortable cardiac RRR abd: soft slightly distended Results & Data Results & Data Vital Signs (Past 12 Hours) Vital Signs Temp Pulse Pulse Resp BP BP Pulse Ox 09/03/23 19:00 36.7 C 108 H 21 142/95 H 99 09/03/23 17:27 09/03/23 15:08 36.8 C 87 16 138/93 98 09/03/23 11:18 36.7 C 87 16 150/87 H 97 O2 Del Method 09/03/23 19:00 Room Air 09/03/23 17:27 Room Air 09/03/23 15:08 Room Air 09/03/23 11:18 Room Air PG Care Time/CCT Total # of Minutes Spent Total Time Spent with Patient: Total time spent is greater than 50% in coordination of care (as documented) at patient's floor/unit and/or counseling patient: Coding Level of Care Code 64454 SUB INP/OBS CARE 2/35MIN Diagnoses Multifocal pneumonia J18.9 Type 2 MN (myocardial infarction) I21.A1 Kidney replaced by transplant Z94.0 Acute kidney injury superimposed on chronic kidney disease N17.9; N18.9 Anemia D64.9 History of DVT (deep vein thrombosis) Z86.718 Hypercholesterolemia E78.00
[2023-09-04 06:41] LABS: Basophils # (auto) 0.05 K/uL (0.00-0.20); Basophils % (auto) 0.6 %; Eosinophils # (auto) 0.12 K/uL (0.00-0.50); Eosinophils % (auto) 1.5 %; Hematocrit (blood only) 28.3 % (42.0-52.0); Immature Granulocytes # (auto) 0.16 K/uL (0.01-0.20); Lymphocytes # (auto) 1.12 K/uL (1.20-3.40); Lymphocytes % (auto) 14.3 %; Mean Corpuscular Hemoglobin 33.7 pg (25.0-34.0); Mean Corpuscular Hgb Conc 31.8 g/dL (32.0-36.0); Mean Platelet Volume 9.3 fL (9.4-12.4); Monocytes % (auto) 7.6 %; Nucleated RBC # (auto) 0.05 K/uL (0.00-0.12); Nucleated RBC % (auto) 0.6 %; Platelet Count 345 K/uL (130-400); RDW Coefficient of Variation 16.3 % (11.5-14.5); RDW Standard Deviation 61.6 fL (36.4-46.3); Red Blood Count 2.67 M/uL (4.70-6.10); White Blood Count 7.85 K/ul (4.8-10.8)
[2023-09-04 06:50] LABS: BUN Creatinine Ratio 14.6 (10-20); Calcium 7.8 mg/dl (8.6-10.3); Creatinine Clr Calc Pharmacy 21.7 ml/min; Est GFR (African American) 20.7 ml/min; Est GFR (Non-African American) 17.9 ml/min; Potassium 3.5 mmol/L (3.5-5.1)
--- NOTE | 2023-09-04 07:06 | Pre Anesthesia Assessment ---
Date of Service September 04, 2023 Pre Sedation Assessment Vital Signs Temp Pulse Pulse Pulse Resp BP BP 09/04/23 03:00 36.6 C 91 H 21 127/80 09/03/23 23:00 36.5 C 98 H 16 129/76 09/03/23 22:00 87 09/03/23 19:00 36.7 C 108 H 21 142/95 H 09/03/23 17:27 09/03/23 15:08 36.8 C 87 16 138/93 09/03/23 11:18 36.7 C 87 16 150/87 H 09/03/23 07:30 Pulse Ox O2 Del Method 09/04/23 03:00 99 Room Air 09/03/23 23:00 98 Room Air 09/03/23 22:00 09/03/23 19:00 99 Room Air 09/03/23 17:27 Room Air 09/03/23 15:08 98 Room Air 09/03/23 11:18 97 Room Air 09/03/23 07:30 Room Air Cardiovascular RRR, no murmur, no edema Additional Comments: soft SM Respiratory normal respiratory effort, lungs clear to auscultation Pre-Sedation Airway Assessment Smoking Status: Never smoker Hx Sleep Apnea: No Short, Thick Neck: No Thyromental Distance: > or= 3.5 Finger Breadths Oral Cavity: + WNL Mallampati Class: III ASA: ASA4 NPO Status Date of Last Intake of Fluids: 09/01/23 Time of Last Intake of Fluids: 07:00 Date of Last Intake of Solid Food: 08/31/23 Time of Last Intake of Solid Foods: 17:30 Notes The planned sedation has been discussed with the patient. Informed Consent was obtained. I have identified the patient, determined the appropriateness of sedation and have assessed the patient immediately prior to the procedure. All medicine(s) and interventions are by my order.
[2023-09-04] MEDS: HEPARIN (PORCINE) 1000 UNIT/ML 10 ML (CATH LAB USE ONLY) ONE (08:16)
[2023-09-04] MEDS: niCARdipine HCL INJ 2.5 MG/ML 10 ML AMP ONE (08:16)
[2023-09-04] MEDS: fentaNYL citrate PF 100 MCG/2 ML VIAL ONE (08:16)
[2023-09-04] MEDS: MIDAZOLAM HCL 1 MG/ML 2ML VIAL ONE (08:16)
[2023-09-04] MEDS: NITROGLYCERIN/D5W 100MCG/ML 20ML SYR ONE (08:16)
[2023-09-04] MEDS: CLOPIDOGREL BISULFATE 75 MG TAB PO SCH (08:18)
--- NOTE | 2023-09-04 08:28 | Post Anesthesia Assessment ---
Date of Service September 04, 2023 Post Sedation Assessment Vital Signs Temp Pulse Pulse Pulse Resp BP BP 09/04/23 07:10 103 H 18 09/04/23 03:00 36.6 C 91 H 21 127/80 09/03/23 23:00 36.5 C 98 H 16 129/76 09/03/23 22:00 87 09/03/23 19:00 36.7 C 108 H 21 142/95 H 09/03/23 17:27 09/03/23 15:08 36.8 C 87 16 138/93 09/03/23 11:18 36.7 C 87 16 150/87 H Pulse Ox O2 Del Method 09/04/23 07:10 97 Room Air 09/04/23 03:00 99 Room Air 09/03/23 23:00 98 Room Air 09/03/23 22:00 09/03/23 19:00 99 Room Air 09/03/23 17:27 Room Air 09/03/23 15:08 98 Room Air 09/03/23 11:18 97 Room Air Recovery Score Activity: Moves 4 extremities Respiration: Deep Breath/Cough Circulation: +/-20% PreAnes Value Consciousness: Fully Awake Oxygen Saturation: > 92% On Room Air Post Anesthesia Score: 8 Discharge Sedation Level of Care: Fast Track Phase II Post Sedation Plan On clinical assessment, the patient appears to have tolerated the sedation without complications. Patient is recovering as anticipated. Patient will continue to be monitored by nursing and may be discharged when sedation discharge criteria are met per below protocol. Upon Completions of procedure up to 15 minutes continue every 5 minute vital signs and the P.A.R. score; then discharge to a Phase I or Fast Track to Phase II per the following guidelines: * Discharge Patient to appropriate Phase II area if PAR is 8 or greater or return to pre- procedure baseline. The post - procedure orders will be as directed. * If PAR score is less than 8 or not return to pre-procedure baseline then patient will follow Phase I monitoring till PAR is reached for Phase II. The Phase I may be done in procedure room or may call to secure a Phase I area. * If naloxone or flumazenil are used for reversal, hold in Phase I for continued monitoring from when last reversal dose was given for a minimum of 60 minutes or longer pending the nurse and/or physician discretion of patient condition before discharge to Phase II. Please call the Sedation Physician to re-evaluate and complete post-note for discharge to Phase II area. Do NOT discharge from procedure sedation or Phase 1 until post- sedation evaluation note is complete by procedure /sedation MD Sedation Discharge Instructions to be given to the patient at discharge to home. [facility] [place] Procedure Codes (Charges) Indication for Procedure Indication for procedure: NSTEMI Sedation/Anesthesia Procedure 1: Sedation/Anesthesia: 03751 Mod Sedation by the same physician;Init15 Min Child Age 5 & Up (INITIAL 15 MIN START 0734) Total Sedation Time (minutes): 40 Procedure 2: Sedation/Anesthesia: 96033 Mod Sedation by the same physician; Ea [id number] Minutes (ADDITIONAL 25 MIN, END 0814) Total Sedation Time (minutes): 40
[2023-09-04] MEDS: ASPIRIN 81 MG CHEW ONE (08:31)
--- NOTE | 2023-09-04 08:32 | Cardiac Catheterization ---
[facility] Data: Engineer/Conductor Cardiac Status Clinical evaluation leading to the procedure Diagnostic Physicians Name: Tha Tran MD, PhD Closure Device Recommendations: PCI without planned CABG Cardiac Cath Procedure Full Procedure Date September 04, 2023 Pre-Procedure Diagnosis Pre-Procedure Diagnosis: Non STEMI AUC Score AUC Score: 07 Post-Procedure Diagnosis Post-Procedure Diagnosis: Severe CAD and Successful PCI Procedure(s) Performed Procedure(s) Performed: Drug Eluting Stent and Ultrasound Guided Vascular Access Commissioning Editor Tha Tran MD, PhD Estimated Blood Loss Estimated Blood Loss: 10 mL Medication(s) Medication(s): Fentanyl, Heparin, Lidocaine 1% and Versed Summary of Findings Brief description: Patient was brought to the cardiac catheterization suite where he was shaved and prepped in a sterile fashion. Sedated using IV Versed and fentanyl. Soft tissues of the right groin were anesthetized using 10 mL of 1% Xylocaine. Using the ultrasound for guidance (image saved), the right femoral artery was accessed and a 6 [place] femoral artery sheath was placed. All catheters were advanced and exchanged over a 0.035 J-tip wire. PCI was undertaken using a 6 [place]gr[place] JR4 guide catheter. Patient was provided 5500 units of IV heparin. The ACT was checked intermittently and additional heparin provided as needed throughout the case to maintain therapeutic anticoagulation. Patient had already been loaded with 300 mg p.o. Plavix and 81 mg aspirin on the evening prior to procedure. BMW reversal guidewire was advanced and positioned distally in the RCA. Lesion was predilated using a 2.5 x 12 mm sprinter balloon multiple inflations up to 14 mike. Additional predilatation using a 3.0 x 12 mm trek balloon with multiple inf lations up to 14 mike. Implant 3.0 x 22 mm [place] AGNES at 18 mike Postdilatation with a 3.5 x 8 mm neotrek balloon with multiple inflations up to 20 mike. Then, 3.75 x 12 mm neotrek to 18 mike for multiple inflations. Finally, 4.0 x 8 mm neotrek inflated to 18 mike distally and to mid, 20 mike to the proximal edge. The balloons and the guidewire were removed. Final angiographic evaluation. Guide catheter removed. Limited right femoral artery angiography was performed to evaluate for closure. Findings were favorable, therefore, the femoral artery sheath was exchanged for a 6 [place]in Angio-Seal closure device. This was deployed in the recommended fashion. We obtained immediate hemostasis. Patient remained hemodynamically stable and asymptomatic. He was returned to the recovery area. This ended the case. PCI findings: Less than 10% residual stenosis at the distal stent of the heavily calcified lesion. MOI-3 flow post PCI No evidence of dissection or perforation post PCI Summary: 1. Successful PCI of complex calcified RCA lesion using a single drug-eluting stent. 2. Dual antiplatelet therapy with aspirin and Plavix to complete 1 to 2 years. 3. Guideline directed medical therapy as tolerated. Currently includes low- dose aspirin, statin, and if his heart rate will allow in the near future we will begin low-dose beta-macy. Poor renal function precludes LAURIE inhibitor/ARB at this time. Hemodynamics Rest Ao:: 126/81 mmHg Final Ao: Not recorded LV: Not performed Recommendations Recommendations: PCI without planned CABG Radiation Exposure (mGy) 1429 mGy. Fluoroscopy time 11.5 minutes Contrast (mls) 80 mL Anesthesia 2 mg Versed, 75 mcg fentanyl IV. Start time 0734, end time 0814 Disposition Engineer/Conductor Holding/Recovery I attest to the content of the Intraoperative Record and any orders documented therein. Any exceptions are noted below. PG Care Time/CCT Total # of Minutes Spent Total Time Spent with Patient: Total time spent is greater than 50% in coordination of care (as documented) at patient's floor/unit and/or counseling patient:
[2023-09-04] MEDS: SODIUM CHLORIDE 0.9% 1,000 ML IV SCH (09:19)
[2023-09-04 09:38] LABS: Basophils # (auto) 0.06 K/uL (0.00-0.20); Basophils % (auto) 0.6 %; Eosinophils # (auto) 0.18 K/uL (0.00-0.50); Eosinophils % (auto) 1.7 %; Hematocrit (blood only) 28.9 % (42.0-52.0); Hemoglobin 9.1 g/dl (14.0-18.0); Immature Granulocytes # (auto) 0.16 K/uL (0.01-0.20); Immature Granulocytes % (auto) 1.5 %; Lymphocytes % (auto) 12.5 %; Mean Corpuscular Hemoglobin 33.8 pg (25.0-34.0); Mean Corpuscular Hgb Conc 31.5 g/dL (32.0-36.0); Mean Corpuscular Volume 107.4 fL (80.0-100.0); Mean Platelet Volume 8.9 fL (9.4-12.4); Monocytes # (auto) 0.68 K/uL (0.11-0.59); Monocytes % (auto) 6.6 %; Neutrophils # (auto) 7.98 K/uL (1.40-6.50); Neutrophils % (auto) 77.1 %; Nucleated RBC # (auto) 0.04 K/uL (0.00-0.12); Nucleated RBC % (auto) 0.4 %; Platelet Count 354 K/uL (130-400); RDW Coefficient of Variation 16.6 % (11.5-14.5); RDW Standard Deviation 62.7 fL (36.4-46.3); Red Blood Count 2.69 M/uL (4.70-6.10); White Blood Count 10.36 K/ul (4.8-10.8)
--- NOTE | 2023-09-04 10:44 | Nephrology Progress Note ---
Date of Service September 04, 2023 Assessment & Plan (1) Acute kidney injury superimposed on chronic kidney disease: Plan: KELSEA attributed to ATN in the setting of NSTEMI and multifocal pneumonia. Volume status acceptable. Creatinine stable. Electrolytes normal. Medications are appropriate for kidney function. Maintain renal diet. Continue Renvela QAC. Continue NaHCO3 BID. Repeat metabolic profile tomorrow AM. (2) Kidney replaced by transplant: Plan: Baseline creatinine ~3.3 mg/dL. A3 albuminuria. 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 Continue azathioprine and prednisone at current dose. (3) Anemia: Plan: Hgb stable. Epogen 01650 units provided 09/02. (4) Coronary artery disease: Plan: s/p diagnostic cath 09/01. Planned staged procedure for RCA and LAD. AGNES to RCA completed today. Beta macy held due to symptomatic bradycardia on admission. HR now in the 90's. May consider resuming low dose beta-macy but I will defer to cardiology. Avoid RAASi for now due to kidney dysfunction. Admission and Anticipated Discharge Date Admission Date: August 28, 2023 Subjective No acute events overnight. Bradley was seen post cath with his at the bedside. He feels well and denies any acute complaints. Appetite remains slightly poor. No chest pain or palpitations. However, Bradley notes that he can feel his heart rate is increased. He denies fluid retention or edema. Review of Systems Review of Systems: All systems reviewed & are unremarkable except as noted in HPI & below Physical Exam Constitutional: well developed; no acute distress Eyes: no scleral abnormality and no corneal abnormality Neck: normal visual inspection and trachea midline Respiratory: normal respiratory effort Auscultation: lungs clear to auscultation bilaterally Cardiovascular: Rate/Rhythm: regular rate Heart Sounds: normal S1 and normal S2 Extremities: no edema Musculoskeletal: Extremities: no cyanosis and no clubbing Skin: normal turgor Neurologic: Motor/Sensory: no tremor and no asterixis Psychiatric: Orientation: alert and oriented x 3 Results & Data Vital Signs (Past 12 Hours) Vital Signs Temp Pulse Pulse Resp BP BP Pulse Ox 09/04/23 10:36 106 H 131/86 09/04/23 10:06 106 H 133/84 09/04/23 09:36 102 H 131/86 09/04/23 09:15 107 H 129/87 09/04/23 09:00 36.7 C 97 H 16 133/87 98 09/04/23 08:35 97 H 20 132/93 96 09/04/23 08:20 92 H 20 148/93 H 95 09/04/23 07:10 103 H 18 97 09/04/23 03:00 36.6 C 91 H 21 127/80 99 09/03/23 23:00 36.5 C 98 H 16 129/76 98 O2 Del Method 09/04/23 10:36 09/04/23 10:06 09/04/23 09:36 09/04/23 09:15 09/04/23 09:00 Room Air 09/04/23 08:35 Room Air 09/04/23 08:20 Room Air 09/04/23 07:10 Room Air 09/04/23 03:00 Room Air 09/03/23 23:00 Room Air Laboratory Results Laboratory Results - last 24 hr 09/04/23 09/04/23 09/04/23 05:28 07:53 08:07 WBC 7.85 RBC 2.67 L Hgb 9.0 L Hct 28.3 L MCV 106.0 H MCH 33.7 MCHC 31.8 L RDW Std Deviation 61.6 H RDW Coeff of Zeus 16.3 H Plt Count 345 MPV 9.3 L Immature Gran % (Auto) 2.0 Neut % (Auto) 74.0 Lymph % (Auto) 14.3 Payette % (Auto) 7.6 Eos % (Auto) 1.5 Baso % (Auto) 0.6 Neut # (Auto) 5.80 Lymph # (Auto) 1.12 L [place]ette # (Auto) 0.60 H Eos # (Auto) 0.12 Baso # (Auto) 0.05 Immature Gran # (Auto) 0.16 Absolute Nucleated RBC 0.05 Nucleated RBC % (auto) 0.6 Activ Coag Time Kaolin 196 H 234 H Sodium 140 Potassium 3.5 Chloride 111 H Carbon Dioxide 18 L Anion Gap 11 BUN 52 H Creatinine 3.55 H Est Cr Clr Drug Dosing 21.7 Est GFR ( Amer) 20.7 Est GFR (Non-Af Amer) 17.9 BUN/Creatinine Ratio 14.6 Glucose 85 Calcium 7.8 L 09/04/23 09:19 WBC 10.36 RBC 2.69 L Hgb 9.1 L Hct 28.9 L MCV 107.4 H MCH 33.8 MCHC 31.5 L RDW Std Deviation 62.7 H RDW Coeff of Zeus 16.6 H Plt Count 354 MPV 8.9 L Immature Gran % (Auto) 1.5 Neut % (Auto) 77.1 Lymph % (Auto) 12.5 [place] % (Auto) 6.6 Eos % (Auto) 1.7 Baso % (Auto) 0.6 Neut # (Auto) 7.98 H Lymph # (Auto) 1.30 Payette # (Auto) 0.68 H Eos # (Auto) 0.18 Baso # (Auto) 0.06 Immature Gran # (Auto) 0.16 Absolute Nucleated RBC 0.04 Nucleated RBC % (auto) 0.4 Activ Coag Time Kaolin Sodium Potassium Chloride Carbon Dioxide Anion Gap BUN Creatinine Est Cr Clr Drug Dosing Est GFR ( Amer) Est GFR (Non-Af Amer) BUN/Creatinine Ratio Glucose Calcium PG Care Time/CCT Total # of Minutes Spent Total Time Spent with Patient: Total time spent is greater than 50% in coordination of care (as documented) at patient's floor/unit and/or counseling patient: Coding Level of Care Code 01552 SUB INP/OBS CARE 3/50MIN Diagnoses Acute kidney injury superimposed on chronic kidney disease N17.9; N18.9 Kidney replaced by transplant Z94.0 Anemia D64.9 Coronary artery disease I25.10
[2023-09-04] MEDS: METOPROLOL TARTRATE 25 MG TAB PO SCH (20:15)
--- NOTE | 2023-09-04 22:18 | Hospitalist Progress Note ---
Date of Service September 04, 2023 Assessment & Plan (1) Multifocal pneumonia: Plan: Symptoms began 08/24, immunosuppressed with azathioprine for renal transplant Procalcitonin WNL, COVID, RSV, flu negative CXR suggests multifocal pneumonia Blood cultures , negative to date MRSA swab negative not acting like pneumonia with non productive cough, will check non con chest CT send pjp pcr, consider asking pulmonary eval pending the CT results Zosyn 4.5mg IV q12h Doxycycline 100 mg IV BID Patient on room air. will continue to monitor. Patient appears to be tolerating this well. (2) Type 2 OH (myocardial infarction): Plan: Clinically, patient denies chest pain, left arm pain, and left jaw pain/pressure Bradycardia , worsened baseline changes with inferior wall changes, concern for IWMI Echo with depressed EF from 07/15. perhaps Inferior wall hypokinesis Troponin grossly elevated at 10,072.9-->7439 Per cardiology: patient will require a catheterization, Cath scheduled for 08/31 tenative on HGB abd Cr staged PCI for 09/04 Heparin low-dose without bolus started in the ED BNP markedly elevated at 4669, however now with acute renal failure reviewed creatinine on 09/03 (3) Kidney replaced by transplant: Plan: Hx of renal transplant in 1979 Continue prednisone, consider stress dosing Per nephrology, okay to continue azathioprine (4) Acute kidney injury superimposed on chronic kidney disease: Plan: Per patient, poor oral intake and GI losses since 08/24 Avoid nephrotoxic agents Hold lisinopril Nephrology consulted creatinine improving. (5) Anemia: Plan: Hgb 9.2 and HCT 29.1 on arrival; may be secondary to acute on chronic CKD Clinically, patient endorses some dizziness with standing In the setting of type II OH, transfuse to hemoglobin target >8 g/dL Hx of blood transfusion approximately 10 years ago Concern with transfusion and possible need for future transplant, trying to be conservative, did have epo 08/30 per nephrolgy Blood informed consent obtained 2 units PRBCs ordered; (6) History of DVT (deep vein thrombosis): Plan: Patient normally takes warfarin; Hold warfarin Heparin low-dose without bolus started in the ED Repeat a.m. PT/INR (7) Hypercholesterolemia: Plan: Continue atorvastatin Hold gemfibrozil due to kidney function Plan DNR/DNI VTE PPx: Heparin low-dose w/o bolus (platelets okay at 432) Admission and Anticipated Discharge Date Admission Date: August 28, 2023 Subjective 58 yo male reports no new symptoms. Tolerated procedure Review of Systems Review of Systems: All systems reviewed & are unremarkable except as noted in HPI & below Physical Exam Physical Exam: Patient is comfortable cardiac RRR abd: soft slightly distended Results & Data Results & Data Vital Signs (Past 12 Hours) Vital Signs Temp Pulse Pulse Pulse Resp BP BP 09/04/23 19:00 36.5 C 98 H 18 132/87 09/04/23 16:00 112 H 09/04/23 15:17 36.8 C 106 H 18 133/89 09/04/23 15:14 36.8 C 106 H 18 133/89 09/04/23 14:06 109 H 131/89 09/04/23 13:06 96 H 130/90 09/04/23 12:06 101 H 139/91 09/04/23 11:06 98 H 131/81 09/04/23 10:36 106 H 131/86 Pulse Ox O2 Del Method 09/04/23 19:00 98 Room Air 09/04/23 16:00 09/04/23 15:17 99 Room Air 09/04/23 15:14 99 Room Air 09/04/23 14:06 09/04/23 13:06 09/04/23 12:06 09/04/23 11:06 09/04/23 10:36 PG Care Time/CCT Total # of Minutes Spent Total Time Spent with Patient: Total time spent is greater than 50% in coordination of care (as documented) at patient's floor/unit and/or counseling patient: Coding Level of Care Code 11039 SUB INP/OBS CARE 2/35MIN Diagnoses Multifocal pneumonia J18.9 Type 2 OH (myocardial infarction) I21.A1 Kidney replaced by transplant Z94.0 Acute kidney injury superimposed on chronic kidney disease N17.9; N18.9 Anemia D64.9 History of DVT (deep vein thrombosis) Z86.718 Hypercholesterolemia E78.00
[2023-09-05 06:38] LABS: BUN Creatinine Ratio 14.2 (10-20); Creatinine Clr Calc Pharmacy 22.6 ml/min; Est GFR (African American) 21.9 ml/min; Est GFR (Non-African American) 18.9 ml/min; Potassium 3.9 mmol/L (3.5-5.1)
--- NOTE | 2023-09-05 10:39 | Nephrology Progress Note ---
Date of Service September 05, 2023 Assessment & Plan (1) Acute kidney injury superimposed on chronic kidney disease: Plan: KELSEA attributed to ATN in the setting of NSTEMI and multifocal pneumonia. Volume status acceptable. Creatinine improvign. Electrolytes normal. Medications are appropriate for kidney function. Maintain renal diet. Continue Renvela QAC. Continue NaHCO3 BID. Follow up with me in the [place] nephrology clinic next week. (2) Kidney replaced by transplant: Plan: Baseline creatinine ~3.3 mg/dL. A3 albuminuria. 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 Continue azathioprine and prednisone at current dose. (3) Anemia: Plan: Hgb stable. Epogen 91013 units provided 09/02. (4) Coronary artery disease: Plan: s/p diagnostic cath 09/01. Planned staged procedure for RCA and LAD. AGNES to RCA completed today. Tolerating low dose metoprolol well. Avoid RAASi for now due to kidney dysfunction. Admission and Anticipated Discharge Date Admission Date: August 28, 2023 Subjective No acute events overnight. Bradley feels well overall. He denies chest pain or palpitations. He denies dyspnea. He is not experiencing fluid retention or edema. He continues to have frequent loose bowel movements. He denies melena or hematochezia. Stool has a greenish color and very liquid consistency. He denies abdominal pain. Persistent nausea reported. Appetite poor. Bradley feels like he would like to go home today. Review of Systems Review of Systems: All systems reviewed & are unremarkable except as noted in HPI & below Physical Exam Constitutional: well developed; no acute distress Eyes: no scleral abnormality and no corneal abnormality Neck: normal visual inspection and trachea midline Respiratory: normal respiratory effort Auscultation: lungs clear to auscultation bilaterally Cardiovascular: Rate/Rhythm: regular rate Heart Sounds: normal S1 and normal S2 Extremities: no edema Musculoskeletal: Extremities: no cyanosis and no clubbing Skin: normal turgor Neurologic: Motor/Sensory: no tremor and no asterixis Psychiatric: Orientation: alert and oriented x 3 Results & Data Vital Signs (Past 12 Hours) Vital Signs Temp Pulse Pulse Resp BP Pulse Ox O2 Del Method 09/05/23 09:17 89 09/05/23 08:06 36.7 C 59 L 18 127/71 93 Room Air 09/05/23 03:00 36.6 C 62 16 118/72 94 Room Air 09/05/23 02:26 83 09/04/23 23:00 36.4 C L 88 18 118/73 99 Room Air Laboratory Results Laboratory Results - last 24 hr 09/05/23 09/05/23 05:40 08:28 Sodium 137 Potassium 3.9 Chloride 110 H Carbon Dioxide 16 L Anion Gap 11 BUN 48 H Creatinine 3.39 H Est Cr Clr Drug Dosing 22.6 Est GFR ( Amer) 21.9 Est GFR (Non-Af Amer) 18.9 BUN/Creatinine Ratio 14.2 Glucose 88 POC Glucose 101 H Calcium 7.0 L PG Care Time/CCT Total # of Minutes Spent Total Time Spent with Patient: Total time spent is greater than 50% in coordination of care (as documented) at patient's floor/unit and/or counseling patient: Coding Level of Care Code 72310 SUB INP/OBS CARE 3/50MIN Diagnoses Acute kidney injury superimposed on chronic kidney disease N17.9; N18.9 Kidney replaced by transplant Z94.0 Anemia D64.9 Coronary artery disease I25.10
--- NOTE | 2023-09-05 13:05 | Cardiology Progress Note ---
Date of Service September 05, 2023 Assessment & Plan (1) Coronary artery disease: Plan: Status post PCI with drug-eluting stent to the RCA. Renal function is stable to slightly improved today. No events noted overnight. He has severe residual disease in the LAD which will be addressed as an outpatient. Because of his need for anticoagulant (warfarin), we will not utilize aspirin but instead we will utilize warfarin plus Plavix as his dual antiplatelet therapy per guidelines. Therefore aspirin will be stopped at discharge. He can resume his warfarin at this time and the Lovenox can be stopped. Continue Plavix 75 mg daily. His blood pressure is at target. His heart rate is a little bit fast but certainly was improved with the addition of beta-macy. Guideline directed medical therapy will therefore include high intensity statin therapy and beta-macy. Decision with regard to LAURIE inhibitor/ARB will be left to the nephrology team. (2) Bradycardia: Plan: Heart rate was improved with revascularization of the RCA as well as holding propranolol. He has tolerated the addition of low-dose metoprolol to tartrate (12.5 mg p.o. twice daily) which is most appropriate for his underlying cardiac disease. I feel like he should be discharged on this dose and then we can titrate up further as tolerated in the office. (3) Acute kidney injury superimposed on chronic kidney disease: Plan: Patient has tolerated the catheterization with regard to stable renal function. We did give him normal saline IV fluids which can be discontinued at this time. I would recommend that we check his renal function within the next 3 to 5 days after discharge. Avoid nephrotoxic agents. Further recommendations per nephro logy. (4) History of DVT (deep vein thrombosis): Plan: Restart the patient on warfarin. Would double the dose for the first day to begin with and then return to prior schedule. (5) Hypercholesterolemia: Plan: Patient is high risk. Continue atorvastatin 20 mg daily. We will continue to titrate as an outpatient. Plan From a cardiovascular standpoint the patient is appropriate for discharge. I would like to see him in the office within the next 1 to 2 weeks. Admission and Anticipated Discharge Date Admission Date: August 28, 2023 Subjective This is a chart review note as I am not presently at the hospital or in town. I have reviewed the patient's electronic chart. Results & Data Vital Signs (Past 12 Hours) Vital Signs Temp Pulse Pulse Resp BP Pulse Ox O2 Del Method 09/05/23 11:34 36.6 C 92 H 18 118/76 99 Room Air 09/05/23 09:17 89 09/05/23 08:06 36.7 C 59 L 18 127/71 93 Room Air 09/05/23 03:00 36.6 C 62 16 118/72 94 Room Air 09/05/23 02:26 83 PG Care Time/CCT Total # of Minutes Spent Total Time Spent with Patient: Total time spent is greater than 50% in coordination of care (as documented) at patient's floor/unit and/or counseling patient: Coding Level of Care Code None Diagnoses Coronary artery disease I25.10 Bradycardia R00.1 Acute kidney injury superimposed on chronic kidney disease N17.9; N18.9 History of DVT (deep vein thrombosis) Z86.718 Hypercholesterolemia E78.00
[2023-09-05] MEDS: ADVANCED PROBIOTIC 1250 MG CAPSULE PO SCH (13:12)
[2023-09-05 19:27] LABS: Fungitell (1-3)-B-D-Glucan <31 pg/mL
--- NOTE | 2023-09-05 22:18 | Hospitalist Progress Note ---
Date of Service September 05, 2023 Assessment & Plan (1) Multifocal pneumonia: Plan: Symptoms began 08/24, immunosuppressed with azathioprine for renal transplant Procalcitonin WNL, COVID, RSV, flu negative CXR suggests multifocal pneumonia Blood cultures , negative to date MRSA swab negative not acting like pneumonia with non productive cough, will check non con chest CT send pjp pcr, consider asking pulmonary eval pending the CT results Zosyn 4.5mg IV q12h Doxycycline 100 mg IV BID Patient on room air. will continue to monitor. Patient appears to be tolerating this well. (2) Type 2 DC (myocardial infarction): Plan: Clinically, patient denies chest pain, left arm pain, and left jaw pain/pressure Bradycardia , worsened baseline changes with inferior wall changes, concern for IWMI Echo with depressed EF from 07/15. perhaps Inferior wall hypokinesis Troponin grossly elevated at 10,072.9-->7439 Per cardiology: patient will require a catheterization, Cath scheduled for 08/31 tenative on HGB abd Cr staged PCI for 09/04 Heparin low-dose without bolus started in the ED BNP markedly elevated at 4669, however now with acute renal failure reviewed creatinine on 09/04 (3) Kidney replaced by transplant: Plan: Hx of renal transplant in 1979 Continue prednisone, consider stress dosing Per nephrology, okay to continue azathioprine (4) Acute kidney injury superimposed on chronic kidney disease: Plan: Per patient, poor oral intake and GI losses since 08/24 Avoid nephrotoxic agents Hold lisinopril Nephrology consulted creatinine improving. (5) Anemia: Plan: Hgb 9.2 and HCT 29.1 on arrival; may be secondary to acute on chronic CKD Clinically, patient endorses some dizziness with standing In the setting of type II DC, transfuse to hemoglobin target >8 g/dL Hx of blood transfusion approximately 10 years ago Concern with transfusion and possible need for future transplant, trying to be conservative, did have epo 08/30 per nephrolgy Blood informed consent obtained 2 units PRBCs ordered; will continue to monitor. (6) History of DVT (deep vein thrombosis): Plan: Patient normally takes warfarin; Hold warfarin Heparin low-dose without bolus started in the ED Repeat a.m. PT/INR (7) Hypercholesterolemia: Plan: Continue atorvastatin Hold gemfibrozil due to kidney function Plan DNR/DNI VTE PPx: Heparin low-dose w/o bolus Given diarrhea, and metabolic acidosis, will hold discharge today. Admission and Anticipated Discharge Date Admission Date: August 28, 2023 Subjective Patient is 58 yo male reports he main complaint today is diarrhea. He notices diarrhea with green BM. Review of Systems Review of Systems: All systems reviewed & are unremarkable except as noted in HPI & below Physical Exam Physical Exam: Patient is comfortable cardiac RRR abd: soft slightly distended Results & Data Results & Data Vital Signs (Past 12 Hours) Vital Signs Temp Pulse Pulse Resp BP Pulse Ox O2 Del Method 09/05/23 18:59 36.7 C 105 H 18 133/90 100 Room Air 09/05/23 15:35 36.8 C 18 L 18 121/77 98 Room Air 09/05/23 11:34 36.6 C 92 H 18 118/76 99 Room Air PG Care Time/CCT Total # of Minutes Spent Total Time Spent with Patient: Total time spent is greater than 50% in coordination of care (as documented) at patient's floor/unit and/or counseling patient: Coding Level of Care Code 37689 SUB INP/OBS CARE 2/35MIN Diagnoses Multifocal pneumonia J18.9 Type 2 DC (myocardial infarction) I21.A1 Kidney replaced by transplant Z94.0 Acute kidney injury superimposed on chronic kidney disease N17.9; N18.9 Anemia D64.9 History of DVT (deep vein thrombosis) Z86.718 Hypercholesterolemia E78.00
--- NOTE | 2023-09-06 05:21 | Electrocardiogram Report ---
Test Reason : Blood Pressure : / mmHG Vent. Rate : 100 BPM Atrial Rate : 127 BPM P-R Int : 182 ms QRS Dur : 144 ms QT Int : 430 ms P-R-T Axes : 127 -30 -71 degrees QTc Int : 554 ms Sinus rhythm with atrial runs Left axis deviation Right bundle branch block Minimal voltage criteria for LVH, may be normal variant ( R in aVL ) Inferior infarct (cited on or before 28-AUG-2023) T wave abnormality, consider anterior ischemia Abnormal ECG When compared with ECG of 28-AUG-2023 08:19, Atrial runs are now present Confirmed by Jonathan Kumari ([id number]) on 09/06/2023 5:21:03 AM Referred By: REFERRED SELF Confirmed By:Jonathan Kumari
[2023-09-06 06:35] LABS: BUN Creatinine Ratio 16.6 (10-20); Calcium 6.7 mg/dl (8.6-10.3); Creatinine Clr Calc Pharmacy 24.4 ml/min; Est GFR (African American) 23.5 ml/min; Est GFR (Non-African American) 20.3 ml/min; Potassium 3.6 mmol/L (3.5-5.1)
[2023-09-06 06:37] LABS: Hematocrit (blood only) 23.4 % (42.0-52.0); Hemoglobin 7.2 g/dl (14.0-18.0); Mean Corpuscular Hemoglobin 33.6 pg (25.0-34.0); Mean Corpuscular Hgb Conc 30.8 g/dL (32.0-36.0); Mean Corpuscular Volume 109.3 fL (80.0-100.0); Mean Platelet Volume 9.4 fL (9.4-12.4); Nucleated RBC # (auto) 0.08 K/uL (0.00-0.12); Nucleated RBC % (auto) 0.9 %; Platelet Count 305 K/uL (130-400); RDW Standard Deviation 67.1 fL (36.4-46.3); Red Blood Count 2.14 M/uL (4.70-6.10)
[2023-09-06] MEDS ORDERED: SODIUM CHLORIDE 0.9% 250 ML IV PRN ×2 (09:12→11:47)
--- NOTE | 2023-09-06 09:24 | Nephrology Progress Note ---
Date of Service September 06, 2023 Assessment & Plan (1) Acute kidney injury superimposed on chronic kidney disease: Plan: KELSEA attributed to ATN in the setting of NSTEMI and multifocal pneumonia. Volume status acceptable. Creatinine improving. Electrolytes normal. Medications are appropriate for kidney function. Maintain renal diet. Continue Renvela QAC. Continue NaHCO3 1300 BID. Document I/O's. Repeat metabolic profile tomorrow AM. (2) Kidney replaced by transplant: Plan: Baseline creatinine ~3.3 mg/dL. A3 albuminuria. Continue azathioprine and prednisone at current dose. (3) Anemia: Plan: Hgb dropped overnight. Epogen 56851 units provided 09/02. Suggest PRBC transfusion support today. Plan of care discussed with Dr. Duffy. Concern for possible GI loss. Bradley has a history of chronic LGIB secondary to hemorrhoids and friable tissue at rectum. (4) Coronary artery disease: Plan: s/p diagnostic cath 09/01. Planned staged procedure for RCA and LAD. AGNES to RCA completed 09/04. Tolerating metoprolol. Avoid RAASi for now due to kidney dysfunction. Admission and Anticipated Discharge Date Admission Date: August 28, 2023 Subjective No acute events overnight. Bradley continues to experience frequent loose bowel movements. Stool remains very watery. He denies any bright red blood. Stool appears slightly tarry. He denies abdominal pain. Heart rate notably increased when out of bed. He states that he could feel it racing. He denies lightheadedness, dizziness, syncope or presyncope. Appetite is good. Review of Systems Review of Systems: All systems reviewed & are unremarkable except as noted in HPI & below Physical Exam Constitutional: well developed; no acute distress Eyes: no scleral abnormality and no corneal abnormality Neck: normal visual inspection and trachea midline Respiratory: normal respiratory effort Auscultation: lungs clear to auscultation bilaterally Cardiovascular: Rate/Rhythm: regular rate Heart Sounds: normal S1 and normal S2 Extremities: + edema (trace BL LE) Musculoskeletal: Extremities: no cyanosis and no clubbing Skin: normal turgor Neurologic: Motor/Sensory: no tremor and no asterixis Psychiatric: Orientation: alert and oriented x 3 Results & Data Vital Signs (Past 12 Hours) Vital Signs Temp Pulse Pulse Pulse Resp BP Pulse Ox 09/06/23 07:55 36.4 C L 120 H 18 124/77 98 09/06/23 07:05 97 H 09/06/23 02:49 36.6 C 82 18 108/67 99 09/05/23 23:25 87 09/05/23 23:02 36.6 C 90 18 118/73 99 O2 Del Method 09/06/23 07:55 Room Air 09/06/23 07:05 09/06/23 02:49 Room Air 09/05/23 23:25 09/05/23 23:02 Room Air Laboratory Results Laboratory Results - last 24 hr 09/02/23 09/05/23 09/06/23 05:33 14:40 05:22 WBC 9.10 RBC 2.14 L Hgb 7.2 L Hct 23.4 L MCV 109.3 H MCH 33.6 MCHC 30.8 L RDW Std Deviation 67.1 H RDW Coeff of Zeus 17.0 H Plt Count 305 MPV 9.4 Absolute Nucleated RBC 0.08 Nucleated RBC % (auto) 0.9 Sodium 137 Potassium 3.6 Chloride 111 H Carbon Dioxide 16 L Anion Gap 10 BUN 53 H Creatinine 3.19 H Est Cr Clr Drug Dosing 24.4 Est GFR ( Amer) 23.5 Est GFR (Non-Af Amer) 20.3 BUN/Creatinine Ratio 16.6 Glucose 82 Calcium 6.7 L Stl C. diff Tox B Gene Negative Cdiff Gene Beta-(1,3)-D-Glucan <31 B-(1,3)-D-Glucan Intrp NEGATIVE PG Care Time/CCT Total # of Minutes Spent Total Time Spent with Patient: Total time spent is greater than 50% in coordination of care (as documented) at patient's floor/unit and/or counseling patient: Coding Level of Care Code 08446 SUB INP/OBS CARE 3/50MIN Diagnoses Acute kidney injury superimposed on chronic kidney disease N17.9; N18.9 Kidney replaced by transplant Z94.0 Anemia D64.9 Coronary artery disease I25.10
[2023-09-06] MEDS: PANTOprazole 40 MG in SYRINGE 0 ML IV SCH (09:53)
[2023-09-06 10:04] LABS: Base Excess VBG -7.3 mEq/L; HCO3 VBG 18 mmol/L; Oxygen Saturation VBG < 60.0 %; PCO2 VBG 35 mmHg (38-50); PO2 VBG < 20 mmHg; pH VBG 7.32 (7.36-7.41)
--- NOTE | 2023-09-06 10:08 | Gastrointestinal Consultation ---
Date of Consultation September 06, 2023 Assessment & Plan (1) Anemia: (2) Anticoagulant long-term use: Plan Patient is a 58 y.o. male with hx of renal transplant on chronic immunosuppression recently diagnosed with multifocal pneumonia and NSTEMI s/p PCI of RCA 2 days ago with worsened anemia and dark stools. Discussed with Dr. Duffy. Given medical complexity, would recommend avoidance of invasive GI work up. -Continue Protonix 40 mg IV BID. -Add Carafate 1 g ACHS. -Transfuse hgb >8. -Continue supportive care. Thank you for allowing us to participate in the care of this patient. If you have any questions or concerns, please do not hesitate to contact us. Supervising Physician Co-Signing Physician Notes Agree with NADINE Finley Abd: Soft, NT, ND, +BS Continue current therapy and supportive care No overt GI bleeding per patient today History of Present Illness Reason for Consultation: Anemia/dark stools Requesting Physician: Dr. Duffy Attending Physician: Alex Duffy History of Present Illness Patient is a 58 y.o. male with a complex history with progressive dyspnea on exertion, orthopnea, presyncope without syncope, and fatigue. He has a past medical history of renal transplant on prednisone, hypertension, DVT on warfarin, osteoarthritis, and first-degree AV block and prior GIB bleed years ago related to NSAID use. He was found to have abnormal imaging and treated for multifocal pneumonia given his immunosuppressed state on corticosteroids and AZA and abnormal ECG suggestive of occlusive disease. He is status post cardiac cath two days ago with PCI of the RCA. GI has been consulted today due to drop in H&H since the procedure and dark stools. Per patient, his stool is dark green and differs from the black and tarry stool he experienced during his previous GIB. He is having small caliber, loose stools with a frequency of ~5 times per day. States the loose stools have been ongoing for approximately 2 weeks. C Diff neg. No brbpr. States there is nausea but no vomiting. No abdominal pain. Most recent H&H is pending. Has been started on Pantoprazole 40 mg BID. Allergies Allergy/AdvReac Type Severity Reaction Status Date / Time NSAIDS (Non-Steroidal AdvReac Unknown GI bleeds Verified 08/16/23 09:56 Anti-Inflamma Home Medications Medication Instructions Recorded Confirmed Type folic acid 800 mcg tablet 800 mcg PO DAILY 10/25/19 08/28/23 History calcium carbonate 300 mg (750 mg) 300 mg PO BID PRN Heartburn 01/01/20 08/28/23 History chewable tablet (Tums) clindamycin 1 %-benzoyl peroxide 5 1 applic topical BID PRN acne #45 07/08/22 08/28/23 Rx % topical gel grams cyanocobalamin (vitamin B-12) 2,000 mcg PO DAILY 01/12/23 08/28/23 History 1,000 mcg tablet azathioprine 50 mg tablet 150 mg (3 x 50 mg) PO QAM #270 tabs 03/09/23 08/28/23 Rx prednisone 10 mg tablet 10 mg PO QAM #90 tabs 04/28/23 08/28/23 Rx gemfibrozil 600 mg tablet 600 mg PO HS 06/22/23 08/28/23 History calcitriol 0.25 mcg capsule 0.25 mcg PO HS #90 caps 06/29/23 08/28/23 Rx atorvastatin 20 mg tablet 20 mg PO QPM #90 tabs 07/05/23 08/28/23 Rx warfarin 5 mg tablet 5 mg PO DAILY #90 tabs 07/05/23 08/28/23 Rx amlodipine 5 mg tablet 5 mg PO DAILY #90 tabs 07/31/23 08/28/23 Rx lisinopril 20 mg tablet 20 mg PO QAM #90 tabs 07/31/23 08/28/23 Rx clopidogrel 75 mg tablet 75 mg PO QAM #30 tabs 09/05/23 Rx metoprolol tartrate 25 mg tablet 12.5 mg (1/2 x 25 mg) PO BID #30 09/05/23 Rx tabs Patient History Medical History Blood clotting disorder pt unable to specify -- dx after DVT LLE > 5 years ago - on warfarin Chronic steroid use Gout Osteoarthritis History of renal dialysis prior to transplant History of GI bleed GERD (gastroesophageal reflux disease) TUMS prn History of DVT (deep vein thrombosis) LLE - > 5 years ago - clotting disorder - on warfarin Anemia due to chronic kidney disease Anticoagulant long-term use Gout Hypercholesterolemia Hypertension Immunosuppressed status 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 Lynn Family History Brother Diabetes Mother Diabetes Other Coronary heart disease Heart disease Hypertension No family history of adverse response to anesthesia Social History Smoking Status: Never smoker Second Hand Exposure: No; Do You Dip or Chew Tobacco: No; Hx Alcohol Use: No Hx Substance Use: No Preferred Language: Somali Communication Ability: Effective Visual Impairment: No Limitations Hearing Ability: Normal Miller Apprentice Required: No Beliefs That Will Affect Care: None Current Living Situation: Spouse Current Living Situation Comment: home with current occupational status: employed Feels Safe at Home: Yes Assistive Devices: None Review of Systems Constitutional: as per Subjective / HPI Respiratory: as per Subjective / HPI Cardiovascular: as per Subjective / HPI Gastrointestinal: as per Subjective / HPI Physical Exam Constitutional: WD/WN, vitals as above Respiratory: normal respiratory effort, lungs clear to auscultation Cardiovascular: Rate/Rhythm: regular rate and regular rhythm Gastrointestinal (Abdomen): Inspection/Auscultation: + abdomen distended Percussion/Palpation: abdomen soft; abdomen nontender, no guarding and abdomen not rigid Results & Data Vital Signs (Past 12 Hours) Vital Signs Temp Pulse Pulse Pulse Resp BP Pulse Ox 09/06/23 07:55 36.4 C L 120 H 18 124/77 98 09/06/23 07:05 97 H 09/06/23 02:49 36.6 C 82 18 108/67 99 09/05/23 23:25 87 09/05/23 23:02 36.6 C 90 18 118/73 99 O2 Del Method 09/06/23 07:55 Room Air 09/06/23 07:05 09/06/23 02:49 Room Air 09/05/23 23:25 09/05/23 23:02 Room Air Diagnostic Findings Laboratory Results WBC 9.10 K/ul (4.8-10.8) 09/06/23 05:22 RBC 2.14 M/uL (4.70-6.10) L 09/06/23 05:22 Hgb 7.8 g/dl (14.0-18.0) L 09/06/23 09:20 Hct 25.7 % (42.0-52.0) L 09/06/23 09:20 MCV 109.3 fL (80.0-100.0) H 09/06/23 05:22 MCH 33.6 pg (25.0-34.0) 09/06/23 05:22 MCHC 30.8 g/dL (32.0-36.0) L 09/06/23 05:22 RDW Std Deviation 67.1 fL (36.4-46.3) H 09/06/23 05:22 RDW Coeff of Zeus 17.0 % (11.5-14.5) H 09/06/23 05:22 Plt Count 305 K/uL (130-400) 09/06/23 05:22 MPV 9.4 fL (9.4-12.4) 09/06/23 05:22 Immature Gran % (Auto) 1.5 % 09/04/23 09:19 Neut % (Auto) 77.1 % 09/04/23 09:19 Lymph % (Auto) 12.5 % 09/04/23 09:19 Foard % (Auto) 6.6 % 09/04/23 09:19 Eos % (Auto) 1.7 % 09/04/23 09:19 Baso % (Auto) 0.6 % 09/04/23 09:19 Reticulocyte % (Auto) 7.62 % (0.50-2.00) H 09/06/23 09:20 Neut # (Auto) 7.98 K/uL (1.40-6.50) H 09/04/23 09:19 Lymph # (Auto) 1.30 K/uL (1.20-3.40) 09/04/23 09:19 Foard # (Auto) 0.68 K/uL (0.11-0.59) H 09/04/23 09:19 Eos # (Auto) 0.18 K/uL (0.00-0.50) 09/04/23 09:19 Baso # (Auto) 0.06 K/uL (0.00-0.20) 09/04/23 09:19 Reticulocyte # 0.180 10^6/uL (0.020-0.100) H 09/06/23 09:20 Immature Gran # (Auto) 0.16 K/uL (0.01-0.20) 09/04/23 09:19 Absolute Nucleated RBC 0.08 K/uL (0.00-0.12) 09/06/23 05:22 Nucleated RBC % (auto) 0.9 % 09/06/23 05:22 Polychromasia 2+ 09/01/23 05:15 Anisocytosis Present 08/29/23 02:03 Tear Drop Cells 1+ 09/01/23 05:15 Echinocytes 1+ 08/30/23 05:27 PT 17.4 Seconds (9.0-12.0) H 08/31/23 05:23 INR 1.6 (0.9-1.1) H 08/31/23 05:23 APTT 33 Seconds (21-31) H 08/28/23 08:21 PTT Ratio 1.2 08/28/23 08:21 Activ Coag Time Kaolin 234 SECONDS (94-140) H 09/04/23 08:07 Heparin Anti-Xa, Unfract < 0.10 IU/ml (0.3-0.7) L 08/31/23 05:23 VBG pH 7.32 (7.36-7.41) L 09/06/23 09:20 VBG pCO2 35 mmHg (38-50) L 09/06/23 09:20 VBG pO2 < 20 mmHg 09/06/23 09:20 VBG HCO3 18 mmol/L 09/06/23 09:20 VBG O2 Saturation < 60.0 % 09/06/23 09:20 VBG Base Excess -7.3 mEq/L 09/06/23 09:20 Sodium 137 mmol/L (136-145) 09/06/23 05:22 Potassium 3.6 mmol/L (3.5-5.1) 09/06/23 05:22 Chloride 111 mmol/L (98-107) H 09/06/23 05:22 Carbon Dioxide 16 mmol/L (21-32) L 09/06/23 05:22 Anion Gap 10 (3-11) 09/06/23 05:22 BUN 53 mg/dl (6-23) H 09/06/23 05:22 Creatinine 3.19 mg/dl (0.6-1.4) H 09/06/23 05:22 Est Cr Clr Drug Dosing 24.4 ml/min 09/06/23 05:22 Est GFR ( Amer) 23.5 ml/min 09/06/23 05:22 Est GFR (Non-Af Amer) 20.3 ml/min 09/06/23 05:22 BUN/Creatinine Ratio 16.6 (10-20) 09/06/23 05:22 Glucose 82 mg/dl (70-99(Fasting)) 09/06/23 05:22 POC Glucose 101 mg/dl (70-99) H 09/05/23 08:28 Lactate 1.6 mmol/L (0.4-2.0) 08/28/23 09:28 Calcium 6.7 mg/dl (8.6-10.3) L 09/06/23 05:22 Phosphorus 3.7 mg/dl (2.5-4.9) 09/03/23 05:31 Magnesium 1.6 mg/dl (1.7-2.4) L 08/30/23 05:27 Iron 64 mcg/dl (35-175) 09/03/23 05:31 TIBC 204 mcg/dl (250-450) L 09/03/23 05:31 Unsaturated IBC 140 mcg/dl (155-355) L 09/03/23 05:31 Transferrin % Sat 31 % (20-50) 09/03/23 05:31 Ferritin 556.9 ng/ml (8-388) H 09/03/23 05:31 Total Bilirubin 0.3 mg/dl (0.2-1.0) 08/28/23 08:21 Direct Bilirubin 0.1 mg/dl (0-0.2) 08/28/23 08:21 AST 27 U/L (13-39) 08/28/23 08:21 ALT 15 U/L (7-52) 08/28/23 08:21 Alkaline Phosphatase 55 U/L (34-104) 08/28/23 08:21 Troponin I High Sens 6489.9 pg/ml (0-20) H* 08/29/23 10:16 C-Reactive Protein 0.83 mg/dl (0-0.5) H 09/03/23 05:31 B-Natriuretic Peptide 4669 pg/ml (0-100) H 08/28/23 11:58 Total Protein 6.8 gm/dl (6.0-8.3) 08/28/23 08:21 Albumin 3.1 gm/dl (3.4-5.0) L 09/03/23 05:31 Procalcitonin 0.09 ng/ml (0-0.5) 08/28/23 09:26 Urine Color Yellow 08/28/23 08:21 Urine Appearance Clear (Clear) 08/28/23 08:21 Urine pH 5.5 (4.5-7.5) 08/28/23 08:21 Ur Specific [place] 1.015 (1.000-1.030) 08/28/23 08:21 Urine Protein 2+ (Negative) H 08/28/23 08:21 Urine Glucose (UA) Negative (Negative) 08/28/23 08:21 Urine Ketones Negative (Negative) 08/28/23 08:21 Urine Blood Negative (Negative) 08/28/23 08:21 Urine Nitrite Negative (Negative) 08/28/23 08:21 Urine Bilirubin Negative (Negative) 08/28/23 08:21 Urine Urobilinogen Negative (Negative) 08/28/23 08:21 Ur Leukocyte Esterase Negative (Negative) 08/28/23 08:21 Urine RBC 0-4 /hpf (0-4) 08/28/23 08:21 Urine WBC 0-5 /hpf (0-5) 08/28/23 08:21 Ur Epithelial Cells 0-5 /lpf (0-5) 08/28/23 08:21 Urine Bacteria Negative (Negative) 08/28/23 08:21 Nasal Screen MRSA (PCR) Negative (Negative) 08/28/23 11:20 Stool Occult Bld Scrn Positive (Negative) A 08/31/23 06:00 Stl C. diff Tox B Gene Negative Cdiff Gene (Neg) 09/05/23 14:40 SARS-CoV-2 (PCR) NEGATIVE (Negative) 08/28/23 08:20 Influenza Type A (PCR) Negative (Neg) 08/28/23 08:20 Influenza Type B (PCR) Negative (Neg) 08/28/23 08:20 RSV (RT-PCR) Negative (Neg) 08/28/23 08:20 Beta-(1,3)-D-Glucan <31 pg/mL 09/02/23 05:33 B-(1,3)-D-Glucan Intrp NEGATIVE 09/02/23 05:33 Blood Type B Negative 08/28/23 14:16 Blood Type Recheck B Negative 08/28/23 18:10 Antibody Screen NEGATIVE 08/28/23 14:16 Crossmatch See Detail 09/06/23 09:20 Impressions Chest X-Ray 08/28/23 08:11 XR chest 1V portable HISTORY: 58 years-old Male Sepsis acute sepsis COMPARISON: 06/22/2023 TECHNIQUE: AP view of the chest FINDINGS: Cardiac silhouette is enlarged. Asymmetric right hilar prominence. Right infrahilar and bibasilar airspace opacities. Pulmonary vascular congestion. No pneumothorax. Probable trace pleural effusions. Bones appear grossly intact with degenerative changes of the shoulders and spine. A peripherally calcified vascular structure is again noted within the left axilla measuring 3.1 cm transversely. IMPRESSION: 1. Cardiomegaly with pulmonary vascular congestion. 2. Bibasilar and right perihilar opacities are suggestive of multifocal pneumonia. Follow-up imaging in order to document resolution is recommended. 3. Probable trace pleural effusions. ACT 112: Negative or not required by law. The above report was generated using voice recognition software. It may contain grammatical, syntax or spelling errors. Electronically signed by: Mehdi Ksier M.D. 08/28/2023 9:[address] 08/30/23 19:44 Exam(s): CT CHEST Without Contrast EXAM: CT Chest Without Intravenous Contrast CLINICAL HISTORY: Reason for exam: renal transplant, abn cxr not acting like pnx. TECHNIQUE: Axial computed tomography images of the chest without intravenous contrast. CTDI is 17.66 mGy and DLP is 584.08 mGy-cm. Automated exposure control was utilized for the study. A dose lowering technique was utilized adhering to the principles of ALARA. COMPARISON: None. FINDINGS: Lungs: Bilateral lower lobe atelectasis, slightly more prominent on the right. Remainder lung segundo are clear. No mass. Pleural space: Minimal bilateral pleural effusions, slightly more prominent on the right compared to the left. No pneumothorax. Heart: Moderate cardiomegaly with coronary artery calcifications . No significant pericardial effusion. Bones/joints: Unremarkable. No acute fracture. No dislocation. Soft tissues: Unremarkable. Vasculature: Atherosclerotic disease of aorta with no aneurysm. Lymph nodes: Unremarkable. No enlarged lymph nodes. Kidneys and ureters: Upper abdomen reveals bilateral renal atrophy. Left upper renal pole simple cyst measuring 2.0 cm with no further follow- up imaging recommended. IMPRESSION: Bilateral lower lobe atelectasis with minimal effusions, finding slightly more prominent on the right compared to the left. Otherwise no acute cardiopulmonary disease. Electronically signed by: Oliva Alford MD 08/30/23 20:40 PM PG Care Time/CCT Total # of Minutes Spent Total Time Spent with Patient: Total time spent is greater than 50% in coordination of care (as documented) at patient's floor/unit and/or counseling patient: Coding Level of Care Code 51385 INT INP/OBS CARE 3/75MIN Diagnoses Anemia D64.9 Anticoagulant long-term use Z79.01
[2023-09-06 10:10] LABS: Hematocrit (blood only) 25.7 % (42.0-52.0); Hemoglobin 7.8 g/dl (14.0-18.0); Reticulocyte % 7.62 % (0.50-2.00); Reticulocytes # 0.18 10^6/uL (0.020-0.100)
[2023-09-06 10:46] LABS: Ferritin 465.1 ng/ml (8-388)
[2023-09-06] MEDS: SUCRALFATE 1 GM/10 ML UDC PO SCH (12:25)
[2023-09-06 16:28] LABS: Hematocrit (blood only) 28.8 % (42.0-52.0); Hemoglobin 8.8 g/dl (14.0-18.0)
[2023-09-06 21:46] LABS: Hematocrit (blood only) 28.4 % (42.0-52.0); Hemoglobin 9.1 g/dl (14.0-18.0)
--- NOTE | 2023-09-06 23:23 | Hospitalist Progress Note ---
Date of Service September 06, 2023 Assessment & Plan (1) Anemia: Plan: Hgb 9.2 and HCT 29.1 on arrival; may be secondary to acute on chronic CKD Clinically, patient endorses some dizziness with standing In the setting of type II NM, transfuse to hemoglobin target >8 g/dL Hx of blood transfusion approximately 10 years ago Concern with transfusion and possible need for future transplant, trying to be conservative, did have epo 08/30 per nephrolgy Blood informed consent obtained 2 units PRBCs ordered; will continue to monitor. On 09/06 Anemia worsened, hemoglobin dropped 2 points. will transfuse additional unit of prbc added PPI and sucralfate consulted GI. Discharged held (2) Multifocal pneumonia: Plan: Symptoms began 08/24, immunosuppressed with azathioprine for renal transplant Procalcitonin WNL, COVID, RSV, flu negative CXR suggests multifocal pneumonia Blood cultures , negative to date MRSA swab negative not acting like pneumonia with non productive cough CT chest was nehgative. completed course of Zosyn 4.5mg IV q12h Doxycycline 100 mg IV BID Patient on room air. will continue to monitor. Patient appears to be tolerating this well. (3) Type 2 NM (myocardial infarction): Plan: Clinically, patient denies chest pain, left arm pain, and left jaw pain/pressure Bradycardia , worsened baseline changes with inferior wall changes, concern for IWMI Echo with depressed EF from 07/15. perhaps Inferior wall hypokinesis Troponin grossly elevated at 10,072.9-->7439 Per cardiology: patient will require a catheterization, staged PCI for 09/04 (4) Kidney replaced by transplant: Plan: Hx of renal transplant in 1979 Continue prednisone, consider stress dosing Per nephrology, okay to continue azathioprine (5) Acute kidney injury superimposed on chronic kidney disease: Plan: Per patient, poor oral intake and GI losses since 08/24 Avoid nephrotoxic agents Hold lisinopril Nephrology consulted creatinine improving. Bicarb has lowered again to 16, despite bicarb supplementation may be due to worsening anemia and poor perfusion. will monitor (6) History of DVT (deep vein thrombosis): Plan: Patient normally takes warfarin; Hold warfarin Heparin low-dose without bolus started in the ED Repeat a.m. PT/INR (7) Hypercholesterolemia: Plan: Continue atorvastatin Hold gemfibrozil due to kidney function Plan DNR/DNI VTE PPx: heparin stopped Given anemia, and metabolic acidosis, will hold discharge today. Admission and Anticipated Discharge Date Admission Date: August 28, 2023 Subjective Patient reports no new symptoms. Review of Systems Review of Systems: All systems reviewed & are unremarkable except as noted in HPI & below Physical Exam Physical Exam: Patient is comfortable cardiac RRR abd: soft slightly distended Results & Data Results & Data Vital Signs (Past 12 Hours) Vital Signs Temp Pulse Pulse Pulse Resp BP BP 09/06/23 23:05 36.6 C 82 18 123/78 09/06/23 20:00 09/06/23 19:50 36.7 C 99 H 18 135/94 09/06/23 15:50 36.6 C 96 H 18 135/88 09/06/23 14:45 36.9 C 101 H 18 139/97 09/06/23 14:20 36.9 C 98 H 18 138/92 09/06/23 13:20 36.9 C 92 H 18 125/85 09/06/23 12:50 36.9 C 98 H 19 129/80 09/06/23 12:35 37.0 C 96 H 19 134/87 09/06/23 12:18 36.8 C 105 H 19 131/88 09/06/23 11:24 36.8 C 96 H 18 115/76 Pulse Ox O2 Del Method 09/06/23 23:05 99 Room Air 09/06/23 20:00 Room Air 09/06/23 19:50 95 Room Air 09/06/23 15:50 98 Room Air 09/06/23 14:45 97 09/06/23 14:20 98 09/06/23 13:20 98 09/06/23 12:50 96 09/06/23 12:35 97 09/06/23 12:18 97 09/06/23 11:24 97 Room Air PG Care Time/CCT Total # of Minutes Spent Total Time Spent with Patient: Total time spent is greater than 50% in coordination of care (as documented) at patient's floor/unit and/or counseling patient: Coding Level of Care Code 77787 SUB INP/OBS CARE 2/35MIN Diagnoses Anemia D64.9 Multifocal pneumonia J18.9 Type 2 NM (myocardial infarction) I21.A1 Kidney replaced by transplant Z94.0 Acute kidney injury superimposed on chronic kidney disease N17.9; N18.9 History of DVT (deep vein thrombosis) Z86.718 Hypercholesterolemia E78.00
--- NOTE | 2023-09-07 07:17 | Hospitalist Progress Note ---
Date of Service September 07, 2023 Assessment & Plan (1) Multifocal pneumonia: Plan: Symptoms began 08/24, immunosuppressed with azathioprine for renal transplant Procalcitonin WNL, COVID, RSV, flu negative B 1,3 glucan negative CXR suggests multifocal pneumonia Blood cultures , negative to date MRSA swab negative completed antibiotics Patient on room air. will continue to monitor. Patient appears to be tolerating this well. (2) Type 2 OR (myocardial infarction): Plan: Clinically, patient denies chest pain, left arm pain, and left jaw pain/pressure Bradycardia , worsened baseline changes with inferior wall changes, concern for IWMI Echo with depressed EF from 07/15. perhaps Inferior wall hypokinesis Troponin grossly elevated at 10,072.9 on admission Per cardiology:[facility] with severe RCA and LAD disease, recommended staged PCI, RCA appears acute and will do first, allowing kidney function recovery recc high dose statin,DAPT (3) Kidney replaced by transplant: Plan: Hx of renal transplant in 1979 Continue prednisone, Per nephrology, okay to continue azathioprine (4) Acute kidney injury superimposed on chronic kidney disease: Plan: resolved returns to CKD4 (5) Anemia: Plan: persistent anemia, on Epo, previous lower GI blood loss, GI eval with no recommendation to rescope at this time Hx of blood transfusion approximately 10 years ago on protonix and sulcrafate transfused one unit 09/06/23 (6) History of DVT (deep vein thrombosis): Plan: Patient normally takes warfarin; Hold warfarin Heparin low-dose without bolus started in the ED (7) Hypercholesterolemia: Plan: Continue atorvastatin Hold gemfibrozil due to kidney function Plan DNR/DNI Admission and Anticipated Discharge Date Admission Date: August 28, 2023 Results & Data Results & Data Vital Signs (Past 12 Hours) Vital Signs Temp Pulse Pulse Resp BP Pulse Ox O2 Del Method 09/07/23 03:01 97.9 F 84 18 123/80 93 Room Air 09/06/23 23:05 97.9 F 82 18 123/78 99 Room Air 09/06/23 21:59 76 09/06/23 20:00 Room Air 09/06/23 19:50 98.1 F 99 H 18 135/94 95 Room Air PG Care Time/CCT Total # of Minutes Spent Total Time Spent with Patient: Total time spent is greater than 50% in coordination of care (as documented) at patient's floor/unit and/or counseling patient: Coding Diagnoses Multifocal pneumonia J18.9 Type 2 OR (myocardial infarction) I21.A1 Kidney replaced by transplant Z94.0 Acute kidney injury superimposed on chronic kidney disease N17.9; N18.9 Anemia D64.9 History of DVT (deep vein thrombosis) Z86.718 Hypercholesterolemia E78.00
[2023-09-07 08:17] LABS: Base Excess VBG -7.9 mEq/L; HCO3 VBG 18 mmol/L; Oxygen Saturation VBG < 60.0 %; PCO2 VBG 36 mmHg (38-50); PO2 VBG 26 mmHg
[2023-09-07 08:25] LABS: Hematocrit (blood only) 29.7 % (42.0-52.0); Hemoglobin 9.2 g/dl (14.0-18.0); Mean Corpuscular Hemoglobin 32.9 pg (25.0-34.0); Mean Corpuscular Volume 106.1 fL (80.0-100.0); Mean Platelet Volume 8.9 fL (9.4-12.4); Nucleated RBC # (auto) 0.05 K/uL (0.00-0.12); Nucleated RBC % (auto) 0.6 %; Platelet Count 297 K/uL (130-400); RDW Coefficient of Variation 19.9 % (11.5-14.5); RDW Standard Deviation 76.1 fL (36.4-46.3); White Blood Count 8.42 K/ul (4.8-10.8)
[2023-09-07 08:39] LABS: BUN Creatinine Ratio 15.1 (10-20); Calcium 7.2 mg/dl (8.6-10.3); Est GFR (African American) 24.3 ml/min; Potassium 3.7 mmol/L (3.5-5.1)
--- NOTE | 2023-09-07 09:52 | Nephrology Progress Note ---
Date of Service September 07, 2023 Assessment & Plan (1) Acute kidney injury superimposed on chronic kidney disease: Plan: KELSEA attributed to ATN in the setting of NSTEMI and multifocal pneumonia. Volume status acceptable. Creatinine continues to slowly improve. Electrolytes normal. Medications are appropriate for kidney function. Maintain renal diet. Continue Renvela QAC. Continue NaHCO3 1300 BID. Repeat metabolic profile early next week. Follow up in the nephrology clinic with me within 2 weeks of hospital discharge. (2) Kidney replaced by transplant: Plan: Baseline creatinine ~3.3 mg/dL. A3 albuminuria. Continue azathioprine and prednisone at current dose. (3) Anemia: Plan: Hgb stable overnight following PRBC transfusion. Epogen 98561 units provided 09/02. 1 u PRBC transfusion provided yesterday. GI consultation appreciated. Bradley has a history of chronic LGIB secondary to hemorrhoids and friable tissue at rectum. (4) Coronary artery disease: Plan: s/p diagnostic cath 09/01. Planned staged procedure for RCA and LAD. AGNES to RCA completed 09/04. Metoprolol was started at a low dose due to symptomatic bradycardia on admission in the setting of RCA disease. HR now consistently 90-100 bpm and Bradley is tolerating medication very well. Avoid RAASi for now due to kidney dysfunction. Admission and Anticipated Discharge Date Admission Date: August 28, 2023 Subjective No acute events overnight. Bradley feels reasonably well this AM. Bowel movements remain loose but fewer in the past 24 hours. He continues to deny any obvious blood in the stool. Denies notable melena. Bradley denies chest pains or palpitations. He states that he can feel that this heart rate is running higher. He denies dyspnea. He is not experiencing lightheadedness or dizziness. He denies notable fluid retention or edema. I discussed the plan of care with Dr. Levy this morning. Review of Systems Review of Systems: All systems reviewed & are unremarkable except as noted in HPI & below Physical Exam Constitutional: well developed; no acute distress Eyes: no scleral abnormality and no corneal abnormality Neck: normal visual inspection and trachea midline Respiratory: normal respiratory effort Auscultation: lungs clear to auscultation bilaterally Cardiovascular: Rate/Rhythm: regular rate Heart Sounds: normal S1 and normal S2 Extremities: + edema (trace BL LE) Musculoskeletal: Extremities: no cyanosis and no clubbing Skin: normal turgor Neurologic: Motor/Sensory: no tremor and no asterixis Psychiatric: Orientation: alert and oriented x 3 Results & Data Vital Signs (Past 12 Hours) Vital Signs Temp Pulse Pulse Pulse Resp BP Pulse Ox 09/07/23 07:50 36.7 C 109 H 18 146/94 H 97 09/07/23 03:01 36.6 C 84 18 123/80 93 09/06/23 23:05 36.6 C 82 18 123/78 99 09/06/23 21:59 76 O2 Del Method 09/07/23 07:50 Room Air 09/07/23 03:01 Room Air 09/06/23 23:05 Room Air 09/06/23 21:59 Laboratory Results Laboratory Results - last 24 hr 09/06/23 09/06/23 09/06/23 09:20 16:09 21:01 WBC RBC Hgb 7.8 L 8.8 L 9.1 L Hct 25.7 L 28.8 L 28.4 L MCV MCH MCHC RDW Std Deviation RDW Coeff of Zeus Plt Count MPV Reticulocyte % (Auto) 7.62 H Reticulocyte # 0.180 H Absolute Nucleated RBC Nucleated RBC % (auto) VBG pH 7.32 L VBG pCO2 35 L VBG pO2 < 20 VBG HCO3 18 VBG O2 Saturation < 60.0 VBG Base Excess -7.3 Sodium Potassium Chloride Carbon Dioxide Anion Gap BUN Creatinine Est Cr Clr Drug Dosing Est GFR ( Amer) Est GFR (Non-Af Amer) BUN/Creatinine Ratio Glucose Calcium Iron 53 TIBC 185 L Unsaturated IBC 132 L Transferrin % Sat 29 Ferritin 465.1 H Stool Occult Bld Scrn Blood Type B Negative Antibody Screen NEGATIVE Crossmatch See Detail 09/06/23 09/07/23 09/07/23 Unknown 08:04 08:07 WBC 8.42 RBC 2.80 L Hgb 9.2 L Hct 29.7 L MCV 106.1 H MCH 32.9 MCHC 31.0 L RDW Std Deviation 76.1 H RDW Coeff of Zeus 19.9 H Plt Count 297 MPV 8.9 L Reticulocyte % (Auto) Reticulocyte # Absolute Nucleated RBC 0.05 Nucleated RBC % (auto) 0.6 VBG pH 7.30 L VBG pCO2 36 L VBG pO2 26 VBG HCO3 18 VBG O2 Saturation < 60.0 VBG Base Excess -7.9 Sodium 139 Potassium 3.7 Chloride 111 H Carbon Dioxide 18 L Anion Gap 10 BUN 47 H Creatinine 3.11 H Est Cr Clr Drug Dosing 25.0 Est GFR ( Amer) 24.3 Est GFR (Non-Af Amer) 21.0 BUN/Creatinine Ratio 15.1 Glucose 105 H Calcium 7.2 L Iron TIBC Unsaturated IBC Transferrin % Sat Ferritin Stool Occult Bld Scrn Positive A Blood Type Antibody Screen Crossmatch PG Care Time/CCT Total # of Minutes Spent Total Time Spent with Patient: Total time spent is greater than 50% in coordination of care (as documented) at patient's floor/unit and/or counseling patient: Coding Level of Care Code 95055 SUB INP/OBS CARE 3/50MIN Diagnoses Acute kidney injury superimposed on chronic kidney disease N17.9; N18.9 Kidney replaced by transplant Z94.0 Anemia D64.9 Coronary artery disease I25.10
--- NOTE | 2023-09-07 18:50 | Discharge Summary ---
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 He presented for KNOX, diarrhea, and dizziness that started on 08/24. Patient reports that he was around a sick coworker this past week. He then developed worsening KNOX when walking to the bathroom. He denies SOB at rest. SOB is worse when lying flat and he reports that he slept in his recliner on . No supplemental oxygen at home. No ambulatory assist devices. He denies history of pulmonary illness such as COPD, asthma. He denies smoking, tobacco use, and alcohol use. Patient had his renal transplant in 1979, when he was in 10th grade. He had previously been on dialysis starting in seventh grade. He follows with Dr. Canela for nephrology. He denies history of cardiac events such as MIs, bypasses, and stents. His diarrhea has improved since it started on , but he notes it is still runny; nonbloody; he is not taking anything additional at home for it. He endorses dizziness with standing that started on . He took his regular medications this morning. Patient recently decreased his propranolol from 160 mg twice daily to 80 mg daily approximately 1.5 months ago. He had a stress test and echo performed in June. Of note, he has been holding his amlodipine since due to low blood pressure and swelling in his lower extremities. His heart rate has also been markedly lower than it was during his hospitalization in June for COVID. Patient is bradycardic at 41 bpm at time of admission; normotensive; 98% SpO2 on room air; vitals otherwise stable. ED course: Zosyn 4.5 g IV NSS 1000 mL IV ROS: Patient endorses clammy, KNOX, diarrhea, and swelling in legs. Patient denies fever, chills, sweating, body aches, chest pain, chest palpitations, SOB at rest, pressure in L arm or jaw, abdominal pain, N/V, dysuria, burning with urination, blood in the urine/stool, or numbness/tingling/pain in legs. Principal Diagnosis multifocal pneumonia resolved martine on ckd 4 in presence of renal transplant acs with n stemi and LHC with stent to RCA and planned staged stent to LAD Discharge Exam Patient is slightly anxious but in no acute distress. As of some minor recurrence of loose bowels but given his recent history of antibiotics does not appear significant to be C. difficile and this was tested and found negative on September 05 Cardiac exam is regular with no murmurs or rubs Lungs are clear with diminished breath sounds at the bases Extremities are with trace to 1+ edema now wearing NATALIE hose Discharge Data Allergies Allergy/AdvReac Type Severity Reaction Status Date / Time NSAIDS (Non-Steroidal AdvReac Unknown GI bleeds Verified 08/16/23 09:56 Anti-Inflamma Consultations 08/28/23 09:39 ED Decision to Admit Stat 08/28/23 10:39 Consult Cardiology Stat Consult Nephrology Routine 09/06/23 09:20 Consult Gastroenterology Routine Procedures Performed Operation Date: 09/04/23 07:00 Actual Procedures p Cineradiography w/Routine Exam - Tha Tran MD, PhD p Drug Eluting Stent SGl Vessel - Tha Tran MD, PhD s Ultrasound Vascular Access - Tha Tran MD, PhD Ordered Studies 08/30/23 07:12 CL Cath Imgs for PACS use only Routine 08/30/23 19:44 CT chest diagnostic wo con Routine 09/01/23 06:58 CL Cath Imgs for PACS use only Routine 09/04/23 06:47 CL Cath Imgs for PACS use only Stat Hospital Course (1) Type 2 NV (myocardial infarction): Clinically, patient denies chest pain, left arm pain, and left jaw pain/pressure Bradycardia , worsened baseline changes with inferior wall changes, concern for IWMI Echo with depressed EF from 07/15. perhaps Inferior wall hypokinesis Troponin grossly elevated at 10,072.9-->7439 Per cardiology: patient will require a catheterization, underwent left heart cath on 09/01, stent placement 09/04 with drug-eluting stent to RCA plans for future stenting to LAD Patient's renal function recovered after stenting. Diagnosed with NSTEMI discharged with Plavix/aspirin metoprolol atorvastatin continues on gemfibrozil (2) Anemia: Hgb 9.2 and HCT 29.1 on arrival; may be secondary to acute on chronic CKD Clinically, patient endorses some dizziness with standing In the setting of type II NV, transfuse to hemoglobin target >8 g/dL Hx of blood transfusion approximately 10 years ago On 09/06 will transfuse prbc added PPI and sucralfate consulted GI. No plans for intervention given cardiac status unless risk of life or limb (3) Multifocal pneumonia: Symptoms began 08/24, immunosuppressed with azathioprine for renal transplant Procalcitonin WNL, COVID, RSV, flu negative CXR suggests multifocal pneumonia Blood cultures , negative to date MRSA swab negative completed course of Zosyn 4.5mg IV q12h Doxycycline 100 mg IV BID Patient on room air. (4) Kidney replaced by transplant: Hx of renal transplant in 1979 Continue prednisone, consider stress dosing Per nephrology, okay to continue azathioprine (5) Acute kidney injury superimposed on chronic kidney disease: Per patient, poor oral intake and GI losses since 08/24 Nephrology consulted following closely as an outpatient Hold lisinopril at time of discharge repeat lab work in 2 days (6) History of DVT (deep vein thrombosis): Patient normally takes warfarin; Will resume warfarin understands will need to hold this medication for outpatient future cardiac catheterizations (7) Hypercholesterolemia: Continue atorvastatin Crace to high-dose Hold gemfibrozil due to kidney function Plan DNR/DNI Total Time Total Time Spent Total Time Spent (In Minutes): It required greater than 30 minutes to prepare this patient for discharge. Discharge Plan Discharge Items Patient Disposition: Home - Self-Care Reason For Visit: KNOX,DIARRHEA,WEAKNESS Discharge Diagnosis: NSTEMI SEVERE CAD S/P PCI ACUTE ON CHRONIC RENAL FAILURE BRADYCARDIA MULTIFOCAL PNEUMONIA Condition on Discharge: Good Activity: Per Instructions section Non-emergency contact: Mineral[employer] Teacher Call non-emergency contact if: you have any medication questions, your symptoms worsen, your pain is not controlled, you have a fever, your wound has increased redness and your wound has increased drainage Follow-up/Referrals: Tha Tran MD, PhD [Physician] - 09/18/23 9:00 am Jorge Luis Noyola DO [Primary Care Provider] - (Dr. Noyola's office will reach out to you to schedule follow up appointment.) Diet: Dialysis Renal and Heart Healthy Ambulatory Orders: Basic Metabolic Panel (Routine) Timeframe: 2 Days Location: Determined by Patient Ordered By: Jeronimo Levy Complete Blood Count with Diff (Routine) Timeframe: 2 Days Location: Determined by Patient Ordered By: Jeronimo Lopze Attending Provider Instructions: ACTIVITY RECOMMENDATIONS: It is common to feel weak and fatigue for a few days. * Do not drive or operate any motorized equipment for the next three days. * Limit stair usage (2 or 3 trips a day only) for the next three days. * Do not lift anything heavier than 10 pounds for the next three days. * Do not engage in vigorous exercise or any sports for the next five days. * You may shower the day after your procedure, but do not immerse the area for three days. Cleanse the site gently with soap and water. SPECIAL CARE INSTRUCTIONS: * You may replace the pressure dressing or band-aid the morning after the procedure. * After your procedure, it is normal to have a small bruise or small lump at the site. Examine your site daily for any change in the bruise or lump, redness, swelling, drainage or numbness. Notify your doctor if any change. BLEEDING: * If there is a small amount of bleeding at the site, lie down and apply firm pressure with a clean cloth for ten minutes. When the bleeding stops, lie quietly keeping the procedure limb straight for six hours. Notify your doctor as soon as possible. * If the bleeding does not stop after ten minutes or if there is a large amount of bleeding or spurting, call 911 immediately. Continue to lie down and hold firm pressure until help arrives. SKIN IRRITATION: * You may experience some redness and/or swelling in the area where radiation was administered. If any skin irritation occurs, please contact your family physician. FOLLOW UP VISIT: Keep any scheduled doctor appointments. Pending Studies at Discharge: No Stand-Alone Forms: My [employer], Smoking Cessation Medications and DC Order Prescriptions: New clopidogrel 75 mg Tablet 75 mg PO QAM Qty: 30 11RF metoprolol tartrate 25 mg Tablet 12.5 mg PO BID Qty: 30 11RF quetiapine 25 mg Tablet 25 mg PO HS Qty: 30 1RF famotidine [Pepcid] 20 mg tablet 20 mg PO BID 42 Days Qty: 84 0RF atorvastatin 40 mg tablet 40 mg PO DAILY Qty: 90 3RF aspirin 81 mg capsule 81 mg PO DAILY Qty: 90 3RF Continued clindamycin-benzoyl peroxide 1-5 % gel 1 applic TOP BID PRN (Reason: acne) Qty: 45 3RF azathioprine 50 mg tablet 150 mg PO QAM Qty: 270 3RF prednisone 10 mg tablet 10 mg PO QAM Qty: 90 3RF calcitriol 0.25 mcg capsule 0.25 mcg PO HS Qty: 90 3RF warfarin 5 mg tablet 5 mg PO DAILY Qty: 90 3RF Protocol: Dose Management Condition: Monday Dose/Route: 5 mg Instruction: 1 x 5 mg tablet Condition: Monday Dose/Route: 2.5 mg Instruction: 0.5 x 5 mg tablets Condition: Monday Dose/Route: 5 mg Instruction: 1 x 5 mg tablet Condition: Monday Dose/Route: 5 mg Instruction: 1 x 5 mg tablet Condition: Dose/Route: 5 mg Instruction: 1 x 5 mg tablet Condition: Monday Dose/Route: 2.5 mg Instruction: 0.5 x 5 mg tablets Condition: Monday Dose/Route: 5 mg Instruction: 1 x 5 mg tablet Protocol Text: Adjustment Start Date: Monday07/28/23 INR Value: 2.8 INR Date: 07/28/23 Recheck Date: 08/25/23 Rx Instructions: Take 2.5mg on Mon/Mon 2.5mg, and take 5mg all other days cyanocobalamin (vitamin B-12) 1,000 mcg tablet 2,000 mcg PO DAILY folic acid 800 mcg tablet 800 mcg PO DAILY calcium carbonate [Tums] 300 mg (750 mg) Tablet,Chewable 300 mg PO BID PRN (Reason: Heartburn) gemfibrozil 600 mg tablet 600 mg PO HS Held lisinopril 20 mg tablet 20 mg PO QAM Qty: 90 0RF Hold Instructions: Resume on 09/14/23. Discontinued amlodipine 5 mg tablet 5 mg PO DAILY Qty: 90 3RF propranolol 80 mg capsule,extended release 24 hr 80 mg PO DAILY Qty: 90 3RF Hold Instructions: Home Medication placed on hold at Doctor's office Discharge Orders: Discharge Order (Routine); Ordered 09/07/23 Ordered By: Jeronimo Levy Admission Data Admit Date/Time: 08/28/23 10:39 Attending Provider: Jeronimo Levyit Provider: Hayes Burgess Primary Care Provider: Jorge Luis Noyola Other Providers: Tha Tran; Sue Young; Emmett Mendez; Shakira Decker; Rodrick Correa; Patricia Ernst; Emily Manzano; Laly Angela; Antonietta Enrique; Ant Anderson; Joao aWrner; Swapna Dolan; Binu Geronimo; Anahi Oliveros; Marcia Watson; Jacqueline Price; Dori Brown; Flor Mccloud; Delta Manzo; Elver East; Pastor Colon; Tamera Gregg; Chuy Zavaleta Jr Other Interventions: Discharge Summary Assessment (RN) Last Done: 09/07/23 15:46 Coding Level of Care Code 16761 INP/OBS DISCH >30 MIN Diagnoses Type 2 NV (myocardial infarction) I21.A1 Anemia D64.9 Multifocal pneumonia J18.9 Kidney replaced by transplant Z94.0 Acute kidney injury superimposed on chronic kidney disease N17.9; N18.9 History of DVT (deep vein thrombosis) Z86.718 Hypercholesterolemia E78.00
[2023-09-07] MEDS ORDERED: ATORVASTATIN 40 MG TAB PO SCH (21:00)
== END 2023-09-07 17:29 | disposition home or self-care (01) | DRG 981 ==
LOC: ED 08:00 → SUATTDRO 10:39 → EDINP 10:39 → 2E 14:37
PROC: CLB.CCO (2023-09-01 11:00)

== ENCOUNTER 2024-08-27 19:52 | Inpatient (IN) ==
[2024-08-27 20:28] LABS: Basophils # (auto) 0.02 K/uL (0.00-0.20); Basophils % (auto) 0.2 %; Eosinophils # (auto) 0.01 K/uL (0.00-0.50); Eosinophils % (auto) 0.1 %; Hematocrit (blood only) 38.3 % (42.0-52.0); Hemoglobin 12.3 g/dl (14.0-18.0); Lymphocytes # (auto) 0.69 K/uL (1.20-3.40); Lymphocytes % (auto) 7.2 %; Mean Corpuscular Hgb Conc 32.1 g/dL (32.0-36.0); Mean Corpuscular Volume 102.7 fL (80.0-100.0); Mean Platelet Volume 9.3 fL (9.4-12.4); Monocytes # (auto) 0.53 K/uL (0.11-0.59); Monocytes % (auto) 5.5 %; Neutrophils # (auto) 8.23 K/uL (1.40-6.50); Platelet Count 300 K/uL (130-400); RDW Standard Deviation 63.8 fL (36.4-46.3); Red Blood Count 3.73 M/uL (4.70-6.10); White Blood Count 9.58 K/ul (4.8-10.8)
[2024-08-27 20:44] LABS: Albumin Globulin Ratio 1.2 (0.9-2); Albumin Level 4.2 gm/dl (3.4-5.0); BUN Creatinine Ratio 17.8 (10-20); Bilirubin,Total 0.6 mg/dl (0.2-1.0); Calcium 9.8 mg/dl (8.6-10.3); Creatinine Clr Calc Pharmacy 20.2 ml/min; Globulin 3.5 gm/dl (2.5-4.0); Potassium 4.5 mmol/L (3.5-5.1); Total Protein 7.7 gm/dl (6.0-8.3)
--- NOTE | 2024-08-27 20:56 | CT Scan Report ---
Exam(s): CT ABDOMEN + PELVIS Without Contrast EXAM: CT Abdomen and Pelvis Without Intravenous Contrast CLINICAL HISTORY: Reason for exam: 9cm aneursym anastomatic artery. TECHNIQUE: Axial computed tomography images of the abdomen and pelvis without intravenous contrast. CTDI is 23.24 mGy and DLP is 943.89 mGy-cm. Automated exposure control was utilized for the study. A dose lowering technique was utilized adhering to the principles of ALARA. COMPARISON: None FINDINGS: Lung bases: Unremarkable. No mass. No consolidation. Heart: Cardiomegaly. ABDOMEN: Liver: Unremarkable. Gallbladder and bile ducts: Unremarkable. No calcified stones. No ductal dilation. Pancreas: Cystic lesions in the pancreas which could be further evaluated with MRI if clinically indicated. No ductal dilation. Spleen: Unremarkable. No splenomegaly. Adrenals: Unremarkable. No mass. Kidneys and ureters: Atrophy of the [place] kidneys. Bilateral renal cysts. No further follow-up necessary. No hydronephrosis or stone. Right lower quadrant transplant kidney which is atrophic. Probable small cyst which could be further evaluated with ultrasound if clinically indicated. Stomach and bowel: Small to moderate umbilical hernia containing nonobstructed colon. Diverticulosis without evidence of diverticulitis. No small bowel obstruction. PELVIS: Appendix: Normal appendix. Bladder: Unremarkable. No stones. Reproductive: Unremarkable as visualized. ABDOMEN and PELVIS: Intraperitoneal space: Unremarkable. No free air. No significant fluid collection. Bones/joints: Right hip arthroplasty causes streak artifact and limits evaluation of portions of the pelvis. Degenerative changes of the spine. Grade 1 anterolisthesis of L4 on L5 and L5 on S1. No acute fracture. No dislocation. Soft tissues: Small fat-containing left inguinal hernia. Postsurgical changes in the right inguinal region. Vasculature: Nonspecific hyperdense lesion in the right lower quadrant near the opening of the right inguinal canal with thin peripheral calcification, measuring approximately 8.9 x 8.1 x 7.8 cm. 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 Atherosclerotic changes of the vasculature. No abdominal aortic aneurysm. Lymph nodes: Unremarkable. No enlarged lymph nodes. IMPRESSION: 1. Cystic lesions in the pancreas which could be further evaluated with MRI if clinically indicated. 2. Atrophic [place] kidneys and slightly atrophic right lower quadrant transplant kidney. 3. Nonspecific hyperdense lesion in the right lower quadrant near the opening of the right inguinal canal with thin peripheral calcification, measuring approximately 8.9 x 8.1 x 7.8 cm. 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 4. Small to moderate umbilical hernia containing nonobstructed colon. Electronically signed by: Venus Lei M.D. 08/27/24 20:55 PM
--- NOTE | 2024-08-27 23:39 | Emergency Department Note ---
Impression & Plan Aneurysm Transfer ED Provider Note HPI: History obtained from patient. The patient is a 59-year-old gentleman with history of kidney transplant in 1979 at [facility], presents the emergency department today with a chief complaint of an aneurysm near his transplanted kidney that was noted on outpatient ultrasound. Patient was evaluated by Dr. Noyola of nephrology and some arrangements have already been made for him to be transferred to [facility] however the patient was advised to come to the emergency department for CT imaging and to arrange transfer. On arrival here to the ED the patient is in no acute distress, he is hypertensive on arrival, he denies any focal complaint of pain. ROS: - Per HPI Differential Diagnosis: Aneurysm of transplanted kidney anastomotic site, hypertensive emergency, amongst other potential pathologies. *Outpatient medications and allergy history reviewed. PE: General: Alert, no acute distress HEENT: Normocephalic, trachea midline Eyes: Extraocular eye movement is intact, no scleral erythema Pulmonary: Clear to auscultation bilaterally, no wheezing Cardio: Regular rate and rhythm GI: Abdomen is soft to palpation : No suprapubic tenderness MSK: No evidence of trauma or malformation of the extremities, no edema Skin: No evidence of rash Neuro: Alert, no focal deficits Psychiatric: Cooperative INDEPENDENT INTERPRETATIONS: compliance monitor: (As interpreted by myself): - An order was placed for continuous cardiac monitoring - Patient was noted to be in sinus rhythm with a rate of 85 Interventions provided in ED: -IV labetalol Medical Decision Making: IV was established and lab work obtained, patient was placed on cardiac sonographer. Lab work shows no leukocytosis, hemoglobin is stable at 12.3, platelet count is normal, CMP shows baseline creatinine at 3.43. Otherwise no critical findings are noted. CT imaging of the abdomen pelvis was obtained without contrast, this does show concern for an aneurysm near the anastomotic site of the transplant kidney measuring approximately 9 cm in maximum diameter. I was able to get in touch with Dr. Gallegos of [facility] transplant surgery, he was aware of the patient's and the patient was accepted for transfer. Per the transfer center there is not a bed available currently and there likely will be one available in the morning. Patient was in agreement for transfer and signed consent for transfer. He was given IV labetalol here in the ED for his hypertension with good improvement. Patient remained stable overnight while awaiting transfer. We are awaiting word from the [facility] in regards to bed availability this morning for the patient to have transportation arranged. Patient was therefore signed out to my colleague, Dr. Alicea, in stable condition pending transfer/transportation arrangements. Consultants/Discussions held with other healthcare providers: -Dr. Gallegos, [facility] transplant surgery Disposition discussion held by myself with: -Patient Diagnosis: 1. 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 Hypertension, acute Disposition: Transfer Pipo Fink DO Emergency Medicine Past Med/Surg History Problem List (Updated 08/28/24 @ 03:59 by Pipo Fink DO) Aneurysm (Acute) Left ankle instability Degenerative joint disease of left hip Non-ST elevation [place] (NSTEMI) Coronary artery disease Bradycardia Acute kidney injury superimposed on chronic kidney disease Multifocal pneumonia Anemia (Acute) Preoperative cardiovascular examination 1st degree AV block Incomplete RBBB Abnormal EKG Shortness of breath CKD (chronic kidney disease) (Acute) Elevated troponin (Acute) Chest discomfort (Acute) [place] (dyspnea on exertion) (Acute) 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 Lynn Chronic renal insufficiency (Chronic) Degenerative joint disease of right hip (Chronic) Medical History Type 2 [place] (myocardial infarction) ACS (acute coronary syndrome) Acidosis Pneumonia Blood clotting disorder Chronic steroid use Gout Osteoarthritis History of renal dialysis History of GI bleed GERD (gastroesophageal reflux disease) History of DVT (deep vein thrombosis) Gout Left knee DJD (10/10/13) Thrombosis venous deep Surgical History History of biopsy History of anesthesia reaction History of vascular surgery History of excision of pilonidal cyst History of right hip replacement History of left knee replacement Status post creation of arteriovenous fistula Status post removal of arteriovenous fistula History of endoscopy History of colonoscopy Family History Brother Diabetes Mother Diabetes Other Coronary heart disease Heart disease Hypertension No family history of adverse response to anesthesia Social History Smoking Status: Never smoker Second Hand Exposure: No; Do You Dip or Chew Tobacco: No; Hx Alcohol Use: No Hx Substance Use: No Preferred Language: Sami Communication Ability: Effective Visual Impairment: No Limitations Hearing Ability: Normal Day Habilitation Specialist Required: No Beliefs That Will Affect Care: None Current Living Situation: Spouse Current Living Situation Comment: home with current occupational status: employed Feels Safe at Home: Yes Assistive Devices: None Allergies Allergies Allergy/AdvReac Type Severity Reaction Status Date / Time NSAIDS (Non-Steroidal AdvReac Unknown GI bleeds Verified 08/01/24 09:00 Anti-Inflamma Home Meds Home Medications Medication Instructions Recorded Confirmed folic acid 800 mcg tablet 800 mcg PO DAILY 10/25/19 08/08/24 cyanocobalamin (vitamin B-12) 1,000 mcg PO DAILY 11/22/23 08/08/24 1,000 mcg tablet warfarin 5 mg tablet 5 mg PO DAILY 05/07/24 08/08/24 Previous Rx's Medication Instructions Recorded clopidogrel 75 mg tablet 75 mg PO QAM #90 tabs 10/06/23 calcitriol 0.5 mcg capsule 0.5 mcg PO HS #90 caps 11/22/23 lisinopril 20 mg tablet 20 mg PO QAM #90 tabs 01/22/24 azathioprine 50 mg tablet 150 mg (3 x 50 mg) PO QAM #270 tabs 02/26/24 gemfibrozil 600 mg tablet 600 mg PO HS #90 tabs 02/26/24 prednisone 10 mg tablet 10 mg PO QAM #90 tabs 04/15/24 metoprolol succinate 100 mg 100 mg PO DAILY #90 tabs 04/18/24 tablet,extended release 24 hr clindamycin 1 %-benzoyl peroxide 5 1 applic topical BID PRN acne #45 05/08/24 % topical gel grams hydrocortisone 2.5 % topical cream 1 applic topical BID PRN skin 05/08/24 irritation #30 grams epoetin atul 20,000 unit/mL 20,000 unit IV .COMPLEX 15 days 06/19/24 injection solution (Procrit) rosuvastatin 5 mg tablet 5 mg PO DAILY #90 tabs 06/19/24 Results & Data (ED) Vital Signs Vital Signs - 24 hr 08/27/24 19:55 08/27/24 22:20 08/27/24 22:53 Temperature 36.5 C 36.7 C Temperature Source Temporal Artery Scan Oral Pulse Rate 105 H Pulse Rate [Finger] 94 H Pulse Rate [Left Apical] 95 H Pulse Rate from SpO2 Sensor Respiratory Rate 18 16 18 Respiratory Effort / Characteristics Non-Labored Spontaneous Non-Labored Spontaneous Respiratory Depth Normal Normal Respiratory Pattern Regular Regular Blood Pressure 211/120 H Blood Pressure [Left Arm] 192/102 H Blood Pressure [Right Arm] 201/131 H Blood Pressure Mean 150 Blood Pressure Mean [Left Arm] 132 Blood Pressure Mean [Right Arm] 154 Pulse Oximetry 99 94 98 Oxygen Delivery Method Room Air Room Air Room Air Sepsis Recent Fever Within 48 Hours No Sepsis New/Unexplained Change in Mental Status No Sepsis Action Taken by Nursing No Action Required 08/27/24 22:56 08/27/24 23:00 08/27/24 23:37 Temperature Temperature Source Pulse Rate 97 H 90 97 H Pulse Rate [Finger] Pulse Rate [Left Apical] Pulse Rate from SpO2 Sensor 91 H 98 H Respiratory Rate 12 22 Respiratory Effort / Characteristics Respiratory Depth Respiratory Pattern Blood Pressure 201/131 H 196/122 H Blood Pressure [Left Arm] Blood Pressure [Right Arm] Blood Pressure Mean 154 148 Blood Pressure Mean [Left Arm] Blood Pressure Mean [Right Arm] Pulse Oximetry 97 99 Oxygen Delivery Method Sepsis Recent Fever Within 48 Hours Sepsis New/Unexplained Change in Mental Status Sepsis Action Taken by Nursing 08/28/24 00:48 08/28/24 01:51 08/28/24 02:30 Temperature Temperature Source Pulse Rate 88 85 85 Pulse Rate [Finger] Pulse Rate [Left Apical] Pulse Rate from SpO2 Sensor 85 86 Respiratory Rate 17 18 20 Respiratory Effort / Characteristics Respiratory Depth Respiratory Pattern Blood Pressure 189/118 H 149/124 H Blood Pressure [Left Arm] Blood Pressure [Right Arm] Blood Pressure Mean 141 132 Blood Pressure Mean [Left Arm] Blood Pressure Mean [Right Arm] Pulse Oximetry 97 97 97 Oxygen Delivery Method Sepsis Recent Fever Within 48 Hours Sepsis New/Unexplained Change in Mental Status Sepsis Action Taken by Nursing 08/28/24 02:42 08/28/24 03:09 08/28/24 03:30 Temperature Temperature Source Pulse Rate 81 80 78 Pulse Rate [Finger] Pulse Rate [Left Apical] Pulse Rate from SpO2 Sensor 79 Respiratory Rate 21 12 Respiratory Effort / Characteristics Respiratory Depth Respiratory Pattern Blood Pressure 164/97 H 153/85 H Blood Pressure [Left Arm] Blood Pressure [Right Arm] Blood Pressure Mean 119 107 Blood Pressure Mean [Left Arm] Blood Pressure Mean [Right Arm] Pulse Oximetry 96 Oxygen Delivery Method Sepsis Recent Fever Within 48 Hours Sepsis New/Unexplained Change in Mental Status Sepsis Action Taken by Nursing 08/28/24 04:00 08/28/24 04:30 08/28/24 05:00 Temperature Temperature Source Pulse Rate 82 75 78 Pulse Rate [Finger] Pulse Rate [Left Apical] Pulse Rate from SpO2 Sensor 81 76 71 Respiratory Rate 15 19 15 Respiratory Effort / Characteristics Respiratory Depth Respiratory Pattern Blood Pressure 149/95 H 140/80 140/93 Blood Pressure [Left Arm] Blood Pressure [Right Arm] Blood Pressure Mean 113 91 108 Blood Pressure Mean [Left Arm] Blood Pressure Mean [Right Arm] Pulse Oximetry 97 97 98 Oxygen Delivery Method Sepsis Recent Fever Within 48 Hours Sepsis New/Unexplained Change in Mental Status Sepsis Action Taken by Nursing Laboratory Data 08/27/24 20:15 08/27/24 20:15 Lab Results 08/27/24 08/28/24 Range/Units 20:15 03:39 WBC 9.58 (4.8-10.8) K/ul RBC 3.73 L (4.70-6.10) M/uL Hgb 12.3 L (14.0-18.0) g/dl Hct 38.3 L (42.0-52.0) % MCV 102.7 H (80.0-100.0) fL MCH 33.0 (25.0-34.0) pg MCHC 32.1 (32.0-36.0) g/dL RDW Std Deviation 63.8 H (36.4-46.3) fL RDW Coeff of Zeus 17.0 H (11.5-14.5) % Plt Count 300 (130-400) K/uL MPV 9.3 L (9.4-12.4) fL Immature Gran % (Auto) 1.0 % Neut % (Auto) 86.0 % Lymph % (Auto) 7.2 % [place] % (Auto) 5.5 % Eos % (Auto) 0.1 % Baso % (Auto) 0.2 % Neut # (Auto) 8.23 H (1.40-6.50) K/uL Lymph # (Auto) 0.69 L (1.20-3.40) K/uL Cameron # (Auto) 0.53 (0.11-0.59) K/uL Eos # (Auto) 0.01 (0.00-0.50) K/uL Baso # (Auto) 0.02 (0.00-0.20) K/uL Immature Gran # (Auto) 0.10 (0.01-0.20) K/uL Sodium 141 (136-145) mmol/L Potassium 4.5 (3.5-5.1) mmol/L Chloride 102 (98-107) mmol/L Carbon Dioxide 30 (21-32) mmol/L Anion Gap 9 (3-11) BUN 61 H (6-23) mg/dl Creatinine 3.43 H (0.6-1.4) mg/dl Est Cr Clr Drug Dosing 20.2 ml/min eGFR 19.75 BUN/Creatinine Ratio 17.8 (10-20) Glucose 96 (70-99(Fasting)) mg/dl Calcium 9.8 (8.6-10.3) mg/dl Total Bilirubin 0.6 (0.2-1.0) mg/dl AST 18 (13-39) U/L ALT 9 (7-52) U/L Alkaline Phosphatase 76 (34-104) U/L Total Protein 7.7 (6.0-8.3) gm/dl Albumin 4.2 (3.4-5.0) gm/dl Globulin 3.5 (2.5-4.0) gm/dl Albumin/Globulin Ratio 1.2 (0.9-2) Lipase 128 H (11-82) U/L Urine Color Yellow Urine Appearance Clear (Clear) Urine pH 6.5 (4.5-7.5) Ur Specific [place] 1.014 (1.000-1.030) Urine Protein 3+ H (Negative) Urine Glucose (UA) Negative (Negative) Urine Ketones Negative (Negative) Urine Blood Trace H (Negative) Urine Nitrite Negative (Negative) Urine Bilirubin Negative (Negative) Urine Urobilinogen Negative (Negative) Ur Leukocyte Esterase Negative (Negative) Urine WBC (Auto) 0-5 (0-5) /hpf Urine RBC (Auto) 3-5 H (0-2) /hpf U Hyaline Cast (Auto) 0-2 (0-2) /lpf U Epithel Cells (Auto) 0-2 (0-2) /hpf Urine Bacteria (Auto) None Seen (None Seen) Administered Medications Discontinued Medications Labetalol HCl (Labetalol Hcl Iv 5 Mg/Ml 20ml) 10 mg IV NOW STA Stop: 08/27/24 23:42 Last Admin: 08/27/24 23:54 Dose: 10 mg Documented By: TANYA Labetalol HCl (Labetalol Hcl Iv 5 Mg/Ml 20ml) 10 mg IV NOW STA Stop: 08/28/24 03:21 Last Admin: 08/28/24 03:36 Dose: 10 mg Documented By: TANYA Imaging Data Radiologist's Impression: Abdomen/Pelvis CT 08/27/24 20:00 Exam(s): CT ABDOMEN + PELVIS Without Contrast EXAM: CT Abdomen and Pelvis Without Intravenous Contrast CLINICAL HISTORY: Reason for exam: 9cm aneursym anastomatic artery. TECHNIQUE: Axial computed tomography images of the abdomen and pelvis without intravenous contrast. CTDI is 23.24 mGy and DLP is 943.89 mGy-cm. Automated exposure control was utilized for the study. A dose lowering technique was utilized adhering to the principles of ALARA. COMPARISON: None FINDINGS: Lung bases: Unremarkable. No mass. No consolidation. Heart: Cardiomegaly. ABDOMEN: Liver: Unremarkable. Gallbladder and bile ducts: Unremarkable. No calcified stones. No ductal dilation. Pancreas: Cystic lesions in the pancreas which could be further evaluated with MRI if clinically indicated. No ductal dilation. Spleen: Unremarkable. No splenomegaly. Adrenals: Unremarkable. No mass. Kidneys and ureters: Atrophy of the [place] kidneys. Bilateral renal cysts. No further follow-up necessary. No hydronephrosis or stone. Right lower quadrant transplant kidney which is atrophic. Probable small cyst which could be further evaluated with ultrasound if clinically indicated. Stomach and bowel: Small to moderate umbilical hernia containing nonobstructed colon. Diverticulosis without evidence of diverticulitis. No small bowel obstruction. PELVIS: Appendix: Normal appendix. Bladder: Unremarkable. No stones. Reproductive: Unremarkable as visualized. ABDOMEN and PELVIS: Intraperitoneal space: Unremarkable. No free air. No significant fluid collection. Bones/joints: Right hip arthroplasty causes streak artifact and limits evaluation of portions of the pelvis. Degenerative changes of the spine. Grade 1 anterolisthesis of L4 on L5 and L5 on S1. No acute fracture. No dislocation. Soft tissues: Small fat-containing left inguinal hernia. Postsurgical changes in the right inguinal region. Vasculature: Nonspecific hyperdense lesion in the right lower quadrant near the opening of the right inguinal canal with thin peripheral calcification, measuring approximately 8.9 x 8.1 x 7.8 cm. 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 Atherosclerotic changes of the vasculature. No abdominal aortic aneurysm. Lymph nodes: Unremarkable. No enlarged lymph nodes. IMPRESSION: 1. Cystic lesions in the pancreas which could be further evaluated with MRI if clinically indicated. 2. Atrophic [place] kidneys and slightly atrophic right lower quadrant transplant kidney. 3. Nonspecific hyperdense lesion in the right lower quadrant near the opening of the right inguinal canal with thin peripheral calcification, measuring approximately 8.9 x 8.1 x 7.8 cm. 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 4. Small to moderate umbilical hernia containing nonobstructed colon. Electronically signed by: Venus Lei M.D. 08/27/24 20:55 PM Discharge Plan Visit Data Chief Complaint: Referred by Doctor Stated Complaint: REFERRED BY LEANN MILLER IN KIDNEY ED Provider: Pipo Fink Discharge Problem: Aneurysm Forms Stand Alone Forms: My [facility] Prescriptions Prescriptions: No Action warfarin 5 mg tablet 5 mg PO DAILY clopidogrel 75 mg tablet 75 mg PO QAM Qty: 90 3RF azathioprine 50 mg tablet 150 mg PO QAM Qty: 270 3RF gemfibrozil 600 mg tablet 600 mg PO HS Qty: 90 2RF Hold Instructions: Home Medication placed on hold at Doctor's office prednisone 10 mg tablet 10 mg PO QAM Qty: 90 3RF rosuvastatin 5 mg tablet 5 mg PO DAILY Qty: 90 3RF cyanocobalamin (vitamin B-12) 1,000 mcg tablet 1,000 mcg PO DAILY folic acid 800 mcg tablet 800 mcg PO DAILY lisinopril 20 mg tablet 20 mg PO QAM Qty: 90 3RF Hold Instructions: Home Medication placed on hold at Doctor's office hydrocortisone 2.5 % cream 1 applic topical BID PRN (Reason: skin irritation) Qty: 30 1RF clindamycin-benzoyl peroxide 1-5 % gel 1 applic TOP BID PRN (Reason: acne) Qty: 45 3RF Procrit 20,000 unit/mL solution 20,000 unit IV .COMPLEX 15 Days Rx Instructions: 20,000 units intravenously every other week; hold for Hgb >11 calcitriol 0.5 mcg capsule 0.5 mcg PO HS Qty: 90 3RF Hold Instructions: Home Medication placed on hold at Doctor's office metoprolol succinate 100 mg tablet extended release 24 hr 100 mg PO DAILY Qty: 90 3RF Referrals Referrals: Jorge Luis Noyola DO [Primary Care Provider] -
[2024-08-27] MEDS: LABETALOL HCL IV 5 MG/ML 20ML IV STA (23:54)
[2024-08-28] MEDS: LABETALOL HCL IV 5 MG/ML 20ML IV STA (03:36)
[2024-08-28 03:52] LABS: Appearance Urine Clear (Clear); Bacteria Urine Automated None Seen (None Seen); Bilirubin Urine Negative (Negative); Blood Urine Trace (Negative); Cast Urine Automated 0-2 /lpf (0-2); Color Urine Yellow; Epithelial Cell Urine Auto 0-2 /hpf (0-2); Glucose Urine UA Negative (Negative); Ketones Urine Negative (Negative); Leukocyte Esterase Urine Negative (Negative); Nitrite Urine Negative (Negative); Protein Urine 3+ (Negative); Specific Gravity Urine 1.014 (1.000-1.030); Urobilinogen Urine Negative (Negative); WBC Urine Automated 0-5 /hpf (0-5); pH Urine 6.5 (4.5-7.5)
[2024-08-28] MEDS ORDERED: lisinopril 20 MG TAB PO SCH (09:00)
[2024-08-28] MEDS: predniSONE 10 MG TABLET PO SCH (09:37)
[2024-08-28] MEDS: METOPROLOL SUCC 50MG EXT REL TAB PO SCH (09:37)
[2024-08-28] MEDS: azaTHIOprine 50 MG TAB PO SCH (09:37)
[2024-08-28] MEDS: CLOPIDOGREL BISULFATE 75 MG TAB PO ONE (09:37)
--- NOTE | 2024-08-28 09:53 | Emergency Department Note ---
ED Visit Note Patient signed out to me at change of shift from Dr. Fink. Patient awaiting bed and transportation to [facility]. 0945: [facility] received a phone call that no bed will be available today. They are optimistic that they will be able to have a bed to proceed with the transfer tomorrow. 1113: Discussed with Dr. Philip, [facility] hospitalist team. .
[2024-08-28] MEDS: FOLIC ACID 400 MCG TAB PO SCH (10:39)
[2024-08-28] MEDS: CYANOCOBALAMIN (B-12) 500 MCG TABLET PO SCH (10:39)
--- NOTE | 2024-08-28 11:25 | History & Physical Report ---
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 Patient is asymptomatic at this time. Nephrology discussed with Dr. Gallegos at [facility] kidney transplant and he is accepted for transfer to the hospital for evaluation and intervention. Given there is no bed availability for at least 24 hours and on discussion with the clinical coordinator we will admit him and [facility] bed availability at [facility]. No respiratory, gastrointestinal or urinary symptoms. Most recent medication change was stopping his lisinopril due to rising creatinine and switching from atorvastatin to rosuvastatin for leg cramps on August 01. Allergies Allergy/AdvReac Type Severity Reaction Status Date / Time NSAIDS (Non-Steroidal AdvReac Unknown GI bleeds Verified 08/01/24 09:00 Anti-Inflamma Home Medications Medication Instructions Recorded Confirmed Type folic acid 800 mcg tablet 800 mcg PO DAILY 10/25/19 08/28/24 History clopidogrel 75 mg tablet 75 mg PO QAM #90 tabs 10/06/23 08/28/24 Rx cyanocobalamin (vitamin B-12) 1,000 mcg PO DAILY 11/22/23 08/28/24 History 1,000 mcg tablet azathioprine 50 mg tablet 150 mg (3 x 50 mg) PO QAM #270 tabs 02/26/24 08/28/24 Rx gemfibrozil 600 mg tablet 600 mg PO HS #90 tabs 02/26/24 08/28/24 Rx prednisone 10 mg tablet 10 mg PO QAM #90 tabs 04/15/24 08/28/24 Rx metoprolol succinate 100 mg 100 mg PO DAILY #90 tabs 04/18/24 08/28/24 Rx tablet,extended release 24 hr warfarin 5 mg tablet 5 mg PO DAILY 05/07/24 08/28/24 History clindamycin 1 %-benzoyl peroxide 5 1 applic topical BID PRN acne #45 05/08/24 08/28/24 Rx % topical gel grams hydrocortisone 2.5 % topical cream 1 applic topical BID PRN skin 05/08/24 08/28/24 Rx irritation #30 grams epoetin atul 20,000 unit/mL 20,000 unit IV .COMPLEX 15 days 06/19/24 08/28/24 Rx injection solution (Procrit) rosuvastatin 5 mg tablet 5 mg PO DAILY #90 tabs 06/19/24 08/28/24 Rx Past Med/Surg History Problem List (Updated 08/28/24 @ 20:42 by Jorge Luis Noyola DO) Aneurysm artery, renal Aneurysm (Acute) Left ankle instability Degenerative joint disease of left hip Non-ST elevation AL (NSTEMI) Coronary artery disease Bradycardia Acute kidney injury superimposed on chronic kidney disease Multifocal pneumonia Anemia (Acute) Preoperative cardiovascular examination 1st degree AV block Incomplete RBBB Abnormal EKG Shortness of breath CKD (chronic kidney disease) (Acute) Elevated troponin (Acute) Chest discomfort (Acute) KNOX (dyspnea on exertion) (Acute) 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 Lynn Chronic renal insufficiency (Chronic) Degenerative joint disease of right hip (Chronic) Medical History Type 2 AL (myocardial infarction) ACS (acute coronary syndrome) Acidosis Pneumonia Blood clotting disorder Chronic steroid use Gout Osteoarthritis History of renal dialysis History of GI bleed GERD (gastroesophageal reflux disease) History of DVT (deep vein thrombosis) Gout Left knee DJD (10/10/13) Thrombosis venous deep Surgical History History of biopsy History of anesthesia reaction History of vascular surgery History of excision of pilonidal cyst History of right hip replacement History of left knee replacement Status post creation of arteriovenous fistula Status post removal of arteriovenous fistula History of endoscopy History of colonoscopy Family History Brother Diabetes Mother Diabetes Other Coronary heart disease Heart disease Hypertension No family history of adverse response to anesthesia Social History Smoking Status: Never smoker Second Hand Exposure: No; Do You Dip or Chew Tobacco: No; Hx Alcohol Use: No Hx Substance Use: No Preferred Language: Icelandic Communication Ability: Effective Visual Impairment: No Limitations Hearing Ability: Normal Assistant Drafter Required: No Beliefs That Will Affect Care: None Current Living Situation: Spouse Current Living Situation Comment: home with current occupational status: employed Feels Safe at Home: Yes Assistive Devices: Glasses Review of Systems Review of Systems: All systems reviewed & are unremarkable except as noted in HPI & below Physical Exam Constitutional: WD/WN, vitals as above Respiratory: normal respiratory effort, lungs clear to auscultation Cardiovascular: RRR, no murmur, no edema Gastrointestinal (Abdomen): normal bowel sounds, soft, nontender, no hepatosplenomegaly Skin: no rashes, warm and dry Genitourinary: no CVA tenderness Results & Data Results & Data Vital Signs (Past 12 Hours) Vital Signs Pulse Resp BP Pulse Ox 08/28/24 11:01 79 08/28/24 09:00 83 16 155/98 H 96 08/28/24 07:00 78 19 147/91 H 97 08/28/24 06:26 74 08/28/24 06:00 81 15 139/93 96 08/28/24 05:30 74 16 142/88 H 95 08/28/24 05:00 140/93 08/28/24 05:00 78 15 140/93 98 08/28/24 04:30 75 19 140/80 97 08/28/24 04:00 82 15 149/95 H 97 08/28/24 03:30 78 12 153/85 H 08/28/24 03:09 80 21 164/97 H 96 08/28/24 02:42 81 08/28/24 02:30 85 20 149/124 H 97 08/28/24 01:51 85 18 189/118 H 97 08/28/24 00:48 88 17 97 08/27/24 23:37 97 H 22 196/122 H 99 Laboratory Results Abnormal lab results 08/27/24 08/28/24 Range/Units 20:15 03:39 RBC 3.73 L (4.70-6.10) M/uL Hgb 12.3 L (14.0-18.0) g/dl Hct 38.3 L (42.0-52.0) % MCV 102.7 H (80.0-100.0) fL RDW Std Deviation 63.8 H (36.4-46.3) fL RDW Coeff of Zeus 17.0 H (11.5-14.5) % MPV 9.3 L (9.4-12.4) fL Neut # (Auto) 8.23 H (1.40-6.50) K/uL Lymph # (Auto) 0.69 L (1.20-3.40) K/uL BUN 61 H (6-23) mg/dl Creatinine 3.43 H (0.6-1.4) mg/dl Lipase 128 H (11-82) U/L Urine Protein 3+ H (Negative) Urine Blood Trace H (Negative) Urine RBC (Auto) 3-5 H (0-2) /hpf Diagnostic Findings US renal transplant w dop CLINICAL HISTORY: N17.9 - Acute kidney failure, unspecified COMPARISON STUDY: 08/12/2012 FINDINGS: The transplant kidney measures 12 x 6 cm. There is no hydronephrosis. No renal calculi seen. There are a few small renal cysts measuring up to 3 cm. A large portion of the kidney is hypoechoic, measuring up to 8 cm. There is some mild vascular flow within this area. There are no increased arterial velocities to suggest renal artery stenosis. Renal artery to aorta ratio is 0.7, normal. There is normal direction of flow in the patent renal vein. Inferior to the transplant kidney in the right lower pelvis there is a 9 cm round mixed echogenicity finding with vascular flow, has morphology suggesting large aneurysm or pseudoaneurysm. The [place] kidneys are atrophic bilaterally with multiple cysts measuring up to 4 cm on the left. There is no hydronephrosis. IMPRESSION: 1. No evidence of arterial stenosis seen at the transplant kidney. 2. Nonspecific large area of hypoechogenicity at the transplant kidney. Differential diagnosis includes region of renal infarction and mass. 3. 9 cm likely aneurysm or pseudoaneurysm in the right pelvis below the renal transplant kidney. CT ABDOMEN + PELVIS Without Contrast EXAM: CT Abdomen and Pelvis Without Intravenous Contrast CLINICAL HISTORY: Reason for exam: 9cm aneursym anastomatic artery. TECHNIQUE: Axial computed tomography images of the abdomen and pelvis without intravenous contrast. CTDI is 23.24 mGy and DLP is 943.89 mGy-cm. Automated exposure control was utilized for the study. A dose lowering technique was utilized adhering to the principles of ALARA. COMPARISON: None FINDINGS: Lung bases: Unremarkable. No mass. No consolidation. Heart: Cardiomegaly. ABDOMEN: Liver: Unremarkable. Gallbladder and bile ducts: Unremarkable. No calcified stones. No ductal dilation. Pancreas: Cystic lesions in the pancreas which could be further evaluated with MRI if clinically indicated. No ductal dilation. Spleen: Unremarkable. No splenomegaly. Adrenals: Unremarkable. No mass. Kidneys and ureters: Atrophy of the [place] kidneys. Bilateral renal cysts. No further follow-up necessary. No hydronephrosis or stone. Right lower quadrant transplant kidney which is atrophic. Probable small cyst which could be further evaluated with ultrasound if clinically indicated. Stomach and bowel: Small to moderate umbilical hernia containing nonobstructed colon. Diverticulosis without evidence of diverticulitis. No small bowel obstruction. PELVIS: Appendix: Normal appendix. Bladder: Unremarkable. No stones. Reproductive: Unremarkable as visualized. ABDOMEN and PELVIS: Intraperitoneal space: Unremarkable. No free air. No significant fluid collection. Bones/joints: Right hip arthroplasty causes streak artifact and limits evaluation of portions of the pelvis. Degenerative changes of the spine. Grade 1 anterolisthesis of L4 on L5 and L5 on S1. No acute fracture. No dislocation. Soft tissues: Small fat-containing left inguinal hernia. Postsurgical changes in the right inguinal region. Vasculature: Nonspecific hyperdense lesion in the right lower quadrant near the opening of the right inguinal canal with thin peripheral calcification, measuring approximately 8.9 x 8.1 x 7.8 cm. 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 Atherosclerotic changes of the vasculature. No abdominal aortic aneurysm. Lymph nodes: Unremarkable. No enlarged lymph nodes. IMPRESSION: 1. Cystic lesions in the pancreas which could be further evaluated with MRI if clinically indicated. 2. Atrophic [place] kidneys and slightly atrophic right lower quadrant transplant kidney. 3. Nonspecific hyperdense lesion in the right lower quadrant near the opening of the right inguinal canal with thin peripheral calcification, measuring approximately 8.9 x 8.1 x 7.8 cm. 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 4. Small to moderate umbilical hernia containing nonobstructed colon. Medications Administered ER medications given: Labetalol 10 mg IV Labetalol 10 mg IV Code Status & VTE Plan Code Status Full VTE Prophylaxis Plan VTE Prophylaxis will be ordered: Yes PG Care Time/CCT Total # of Minutes Spent Total Time Spent with Patient: Total time spent is greater than 50% in coordination of care (as documented) at patient's floor/unit and/or counseling patient: Coding Level of Care Code 82010 INT INP/OBS CARE 3/75MIN Diagnoses Aneurysm I72.9 Kidney replaced by transplant Z94.0 Blood clotting disorder D68.9
[2024-08-28 12:36] LABS: Calcium 8.2 mg/dl (8.6-10.3); Creatinine Clr Calc Pharmacy 22.6 ml/min
[2024-08-28 12:46] LABS: INR 2.5 (0.9-1.1); Prothrombin Time 24.9 Seconds (9.0-12.0)
[2024-08-28] MEDS: WARFARIN SOD 5 MG TAB PO ONE (13:44)
[2024-08-28] MEDS: WARFARIN SOD 5 MG TAB PO SCH (17:23)
[2024-08-28] MEDS ORDERED: hydrALAZINE HCL 20 MG/ML VIAL IV PRN (17:46)
[2024-08-28] MEDS: gemfibroziL 600 MG TAB PO SCH (19:45)
[2024-08-28] MEDS: ROSUVASTATIN CALCIUM 5 MG TAB PO SCH (19:45)
--- NOTE | 2024-08-28 20:09 | Nephrology Consultation ---
Date of Consultation August 28, 2024 Assessment & Plan (1) Aneurysm artery, renal: Imaging reviewed. 9 cm aneurysm or pseudoaneurysm of what appears to be the renal transplant artery noted. Vascular/transplant surgery evaluation at [facility] pending transfer. Notable history of reported bypass surgery performed for anastomotic stenosis shortly after transplant. No records or other imaging available. No other recent imaging to review. BP acceptable. If persistently elevated, consider starting amlodipine in addition to home Rx metoprolol succinate. (2) Kidney replaced by transplant: Allograft function has been declining. Notably following episode of KELSEA in August of 2023. Baseline creatinine ~3.0-3.4 mg/dL. donor kidney transplant performed at [facility] in 1979. Continue azathioprine and prednisone as Rx. (3) Anemia due to chronic kidney disease: Noted history of lower GI bleeding from hemorrhoids. Previously maintained on Epogen but not recently required with Hgb >11. History of Present Illness Reason for Consultation: 9cm likely aneurysm, non-specific area of hypoecho Requesting Physician: Emmett Philip MD Attending Physician: Emmett Philip MD History of Present Illness Mr. 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 He was on HD via a LUE AVF prior to receiving a donor kidney transplant at age 15. Transplant was performed at [facility] in 1979. Graft function was initially slow and there were complications with vascular insufficiency to the allograft requiring bypass grafting to the arterial anastomosis. His immunosuppression is azathioprine 150 mg daily and prednisone 10 mg daily. Bradley was admitted to [facility] in August 2023 with multifocal pneumonia and NSTEMI. He developed severe symptomatic bradycardia shortly after admission attributed to RCA IA. This was complicated by KELSEA attributed to ATN. Cardiac catheterization during the admission via a right femoral artery approach demonstrated severe stenosis with notable calcific vascular disease identified in the RCA and LAD. A staged procedure was planned. AGNES was placed to the RCA in late August. After starting Plavix in addition to Warfarin, Bradley developed some GI bleeding and acute anemia. This did require PRBC transfusion support. Creatinine improved to ~3.0 mg/dL following the admission. In October, shock wave lithotripsy with laser atherectomy of the lesion to the LAD was completed using a radial approach. Lisinopril was restarted but subsequently held due to rising serum creatinine. RAASi subsequently held pending imaging of the allograft. US completed on Monday was notable for 9 cm aneurysm/pseudoaneurysm of what appears to be the transplant renal artery. After discussion with local vascular surgery, the consensus was that it would be best to reach out to [facility] for transplant and vascular support. Vascular surgery at [facility] agreed to take Bradley as a hospital transfer. He has been admitted for observation pending appropriate arrangements. Bradley understands the risk of loss of his kidney. We discussed the need to potentially restart hemodialysis. From his home, he could potentially dialyze with me at [facility] in [place] or with Dr. Young at [facility] in [place]. His AVF was ligated >30 years ago due to aneurysmal dilation. He does not have vascular access. Medical history is notable for a history of DVT and MTHFR mutation for which hematology had recommended chronic anticoagulation. Bradley has remained on anticoagulation with warfarin with a recently requested second opinion from hematology to see if anticoagulation could be stopped. He has had intermittent bleeding rectal hemorrhoids. Evaluation by general surgery also identified a mucosal lesion. Surgery for internal, external hemorrhoids, and the mucosal lesion had been scheduled but delayed due to his cardiac events last year. He has anemia of CKD for which he is maintained on Procrit through my clinic. Baseline creatinine is ~3.0-3.3 mg/dL. He is maintain on rosuvastatin and remains on gemfibrozil for hyperlipidemia. Concerns with the use of gemfibrozil and his kidney dysfunction have been discussed and it was advised that he consider stopping the medication. Medical history is also notable for significant osteoarthritis. He has had a left total knee replacement done in 2013 and a right total hip replacement done in 2015. Following knee surgery in 2013, Bradley developed extensive DVT. Evaluation was notable for homozygous mutation in C677T MTHFR. Bradley was evaluated by in the hematology clinic at that time. Cardiolipin antibody also initially noted to be slightly elevated. Bradley is now chronically anticoagulated with Warfarin. Follow up hematology consultation has been requested regarding need for ongoing anticoagulation. Allergies Allergy/AdvReac Type Severity Reaction Status Date / Time NSAIDS (Non-Steroidal AdvReac Unknown GI bleeds Verified 08/01/24 09:00 Anti-Inflamma Home Medications Medication Instructions Recorded Confirmed Type folic acid 800 mcg tablet 800 mcg PO DAILY 10/25/19 08/28/24 History clopidogrel 75 mg tablet 75 mg PO QAM #90 tabs 10/06/23 08/28/24 Rx cyanocobalamin (vitamin B-12) 1,000 mcg PO DAILY 11/22/23 08/28/24 History 1,000 mcg tablet azathioprine 50 mg tablet 150 mg (3 x 50 mg) PO QAM #270 tabs 02/26/24 08/28/24 Rx gemfibrozil 600 mg tablet 600 mg PO HS #90 tabs 02/26/24 08/28/24 Rx prednisone 10 mg tablet 10 mg PO QAM #90 tabs 04/15/24 08/28/24 Rx metoprolol succinate 100 mg 100 mg PO DAILY #90 tabs 04/18/24 08/28/24 Rx tablet,extended release 24 hr warfarin 5 mg tablet 5 mg PO DAILY 05/07/24 08/28/24 History clindamycin 1 %-benzoyl peroxide 5 1 applic topical BID PRN acne #45 05/08/24 08/28/24 Rx % topical gel grams hydrocortisone 2.5 % topical cream 1 applic topical BID PRN skin 05/08/24 08/28/24 Rx irritation #30 grams epoetin atul 20,000 unit/mL 20,000 unit IV .COMPLEX 15 days 06/19/24 08/28/24 Rx injection solution (Procrit) rosuvastatin 5 mg tablet 5 mg PO DAILY #90 tabs 06/19/24 08/28/24 Rx Patient History Medical History Type 2 IA (myocardial infarction) ACS (acute coronary syndrome) Acidosis Pneumonia Blood clotting disorder Chronic steroid use Gout Osteoarthritis History of renal dialysis History of GI bleed GERD (gastroesophageal reflux disease) History of DVT (deep vein thrombosis) Gout Left knee DJD (10/10/13) Thrombosis venous deep Surgical History History of biopsy History of anesthesia reaction History of vascular surgery History of excision of pilonidal cyst History of right hip replacement History of left knee replacement Status post creation of arteriovenous fistula Status post removal of arteriovenous fistula History of endoscopy History of colonoscopy Family History Brother Diabetes Mother Diabetes Other Coronary heart disease Heart disease Hypertension No family history of adverse response to anesthesia Social History Smoking Status: Never smoker Second Hand Exposure: No; Do You Dip or Chew Tobacco: No; Hx Alcohol Use: No Hx Substance Use: No Preferred Language: Turkmen Communication Ability: Effective Visual Impairment: No Limitations Hearing Ability: Normal Weatherseal Technician Required: No Beliefs That Will Affect Care: None Current Living Situation: Spouse Current Living Situation Comment: home with current occupational status: employed Feels Safe at Home: Yes Assistive Devices: Glasses Review of Systems Review of Systems: All systems reviewed & are unremarkable except as noted in HPI & below Physical Exam Constitutional: well developed; no acute distress Eyes: + anicteric sclerae Neck: normal visual inspection and trachea midline Respiratory: normal respiratory effort Auscultation: lungs clear to auscultation bilaterally Cardiovascular: Rate/Rhythm: regular rate Heart Sounds: normal S1 and normal S2 Extremities: no edema Musculoskeletal: Extremities: no cyanosis and no clubbing Skin: normal turgor Neurologic: Motor/Sensory: no tremor and no asterixis Psychiatric: Orientation: alert and oriented x 3 Results & Data Vital Signs (Past 12 Hours) Vital Signs Temp Pulse Pulse Resp BP BP Pulse Ox 08/28/24 19:22 36.6 C 84 18 157/89 H 97 08/28/24 18:02 158/96 H 08/28/24 16:20 36.9 C 94 H 18 183/110 H 96 08/28/24 13:49 95 H 18 156/106 H 96 08/28/24 11:01 79 08/28/24 09:00 83 16 155/98 H 96 O2 Del Method 08/28/24 19:22 Room Air 08/28/24 18:02 08/28/24 16:20 Room Air 08/28/24 13:49 Room Air 08/28/24 11:01 08/28/24 09:[address] Abdomen and Pelvis Without Intravenous Contrast COMPARISON: None FINDINGS: Lung bases: Unremarkable. No mass. No consolidation. Heart: Cardiomegaly. ABDOMEN: Liver: Unremarkable. Gallbladder and bile ducts: Unremarkable. No calcified stones. No ductal dilation. Pancreas: Cystic lesions in the pancreas which could be further evaluated with MRI if clinically indicated. No ductal dilation. Spleen: Unremarkable. No splenomegaly. Adrenals: Unremarkable. No mass. Kidneys and ureters: Atrophy of the [place] kidneys. Bilateral renal cysts. No further follow-up necessary. No hydronephrosis or stone. Right lower quadrant transplant kidney which is atrophic. Probable small cyst which could be further evaluated with ultrasound if clinically indicated. Stomach and bowel: Small to moderate umbilical hernia containing nonobstructed colon. Diverticulosis without evidence of diverticulitis. No small bowel obstruction. PELVIS: Appendix: Normal appendix. Bladder: Unremarkable. No stones. Reproductive: Unremarkable as visualized. ABDOMEN and PELVIS: Intraperitoneal space: Unremarkable. No free air. No significant fluid collection. Bones/joints: Right hip arthroplasty causes streak artifact and limits evaluation of portions of the pelvis. Degenerative changes of the spine. Grade 1 anterolisthesis of L4 on L5 and L5 on S1. No acute fracture. No dislocation. Soft tissues: Small fat-containing left inguinal hernia. Postsurgical changes in the right inguinal region. Vasculature: Nonspecific hyperdense lesion in the right lower quadrant near the opening of the right inguinal canal with thin peripheral calcification, measuring approximately 8.9 x 8.1 x 7.8 cm. 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 Atherosclerotic changes of the vasculature. No abdominal aortic aneurysm. Lymph nodes: Unremarkable. No enlarged lymph nodes. IMPRESSION: 1. Cystic lesions in the pancreas which could be further evaluated with MRI if clinically indicated. 2. Atrophic [place] kidneys and slightly atrophic right lower quadrant transplant kidney. 3. Nonspecific hyperdense lesion in the right lower quadrant near the opening of the right inguinal canal with thin peripheral calcification, measuring approximately 8.9 x 8.1 x 7.8 cm. 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 4. Small to moderate umbilical hernia containing nonobstructed colon. US renal transplant w dop COMPARISON STUDY: 08/12/2012 FINDINGS: The transplant kidney measures 12 x 6 cm. There is no hydronephrosis. No renal calculi seen. There are a few small renal cysts measuring up to 3 cm. A large portion of the kidney is hypoechoic, measuring up to 8 cm. There is some mild vascular flow within this area. There are no increased arterial velocities to suggest renal artery stenosis. Renal artery to aorta ratio is 0.7, normal. There is normal direction of flow in the patent renal vein. Inferior to the transplant kidney in the right lower pelvis there is a 9 cm round mixed echogenicity finding with vascular flow, has morphology suggesting large aneurysm or pseudoaneurysm. The [place] kidneys are atrophic bilaterally with multiple cysts measuring up to 4 cm on the left. There is no hydronephrosis. IMPRESSION: 1. No evidence of arterial stenosis seen at the transplant kidney. 2. Nonspecific large area of hypoechogenicity at the transplant kidney. Differential diagnosis includes region of renal infarction and mass. 3. 9 cm likely aneurysm or pseudoaneurysm in the right pelvis below the renal transplant kidney. PG Care Time/CCT Total # of Minutes Spent Total Time Spent with Patient: Total time spent is greater than 50% in coordination of care (as documented) at patient's floor/unit and/or counseling patient: Coding Level of Care Code 80042 IN/OBS CONSULT LVL 4,60M Diagnoses Aneurysm artery, renal I72.2 Kidney replaced by transplant Z94.0 Anemia due to chronic kidney disease N18.9; D63.1
[2024-08-29 06:29] VITALS: O2SAT 98
[2024-08-29] MEDS: CLOPIDOGREL BISULFATE 75 MG TAB PO SCH (07:47)
[2024-08-29 10:05] LABS: BUN Creatinine Ratio 19.2 (10-20); Calcium 8.9 mg/dl (8.6-10.3); Creatinine Clr Calc Pharmacy 21.8 ml/min; Potassium 4.4 mmol/L (3.5-5.1)
[2024-08-29 10:06] LABS: INR 3.2 (0.9-1.1); Prothrombin Time 30.9 Seconds (9.0-12.0)
--- NOTE | 2024-08-29 11:23 | Nephrology Progress Note ---
Date of Service August 29, 2024 Assessment & Plan (1) Aneurysm artery, renal: Plan: Transfer to [facility] for vascular/transplant surgery evaluation pending. Notable history of reported bypass surgery performed for anastomotic stenosis shortly after transplant. Non-contrast CT and renal duplex completed. No other recent imaging to review. BP acceptable. If persistently elevated, consider starting amlodipine in addition to home Rx metoprolol succinate. (2) Kidney replaced by transplant: Plan: Allograft function has been declining. Notably following episode of KELSEA in August of 2023. Baseline creatinine ~3.0-3.4 mg/dL. donor kidney transplant performed at [facility] in 1979. Continue azathioprine and prednisone as Rx. Risks of progression to ESKD were discussed. We discussed potential need to start IHD. No current vascular access. Bradley would dialyze at [facility] under the care of Dr. Sue Young or [facility] under my care. Transition ot home therapy would be a future option. (3) Anemia due to chronic kidney disease: (4) Blood clotting disorder: Plan: History of DVT and MTHFR gene mutation. Bradley has been anticoagulated with Warfarin per hematology recs. It would be very reasonable to hold anticoagulation at this time. Need to chronic anticoagulation is questionable. Admission and Anticipated Discharge Date Admission Date: August 28, 2024 Subjective No acute events overnight. Bradley is resting comfortably in his hospital bed this AM. BP acceptable. I discussed the plan of care with Dr. Jacob this AM. Review of Systems Review of Systems: All systems reviewed & are unremarkable except as noted in HPI & below Physical Exam Constitutional: well developed; no acute distress Eyes: + anicteric sclerae Neck: normal visual inspection and trachea midline Respiratory: normal respiratory effort Auscultation: lungs clear to auscultation bilaterally Cardiovascular: Rate/Rhythm: regular rate Heart Sounds: normal S1 and normal S2 Extremities: no edema Musculoskeletal: Extremities: no cyanosis and no clubbing Skin: normal turgor Neurologic: Motor/Sensory: no tremor and no asterixis Psychiatric: Orientation: alert and oriented x 3 Results & Data Vital Signs (Past 12 Hours) Vital Signs Temp Pulse Resp BP Pulse Ox O2 Del Method 08/29/24 06:28 36.5 C 78 18 155/83 H 98 Room Air Laboratory Results Laboratory Results - last 24 hr 08/28/24 08/29/24 11:51 09:09 PT 24.9 H 30.9 H INR 2.5 H 3.2 H Sodium 139 139 Potassium 4.0 4.4 Chloride 105 104 Carbon Dioxide 25 26 Anion Gap 9 9 BUN 58 H 61 H Creatinine 3.06 H D 3.18 H Est Cr Clr Drug Dosing 22.6 21.8 eGFR 22.65 21.63 BUN/Creatinine Ratio 19.0 19.2 Glucose 96 122 H Calcium 8.2 L 8.9 PG Care Time/CCT Total # of Minutes Spent Total Time Spent with Patient: Total time spent is greater than 50% in coordination of care (as documented) at patient's floor/unit and/or counseling patient: Coding Level of Care Code 36745 SUB INP/OBS CARE 350MIN Diagnoses Aneurysm artery, renal I72.2 Kidney replaced by transplant Z94.0 Anemia due to chronic kidney disease N18.9; D63.1 Blood clotting disorder D68.9
--- NOTE | 2024-08-29 18:53 | Hospitalist Progress Note ---
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 Gallegos Unfortunately a bed at [facility] is not available yet Hydralazine for sBP > 180 or dBP > 110 Otherwise will continue his routine medications Consulted nephrology - I discussed with Dr. 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 Noyola, will hold warfarin because he will need upcoming procedures and elevated risk of hemorrhage with the aneurysm/pseudoaneurysm does not have clear-cut indication for lifelong anticoagulation risks of bridging likely outweigh the benefits right now, plan to start subcu heparin prophylaxis dose once INR less than 2.0 - daily INR check Plan VTE Prophylaxis - holding warfarin, still therapeutic Admission and Anticipated Discharge Date Admission Date: August 28, 2024 Subjective Feeling fine No abdominal / pelvic pain No shortness of breath Physical Exam 2 Physical Exam: PHYSICAL EXAMINATION Last 24h vital signs reviewed, see documentation in flowsheet General: comfortable appearing, no distress, walking around in the room HEENT: Normocephalic, atraumatic, pupils round and equal, sclerae anicteric, no conjunctival injection, moist mucus membranes Lungs: Normal respiratory effort. Heart: deferred Abdomen: nondistended Extremities: Warm, dry, well-perfused. No extremity edema. Neuro: Alert and oriented x 4, face symmetric, moves 4 extremities well Psych: Normal affect and behavior Results & Data Results & Data Vital Signs (Past 12 Hours) Vital Signs Temp Pulse Resp BP Pulse Ox O2 Del Method 08/29/24 14:54 98.1 F 91 H 18 170/104 H 98 Room Air Laboratory Results 08/27/24 20:15 08/29/24 09:09 INR increased from 2.5-3.2 overnight PG Care Time/CCT Total # of Minutes Spent Total Time Spent with Patient: Total time spent is greater than 50% in coordination of care (as documented) at patient's floor/unit and/or counseling patient: Coding Level of Care Code 80683 SUB INP/OBS CARE 2MIN Diagnoses Aneurysm I72.9 Kidney replaced by transplant Z94.0 Blood clotting disorder D68.9
--- NOTE | 2024-08-30 04:17 | Discharge Summary ---
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 Patient is asymptomatic at this time. Nephrology discussed with Dr. Gallegos at [facility] kidney transplant and he is accepted for transfer to the hospital for evaluation and intervention. Given there is no bed availability for at least 24 hours and on discussion with the clinical coordinator we will admit him and [facility] bed availability at [facility]. No respiratory, gastrointestinal or urinary symptoms. Most recent medication change was stopping his lisinopril due to rising creatinine and switching from atorvastatin to rosuvastatin for leg cramps on August 01. Principal Diagnosis 9 cm aneurysm/pseudoaneurysm Discharge Exam General: comfortable appearing, no distress HEENT: Normocephalic, atraumatic, pupils round and equal, sclerae anicteric, no conjunctival injection, moist mucus membranes Lungs: Normal respiratory effort. Heart: deferred Abdomen: nondistended Extremities: Warm, dry, well-perfused. No extremity edema. 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 Gallegos Unfortunately a bed at [facility] is not available yet Hydralazine for sBP > 180 or dBP > 110 Otherwise will continue his routine medications Consulted nephrology - I discussed with Dr. 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 Noyola, will hold warfarin because he will need upcoming procedures and elevated risk of hemorrhage with the aneurysm/pseudoaneurysm does not have clear-cut indication for lifelong anticoagulation risks of bridging likely outweigh the benefits right now, plan to start subcu heparin prophylaxis dose once INR less than 2.0 - daily INR check Plan VTE Prophylaxis - holding warfarin, still therapeutic Total Time Total Time Spent Total Time Spent (In Minutes): . Discharge Plan Discharge Items Patient Disposition: Transfer Acute Care Hospital Reason For Visit: RENAL ANEURYSM Discharge Diagnosis: Aneurysm Activity: Per Instructions section Non-emergency contact: Primary Care Provider Call non-emergency contact if: you have any medication questions Follow-up/Referrals: Jorge Luis Noyola DO [Primary Care Provider] - Diet: Regular Addtl Attending Provider Instructions: IMPRESSION: 1. Cystic lesions in the pancreas which could be further evaluated with MRI if clinically indicated. 2. Atrophic [place] kidneys and slightly atrophic right lower quadrant transplant kidney. 3. Nonspecific hyperdense lesion in the right lower quadrant near the opening of the right inguinal canal with thin peripheral calcification, measuring approximately 8.9 x 8.1 x 7.8 cm. 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 4. Small to moderate umbilical hernia containing nonobstructed colon. 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 Gallegos Unfortunately a bed at [facility] is not available yet Hydralazine for sBP > 180 or dBP > 110 Otherwise will continue his routine medications Consulted nephrology - I discussed with Dr. 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 Noyola, will hold warfarin because he will need upcoming procedures and elevated risk of hemorrhage with the aneurysm/pseudoaneurysm does not have clear-cut indication for lifelong anticoagulation risks of bridging likely outweigh the benefits right now, plan to start subcu heparin prophylaxis dose once INR less than 2.0 - daily INR check Plan VTE Prophylaxis - holding warfarin, still therapeutic Pending Studies at Discharge: No Stand-Alone Forms: My [employer], Smoking Cessation Skilled Items Patient informed of condition?: Yes DNR: No Discharge Level of Care: Other Communicable Disease: No Discharge Prognosis: Stable Lines: Peripheral IV Urinary Catheter: No Medications and DC Order Prescriptions: Continued warfarin 5 mg tablet 5 mg PO DAILY clopidogrel 75 mg tablet 75 mg PO QAM Qty: 90 3RF azathioprine 50 mg tablet 150 mg PO QAM Qty: 270 3RF gemfibrozil 600 mg tablet 600 mg PO HS Qty: 90 2RF Hold Instructions: Home Medication placed on hold at Doctor's office prednisone 10 mg tablet 10 mg PO QAM Qty: 90 3RF rosuvastatin 5 mg tablet 5 mg PO DAILY Qty: 90 3RF cyanocobalamin (vitamin B-12) 1,000 mcg tablet 1,000 mcg PO DAILY folic acid 800 mcg tablet 800 mcg PO DAILY hydrocortisone 2.5 % cream 1 applic topical BID PRN (Reason: skin irritation) Qty: 30 1RF clindamycin-benzoyl peroxide 1-5 % gel 1 applic TOP BID PRN (Reason: acne) Qty: 45 3RF Procrit 20,000 unit/mL solution 20,000 unit IV .COMPLEX 15 Days Rx Instructions: 20,000 units intravenously every other week; hold for Hgb >11 metoprolol succinate 100 mg tablet extended release 24 hr 100 mg PO DAILY Qty: 90 3RF Discharge Orders: Discharge Order (Routine); Ordered 08/30/24 Ordered By: Johnathan Gallardo Admission Data Admit Date/Time: 08/28/24 12:08 Attending Provider: Mariana Jacob Admit Provider: Emmett Philip Primary Care Provider: Jorge Luis Noyola Other Providers: Emmett Philip; Jorge Luis Noyola
[2024-08-30 07:34] VITALS: TEMP 98.1
[2024-08-30 09:10] LABS: INR 2.5 (0.9-1.1); Prothrombin Time 24.6 Seconds (9.0-12.0)
[2024-08-30 09:19] LABS: Calcium 8.8 mg/dl (8.6-10.3); Creatinine Clr Calc Pharmacy 22.2 ml/min; Potassium 3.9 mmol/L (3.5-5.1)
[2024-08-30] MEDS: ACETAMINOPHEN 500 MG TAB PO PRN (12:02)
[2024-08-30 12:46] VITALS: BP 176/100; PULSE 90; RESP 20
== END 2024-08-30 13:12 | disposition short-term general hospital (02) | DRG 699 ==
LOC: ED 19:52 → SUATTDRO 08-28 12:08 → EDINP 08-28 12:08 → 3N 08-28 13:32